=== PATIENT | female | born 1965 | race African-American/Black ===

== ENCOUNTER → 2022-12-08 | Outpatient (REF) | payer MEDICAID, SELFPAY ==
[2022-12-08 08:17] LABS: Absolute Lymphocyte Count 2.65 X10^3/uL (0.83-4.51); Absolute Neutrophil Count 3.5 X10^3/uL (2.0-7.7); Basophil# 0.03 X10^3/uL; Basophil% 0.4 % (0-1); Eosinophil# 0.26 X10^3/uL; Eosinophils% 3.6 % (0-5); Hematocrit 27.6 % (37-47); Lymphocyte # 2.65 X10^3/ul (0.83-4.51); Lymphocyte % 36.4 % (19-41); Mean Corpuscular Hgb 23.4 pg (27.0-32.0); Mean Corpuscular Volume 80.7 fL (81-99); Mean Platelet Vol. 9.2 fl (6.2-12.0); Monocyte# 0.81 X10^3/uL; Monocyte% 11.1 % (0-10); NRBC Flagged by Analyzer 0 % (0-5); Neutrophil # 3.51 X10^3/uL (2.7-7.7); Neutrophil % 48.1 % (47-70); Platelet Count 497 K/mm3 (150-450); RBC Distribution Width CV 17.3 % (11.6-14.6); Red Blood Count 3.42 M/mm3 (4.2-5.4); White Blood Count 7.3 K/mm3 (4.4-11.0)
[2022-12-08 08:33] LABS: Anion Gap 9 (5-15); BUN 39 mg/dL (7-18); BUN/Creat Ratio 32.2 RATIO (10-20); Calcium,Total 9.5 mg/dL (8.5-10.1); Chloride 102 mmol/L (98-107); Creatinine, Serum 1.21 mg/dL (0.55-1.02); EST Glomerular Filtration Rate 49 mL/min (>60); Est Glom Filt Rate - Afr Amer 59 mL/min (>60); Glucose 164 mg/dL (74-106); Magnesium 1.7 mg/dL (1.6-2.6); Sodium Level 137 mmol/L (136-145)
[2022-12-08 08:55] LABS: Vitamin B12 454 pg/mL (211-911); Vitamin D,25 Hydroxy 42.1 ng/mL
== END | disposition home or self-care (01) ==
LOC: OLS.SW 04:39
PROVIDERS: Visit Provider Internal Medicine
DX: D64.9 Anemia, unspecified (principal); I11.0 Hypertensive heart disease with heart failure; I50.9 Heart failure, unspecified; J44.9 Chronic obstructive pulmonary disease, unspecified; E11.9 Type 2 diabetes mellitus without complications; E55.9 Vitamin D deficiency, unspecified
CPT/HCPCS: 36415; 80048; 82306; 82607; 83735; 85025

== ENCOUNTER → 2022-12-12 | Outpatient (REF) | payer MEDICAID, SELFPAY ==
[2022-12-12 09:09] LABS: Absolute Lymphocyte Count 3.28 X10^3/uL (0.83-4.51); Absolute Neutrophil Count 3.9 X10^3/uL (2.0-7.7); Basophil# 0.02 X10^3/uL; Basophil% 0.2 % (0-1); Eosinophil# 0.36 X10^3/uL; Eosinophils% 4.3 % (0-5); Hematocrit 27.9 % (37-47); Lymphocyte # 3.28 X10^3/ul (0.83-4.51); Lymphocyte % 39.2 % (19-41); Mean Corp Hgb Conc 28.7 g/dL (32-36); Mean Corpuscular Hgb 23.9 pg (27.0-32.0); Mean Corpuscular Volume 83.3 fL (81-99); Mean Platelet Vol. 8.8 fl (6.2-12.0); Monocyte# 0.77 X10^3/uL; Monocyte% 9.2 % (0-10); NRBC Flagged by Analyzer 0 % (0-5); Neutrophil # 3.92 X10^3/uL (2.7-7.7); Neutrophil % 46.9 % (47-70); Platelet Count 516 K/mm3 (150-450); RBC Distribution Width CV 17.7 % (11.6-14.6); RBC Distribution Width SD 53.9 fl (35.1-43.9); Red Blood Count 3.35 M/mm3 (4.2-5.4); White Blood Count 8.4 K/mm3 (4.4-11.0)
[2022-12-12 09:31] LABS: Anion Gap 5 (5-15); BUN 34 mg/dL (7-18); BUN/Creat Ratio 32.1 RATIO (10-20); Calcium,Total 9.3 mg/dL (8.5-10.1); Chloride 105 mmol/L (98-107); Creatinine, Serum 1.06 mg/dL (0.55-1.02); EST Glomerular Filtration Rate 57 mL/min (>60); Est Glom Filt Rate - Afr Amer 69 mL/min (>60); Glucose 152 mg/dL (74-106); Magnesium 1.9 mg/dL (1.6-2.6); Potassium 4.2 mmol/L (3.5-5.1); Sodium Level 138 mmol/L (136-145); Thyroid Stim Hormone (TSH) 1.93 uIU/mL (0.358-3.74)
[2022-12-12 09:39] LABS: Hemoglobin A1c 8.3 % (3.8-5.6)
== END | disposition home or self-care (01) ==
LOC: OLS.SW 05:00
PROVIDERS: Visit Provider Internal Medicine
DX: J44.9 Chronic obstructive pulmonary disease, unspecified (principal); E11.65 Type 2 diabetes mellitus with hyperglycemia; N17.9 Acute kidney failure, unspecified; E78.5 Hyperlipidemia, unspecified; Z79.899 Other long term (current) drug therapy
CPT/HCPCS: 36415; 80048; 83036; 83735; 84443; 85025

== ENCOUNTER → 2022-12-19 | Outpatient (REF) | payer MEDICAID, SELFPAY ==
[2022-12-19 09:43] LABS: Absolute Lymphocyte Count 2.36 X10^3/uL (0.83-4.51); Absolute Neutrophil Count 6.3 X10^3/uL (2.0-7.7); Basophil# 0.03 X10^3/uL; Basophil% 0.3 % (0-1); Hematocrit 25.9 % (37-47); Hemoglobin 7.3 g/dL (12.0-15.0); Lymphocyte # 2.36 X10^3/ul (0.83-4.51); Lymphocyte % 23.6 % (19-41); Mean Corp Hgb Conc 28.2 g/dL (32-36); Mean Corpuscular Hgb 23.2 pg (27.0-32.0); Mean Corpuscular Volume 82.2 fL (81-99); Mean Platelet Vol. 9.6 fl (6.2-12.0); Monocyte# 0.94 X10^3/uL; Monocyte% 9.4 % (0-10); NRBC Flagged by Analyzer 0 % (0-5); Neutrophil # 6.32 X10^3/uL (2.7-7.7); Neutrophil % 63.2 % (47-70); Platelet Count 476 K/mm3 (150-450); RBC Distribution Width CV 17.4 % (11.6-14.6); RBC Distribution Width SD 52.8 fl (35.1-43.9); Red Blood Count 3.15 M/mm3 (4.2-5.4)
[2022-12-19 10:03] LABS: Anion Gap 6 (5-15); BUN 39 mg/dL (7-18); BUN/Creat Ratio 28.3 RATIO (10-20); Calcium,Total 8.9 mg/dL (8.5-10.1); Chloride 104 mmol/L (98-107); Creatinine, Serum 1.38 mg/dL (0.55-1.02); EST Glomerular Filtration Rate 42 mL/min (>60); Est Glom Filt Rate - Afr Amer 51 mL/min (>60); Glucose 178 mg/dL (74-106); Potassium 4.2 mmol/L (3.5-5.1); Sodium Level 138 mmol/L (136-145)
== END | disposition home or self-care (01) ==
LOC: OLS.SW 04:00
PROVIDERS: Visit Provider Internal Medicine
DX: J44.9 Chronic obstructive pulmonary disease, unspecified (principal); I13.0 Hypertensive heart and chronic kidney disease with heart failure and stage 1 through stage 4 chronic kidney disease, or unspecified chronic kidney disease; I50.9 Heart failure, unspecified; N18.9 Chronic kidney disease, unspecified; J96.22 Acute and chronic respiratory failure with hypercapnia
CPT/HCPCS: 36415; 80048; 85025

== ENCOUNTER 2022-12-20 10:15 | Inpatient (IN) | payer MEDICAID, SELFPAY ==
[2022-12-20] VITALS (24 sets, daily range): BP systolic 103–155; BP diastolic 64–111; PULSE 73–103; RESP 12–20; TEMP 36–36.9; O2SAT 91–100; BMI 60.5; BMI 57.9
--- NOTE | 2022-12-20 11:01 | EDS_ITS ---
HPI History of Present Illness Chief Complaint: Alt LOC Informant: EMS and SNF Limited: other (Patient is nonverbal) Onset/Context/Timing Onset: Days Context: Gradual Onset Timing: Continuous Narrative Narrative: Patient presents with altered mental status that has been getting worse over the past few days. Patient is nonverbal and is a poor informant. EMS reports that the patient has had not had her dialysis in several days. senior care staff reports that the patient has become more edematous over the past few days. senior care staff denies any fevers or chills. [facility] Medical History Anuria and oliguria Asthma CHF (congestive heart failure) Chronic diastolic (congestive) heart failure Hypertensive heart and chronic kidney disease Muscle weakness Pulmonary edema Home Medications aspirin 81 mg tablet,delayed release 81 mg PO DAILY HEART HEALTH 12/20/22 [History Last Taken 12/19/22] atorvastatin 20 mg tablet 20 mg PO QHS CHOLESTEROL 12/20/22 [History Last Taken 12/19/22] cyclobenzaprine 10 mg tablet 10 mg PO BID MUSCLE SPASMS 12/20/22 [History Last Taken 12/19/22] diclofenac sodium 1 % topical gel 1 ea topical BID PAIN 12/20/22 [History Last Taken 12/19/22] famotidine 20 mg tablet 20 mg PO DAILY ACID REFLUX 12/20/22 [History Last Taken 12/19/22] fluticasone 113 mcg-salmeterol 14 mcg/actuation breath activated powdr 1 inh inhalation BID SHORTNESS OF BREATH 12/20/22 [History Last Taken 12/19/22] gabapentin 300 mg capsule 300 mg PO BID NERVE PAIN 12/20/22 [History Last Taken 12/19/22] hydralazine 50 mg tablet 50 mg PO TID BLOOD PRESSURE 12/20/22 [History Last Taken 12/19/22] insulin glargine 100 unit/mL subcutaneous solution 28 unit subcut BID DIABETES 12/20/22 [History Last Taken 12/19/22] insulin lispro 100 unit/mL subcutaneous pen 20 unit subcut TIDCM DIABETES 12/20/22 [History Last Taken 12/19/22] isosorbide dinitrate 10 mg tablet 10 mg PO TID BLOOD PRESSURE 12/20/22 [History Last Taken 12/19/22] lidocaine 4 % topical patch (Lidocaine Pain Relief) 2 patch topical BID RIGHT SHOULDER/ARM PAIN 12/20/22 [History Last Taken 12/19/22] melatonin 3 mg tablet 3 mg PO QHS PRN Insomnia 12/20/22 [History Last Taken 12/19/22] metoprolol succinate 50 mg tablet,extended release 24 hr 50 mg PO DAILY BLOOD PRESSURE 12/20/22 [History Last Taken 12/19/22] montelukast 10 mg tablet 10 mg PO QHS ALLERGIES 12/20/22 [History Last Taken 12/19/22] multivitamin 1 tab PO DAILY HEALTH MAINTENANCE 12/20/22 [History Last Taken 12/19/22] polyethylene glycol 3350 17 gram oral powder packet 17 g PO DAILY CONSTIPATION 12/20/22 [History Last Taken 12/19/22] risperidone 0.25 mg tablet 0.25 mg PO DAILY DEPRESSION 12/20/22 [History Last Taken 12/19/22] risperidone 0.5 mg tablet (Risperdal) 0.5 mg PO QHS DEPRESSION 12/20/22 [History Last Taken 12/19/22] risperidone 1 mg tablet (Risperdal) 1 mg PO DAILY DEPRESSION 12/20/22 [History Last Taken 12/19/22] sennosides 8.6 mg tablet (senna) 17.2 mg PO DAILY CONSTIPATION 12/20/22 [History Last Taken 12/19/22] sodium bicarbonate 650 mg tablet 650 mg PO TID ACID REFLUX 12/20/22 [History Last Taken 12/19/22] sucralfate 1 gram tablet 1 g PO TID ULCERS 12/20/22 [History Last Taken 12/19/22] torsemide 20 mg tablet 20 mg PO BID FLUID 12/20/22 [History Last Taken 12/19/22] tramadol 50 mg tablet 50 mg PO BID PRN PAIN 12/20/22 [History Last Taken 12/19/22] Allergy/AdvReac Type Severity Reaction Status Date / Time No Known Allergies Allergy Verified 12/20/22 10:29 Surgical History S/P dialysis catheter insertion Social History Smoking Status: Unknown if ever smoked ROS ROS ED Review of Systems ROS Unobtainable: due to mental status EXAM Physical Exam Const Vital Signs: 12/20/22 10:17 12/20/22 11:19 12/20/22 11:21 Temperature 96.8 F L 97.8 F Temperature Source Temporal Temporal Pulse Rate 103 H 97 97 Respiratory Rate 18 14 18 Respiratory Pattern Blood Pressure 129/84 H 128/69 H 128/69 H Blood Pressure Mean 99 88 88 Pulse Ox 93 93 93 Oxygen Delivery Method Nasal Cannula Nasal Cannula Nasal Cannula Oxygen Flow Rate (L/min) 2 Fraction of Inspired Oxygen (FIO2) 12/20/22 12:32 12/20/22 12:30 12/20/22 12:30 Temperature 97 F L Temperature Source Temporal Pulse Rate 95 96 94 Respiratory Rate 15 13 18 Respiratory Pattern Normal Blood Pressure 139/84 H 139/84 H Blood Pressure Mean 102 102 Pulse Ox 95 95 96 Oxygen Delivery Method Bi-pap Bi-pap Oxygen Flow Rate (L/min) Fraction of Inspired Oxygen (FIO2) 30 12/20/22 13:19 12/20/22 14:32 12/20/22 15:31 Temperature Temperature Source Pulse Rate 95 92 73 Respiratory Rate 15 16 15 Respiratory Pattern Blood Pressure 130/80 H 123/82 H 137/109 H Blood Pressure Mean 96 95 118 Pulse Ox 97 98 96 Oxygen Delivery Method Bi-pap Bi-pap Bi-pap Oxygen Flow Rate (L/min) Fraction of Inspired Oxygen (FIO2) 30 Positive well nourished, well developed and obese General Appearance ED: well developed and NAD Nutritional Appearance: obese HEENT Reports moist mucous membranes Neck supple Resp Auscultation: diminished lung sounds diffuse Cardio regular rate and regular rhythm GI non-tender Auscultation: normoactive bowel sounds Palpation: soft Extremity General Extremety ED: Yes edema; Negative for tenderness General Extremity: edema Neuro Sensorium / Orientation: lethargic Motor Exam: general weakness MDM MDM MDM Narrative Medical decision making narrative: Differential diagnosis includes electrolyte abnormality, hepatic encephalopathy, stroke, intracranial bleeding, hypoglycemia, hyperglycemia, CO2 retention, and sepsis. CBC will be obtained to assess for leukocytosis and anemia. Comprehensive metabolic profile will be obtained to assess for electrolyte abnormality, hepatic function, and renal function. CT scan of the brain will be obtained to assess for intracranial bleeding and stroke. Serum lactate will be obtained to assess for sepsis. Blood cultures will be obtained to assess for sepsis. Ammonia level will be obtained to assess for hepatic encephalopathy. Arterial blood gas will be obtained to assess for CO2 retention. Chest x-ray will be obtained to assess for pneumonia. EKG will be obtained to assess for cardiac dysrhythmia and cardiac ischemia. History & Record Review Additional record(s) reviewed:: Prior labs Lab Data Attestation: I reviewed the patient's lab results. Lab results narrative: CBC was reviewed. There is anemia with a hemoglobin of 7.3 and hematocrit 26.0. This is stable compared to previous results. Comprehensive metabolic profile was reviewed. BUN was 43 and creatinine was 1.76. These are only slightly increased from previous results. Total bilirubin was normal at 0.10. Glucose was slightly elevated at 154. BNP was elevated at 664.4. Serum ammonia level was reviewed and was elevated at 53.0. Lactate was reviewed and was normal at 0.7. COVID-19 rapid antigen was reviewed and is negative. Influenza A and influenza B antigens were reviewed and were negative. Arterial blood gas was reviewed. pH was 7.27, bicarb was 29.6, O2 saturation was 91%, PCO2 was elevated at 64.3, PO2 was slightly low at 70. Labs: Laboratory Results - last 24 hr 12/20/22 12/20/22 12/20/22 10:29 10:29 10:29 WBC 10.8 RBC 3.21 L Hgb 7.3 L Hct 26.0 L MCV 81.0 MCH 22.7 L MCHC 28.1 L RDW Std Deviation 51.5 H RDW Coeff of Abbe 17.5 H Plt Count 447 MPV 9.4 Immature Gran % (Auto) 0.600 Neut % (Auto) 58.0 Lymph % (Auto) 28.2 [place] % (Auto) 11.8 H Eos % (Auto) 1.0 Baso % (Auto) 0.4 Absolute Neuts (auto) 6.3 Absolute Lymphs (auto) 3.05 Nucleated RBC % 0 PT 14.2 INR 1.1 APTT 35.2 Sodium 140 Potassium 4.6 Chloride 104 Carbon Dioxide 29.0 Anion Gap 7 BUN 43 H Creatinine 1.76 H Estim Creat Clear Calc 32.50 Est GFR (MDRD) Af Amer 39 L Est GFR (MDRD) Non-Af 32 L BUN/Creatinine Ratio 24.4 H Glucose 154 H Lactic Acid Calcium 8.6 Total Bilirubin 0.10 L AST 22 ALT 16 Alkaline Phosphatase 81 Ammonia B-Natriuretic Peptide Total Protein 7.0 Albumin 2.8 L Globulin 4.2 Albumin/Globulin Ratio 0.7 L 12/20/22 12/20/22 12/20/22 10:29 10:29 10:29 WBC RBC Hgb Hct MCV MCH MCHC RDW Std Deviation RDW Coeff of Abbe Plt Count MPV Immature Gran % (Auto) Neut % (Auto) Lymph % (Auto) [place] % (Auto) Eos % (Auto) Baso % (Auto) Absolute Neuts (auto) Absolute Lymphs (auto) Nucleated RBC % PT INR APTT Sodium Potassium Chloride Carbon Dioxide Anion Gap BUN Creatinine Estim Creat Clear Calc Est GFR (MDRD) Af Amer Est GFR (MDRD) Non-Af BUN/Creatinine Ratio Glucose Lactic Acid 0.7 Calcium Total Bilirubin AST ALT Alkaline Phosphatase Ammonia 53.0 H B-Natriuretic Peptide 664.4 H Total Protein Albumin Globulin Albumin/Globulin Ratio ABG Data ABG results: ABG 12/20/22 11:48 Specimen Type ART Sample Site L Radial pH 7.27 L Bicarbonate Actual 29.6 H Total CO2 32 Base Excess 3 H O2 Saturation 91 L ABG pCO2 64.3 H ABG pO2 70 L Bill Test Positive O2 Delivery Device Cannula Liter Flow 2.0 Radiography Diagnostic Testing: Clinical Impression(s) from Imaging Studies Brain CT 12/20/22 11:07 IMPRESSION: Normal unenhanced CT scan of the brain. Electronically Signed: Jared Walsh MD at 12:22 EDT , Chest X-Ray 12/20/22 11:07 IMPRESSION: CHF Electronically Signed: Jared Walsh MD at 13:24 EDT , CT scan of the brain was obtained. There is no acute intracranial abnormality. This was interpreted by the radiologist and was also independently reviewed by myself. Chest x-ray was obtained. There is 1 view. On my independent interpretation, there is evidence of congestive heart failure. There is no acute infiltrate. Radiologist also interpreted the x-rays and agrees. EKG Initial EKG: Attestation: I personally reviewed and interpreted this EKG as follows: Interpretation: Sinus Rhythm (97) and No Acute Injury Pattern Comments: EKG was obtained. On my independent interpretation, it showed a normal sinus rhythm with a rate of 97. OK interval, QRS interval, and QTc intervals were all normal. There is right axis deviation at 148. There are no acute ST or T wave changes. Prior EKG tracings: not available for review Prior: No Prior Management Discussion w/another healthcare provider: Hospitalist (Dr. Cline) and Night Auditor (Dr. Noriega) Treatment and Re-Evaluation :: Patient was started on BiPAP. Patient was given Lasix. Patient was given a dose of rectal lactulose. Case was discussed with the hospitalist. He recommended contacting the [employer] rep. Case was discussed with Dr. Noriega. He had no further recommendations. Patient will be admitted to ICU. Critical Care Time Critical Care Time: Yes Critical care time (excluding procedures): 30-74 minutes (34), Including time spent:, Discussing w/Patient &/or Family/Community Recreation Coordinator, Discussing w/Consultants, Arranging Admission or Transfer and Performing Direct Patient Care at Bedside Discharge Plan Dx/Rx/DC Orders Clinical Impression: Acute alteration in mental status, Congestive heart failure, Hypercarbia, Hyperammonemia Disposition Disposition: [facility]
--- NOTE | 2022-12-20 11:07 | RAD_ITS ---
STUDY: X-RAY CHEST REASON FOR EXAM: Female, 57 years old. Altered mental status TECHNIQUE: Single AP portable view of the chest. COMPARISON: None. FINDINGS: Right central venous catheter terminates in the distal SVC/right atrial junction. Mild pulmonary vascular congestion is present. No visualized consolidation. There is no demonstrated pleural abnormality. Moderate cardiomegaly. Normal mediastinum and dylan. There is prominence of the pulmonary hilar arteries and peripheral pulmonary arteries, consistent with congestive heart failure (CHF). There is atherosclerotic tortuosity of the aortic arch and descending thoracic aorta. There are diffuse degenerative changes of the visualized thoracic spine. Normal visualized ribs, clavicles, and shoulders. There is no demonstrated abnormality of the visualized soft tissue structures of the upper abdomen. RAD/Chest 1 View (Portable) IMPRESSION: CHF Electronically Signed: Jared Walsh MD at 13:24 EDT ,
--- NOTE | 2022-12-20 11:07 | CT_ITS ---
STUDY: CT BRAIN WITHOUT CONTRAST REASON FOR EXAM: Female, 57 years old. Altered mental status RADIATION DOSAGE (If Supplied By Facility): CTDIvol = ( 47.06 ) mGy, DLP = ( 872.68 ) mGycm TECHNIQUE: Transaxial CT imaging of the brain was performed without administration of intravenous contrast material. Individualized dose optimization techniques were used for this CT. COMPARISON: None. FINDINGS: Normal soft tissue structures. Normal calvarium. No visualized dense artery sign or sulcal effacement or parenchymal edema. No hydrocephalus or midline shift is seen. Normal size ventricles and extra-axial spaces for the patient''s age. Normal white matter tracts of the cerebral hemispheres. Normal basal ganglia and thalami. Normal brainstem. Normal cerebellum. There is no intracranial hemorrhage. There are no findings of an acute ischemic infarction. Normal visualized paranasal sinuses. CT/Brain/Head without Contrast IMPRESSION: Normal unenhanced CT scan of the brain. Electronically Signed: Jared Walsh MD at 12:22 EDT ,
--- NOTE | 2022-12-20 11:07 | EKG12_ITS ---
Test Reason : UNRESPONSIVE Blood Pressure : / mmHG Vent. Rate : 097 BPM Atrial Rate : 097 BPM P-R Int : 194 ms QRS Dur : 086 ms QT Int : 360 ms P-R-T Axes : 063 148 045 degrees QTc Int : 457 ms Sinus rhythm with frequent Premature ventricular complexes Right axis deviation Low voltage QRS Cannot rule out Anterior infarct , age undetermined Abnormal ECG Confirmed by PILI ARREDONDO, CRIS ([id number]), features editor AIMEE BORGES ([id number]) on 12/22/2022 8:52:03 AM Referred By: KLEBER Confirmed By:CRIS ALEJANDRE MD
[2022-12-20 11:21] LABS: Absolute Lymphocyte Count 3.05 X10^3/uL (0.83-4.51); Absolute Neutrophil Count 6.3 X10^3/uL (2.0-7.7); Basophil# 0.04 X10^3/uL; Basophil% 0.4 % (0-1); Eosinophil# 0.11 X10^3/uL; Hemoglobin 7.3 g/dL (12.0-15.0); Lymphocyte # 3.05 X10^3/ul (0.83-4.51); Lymphocyte % 28.2 % (19-41); Mean Corp Hgb Conc 28.1 g/dL (32-36); Mean Corpuscular Hgb 22.7 pg (27.0-32.0); Mean Platelet Vol. 9.4 fl (6.2-12.0); Monocyte# 1.28 X10^3/uL; Monocyte% 11.8 % (0-10); NRBC Flagged by Analyzer 0 % (0-5); Neutrophil # 6.29 X10^3/uL (2.7-7.7); Platelet Count 447 K/mm3 (150-450); RBC Distribution Width CV 17.5 % (11.6-14.6); RBC Distribution Width SD 51.5 fl (35.1-43.9); Red Blood Count 3.21 M/mm3 (4.2-5.4); White Blood Count 10.8 K/mm3 (4.4-11.0)
[2022-12-20 11:50] LABS: International Normalized Ratio 1.1; Prothrombin Time (Protime)PT. 14.2 SECONDS (11.7-14.9)
[2022-12-20 11:51] LABS: Partial Thromboplast Time 35.2 Seconds (24.1-36.2)
[2022-12-20 11:55] LABS: Allen Test Positive; Base Excess 3 mmol/L (-2 to +2); Bicarbonate 29.6 mmol/L (22-26); Blood Gas Specimen Type ART; O2 Delivery Device Cannula; PO2 70 mmHG (75-100); SITE L Radial; SO2 91 % (95-99); Total Carbon Dioxide 32 mmol/L; pCO2 64.3 mmHg (35-45); pH 7.27 (7.35-7.45)
[2022-12-20 11:59] LABS: BNP,B-Type NATRIURETIC PEPTIDE 664.4 pg/mL (0-100)
[2022-12-20 12:32] LABS: ALB/GLOB Ratio 0.7 RATIO (0.9-2.4); AST(SGOT) 22 U/L (15-37); Alanine Aminotransfer ALT/SGPT 16 U/L (13-56); Albumin, Serum 2.8 g/dL (3.2-5.0); Alkaline Phosphatase 81 U/L (45-117); Anion Gap 7 (5-15); BUN 43 mg/dL (7-18); BUN/Creat Ratio 24.4 RATIO (10-20); Calcium,Total 8.6 mg/dL (8.5-10.1); Chloride 104 mmol/L (98-107); Creatinine, Serum 1.76 mg/dL (0.55-1.02); EST Glomerular Filtration Rate 32 mL/min (>60); Est Glom Filt Rate - Afr Amer 39 mL/min (>60); Globulin 4.2 g/dL (2.2-4.2); Glucose 154 mg/dL (74-106); Lactic Acid 0.7 mmol/L (0.4-1.9); Potassium 4.6 mmol/L (3.5-5.1); Sodium Level 140 mmol/L (136-145)
[2022-12-20] MEDS: Furosemide 40 MG/4 ML Vial IV ×2 (14:55→18:48)
[2022-12-20] MEDS: Lactulose 20 GM/30 ML UDC 200 GM RC (15:14)
--- NOTE | 2022-12-20 15:16 | HP.PCM.HOS_ITS ---
HPI - General General Date of Admission: 12/20/22 Date of Service: 12/20/22 Chief Complaint: Decreased responsiveness over last few days to the point of minimal responsiveness in the morning as described by EMS. HPI Narrative CELESTE MOLINA, is a 57 F morbid obesity, [facility] resident was brought to ED by EMS from [facility] for for minimal responsiveness only to sternal rub. As per nursing staff she was alert oriented times 3 in the morning but from EMS it seems she had decreased responsiveness last few days. Patient is also edematous in all 4 extremities. Glucose 210 by EMS. She also has limited mobility on wheelchair. No history of fever from [facility]. There were no medication given in the morning. Patient has history of COPD on 3 L of oxygen through nasal cannula and BiPAP at night. Patient has right permacath and was admitted on December [address] [facility] to [facility] and since then was not dialyzed. Her kidney function does not show high creatinine and electrolytes in normal range. From [facility] documentation it seems patient has chronic systolic and diastolic heart failure, pulmonary edema and past, hypertension, DM type II and chronic kidney disease EMS vitals 128/70 heart rate 103/min. Patient was short of breath In ED, ABG shows high PCO2 64.3, pH 7.27 PO2 70 on 2 L of oxygen through nasal cannula and then put on BiPAP. Lactic acid normal. Ammonia 53 although unclear about history of chronic liver disease. BNP high 664. Twelve-lead EKG individually reviewed and shows sinus rhythm with frequent PVCs, RAD, low voltage QRS QTc 457 ms. Chest x-ray mutilative and portable x-ray with poor penetration. Consistent with vascular congestion/CHF. CT head without contrast reported normal. [facility] Medical History Anuria and oliguria Asthma CHF (congestive heart failure) Chronic diastolic (congestive) heart failure Hypertensive heart and chronic kidney disease Muscle weakness Pulmonary edema Home Medications aspirin 81 mg tablet,delayed release 81 mg PO DAILY HEART HEALTH 12/20/22 [History Last Taken 12/19/22] atorvastatin 20 mg tablet 20 mg PO QHS CHOLESTEROL 12/20/22 [History Last Taken 12/19/22] cyclobenzaprine 10 mg tablet 10 mg PO BID MUSCLE SPASMS 12/20/22 [History Last Taken 12/19/22] diclofenac sodium 1 % topical gel 1 ea topical BID PAIN 12/20/22 [History Last Taken 12/19/22] famotidine 20 mg tablet 20 mg PO DAILY ACID REFLUX 12/20/22 [History Last Taken 12/19/22] fluticasone 113 mcg-salmeterol 14 mcg/actuation breath activated powdr 1 inh inhalation BID SHORTNESS OF BREATH 12/20/22 [History Last Taken 12/19/22] gabapentin 300 mg capsule 300 mg PO BID NERVE PAIN 12/20/22 [History Last Taken 12/19/22] hydralazine 50 mg tablet 50 mg PO TID BLOOD PRESSURE 12/20/22 [History Last Taken 12/19/22] insulin glargine 100 unit/mL subcutaneous solution 28 unit subcut BID DIABETES 12/20/22 [History Last Taken 12/19/22] insulin lispro 100 unit/mL subcutaneous pen 20 unit subcut TIDCM DIABETES 12/20/22 [History Last Taken 12/19/22] isosorbide dinitrate 10 mg tablet 10 mg PO TID BLOOD PRESSURE 12/20/22 [History Last Taken 12/19/22] lidocaine 4 % topical patch (Lidocaine Pain Relief) 2 patch topical BID RIGHT SHOULDER/ARM PAIN 12/20/22 [History Last Taken 12/19/22] melatonin 3 mg tablet 3 mg PO QHS PRN Insomnia 12/20/22 [History Last Taken 12/19/22] metoprolol succinate 50 mg tablet,extended release 24 hr 50 mg PO DAILY BLOOD PRESSURE 12/20/22 [History Last Taken 12/19/22] montelukast 10 mg tablet 10 mg PO QHS ALLERGIES 12/20/22 [History Last Taken 12/19/22] multivitamin 1 tab PO DAILY HEALTH MAINTENANCE 12/20/22 [History Last Taken 12/19/22] polyethylene glycol 3350 17 gram oral powder packet 17 g PO DAILY CONSTIPATION 12/20/22 [History Last Taken 12/19/22] risperidone 0.25 mg tablet 0.25 mg PO DAILY DEPRESSION 12/20/22 [History Last Taken 12/19/22] risperidone 0.5 mg tablet (Risperdal) 0.5 mg PO QHS DEPRESSION 12/20/22 [History Last Taken 12/19/22] risperidone 1 mg tablet (Risperdal) 1 mg PO DAILY DEPRESSION 12/20/22 [History Last Taken 12/19/22] sennosides 8.6 mg tablet (senna) 17.2 mg PO DAILY CONSTIPATION 12/20/22 [History Last Taken 12/19/22] sodium bicarbonate 650 mg tablet 650 mg PO TID ACID REFLUX 12/20/22 [History Last Taken 12/19/22] sucralfate 1 gram tablet 1 g PO TID ULCERS 12/20/22 [History Last Taken 12/19/22] torsemide 20 mg tablet 20 mg PO BID FLUID 12/20/22 [History Last Taken 12/19/22] tramadol 50 mg tablet 50 mg PO BID PRN PAIN 12/20/22 [History Last Taken 12/19/22] Allergy/AdvReac Type Severity Reaction Status Date / Time No Known Allergies Allergy Verified 12/20/22 10:29 Surgical History S/P dialysis catheter insertion Social History Smoking Status: Unknown if ever smoked ROS ROS Narrative 14 system ROS unobtainable/incomplete as patient is minimally responsive to sternal rub. Rest as documented in HPI. Review of Systems ROS Unobtainable: due to encephalopathy and due to mental condition Vital Signs Vital Signs Vital Signs: 12/20/22 10:17 12/20/22 11:19 12/20/22 11:21 Temperature 96.8 F L 97.8 F Temperature Source Temporal Temporal Pulse Rate 103 H 97 97 Respiratory Rate 18 14 18 Respiratory Pattern Blood Pressure 129/84 H 128/69 H 128/69 H Blood Pressure Mean 99 88 88 Pulse Ox 93 93 93 Oxygen Delivery Method Nasal Cannula Nasal Cannula Nasal Cannula Oxygen Flow Rate (L/min) 2 Fraction of Inspired Oxygen (FIO2) 12/20/22 12:32 12/20/22 12:30 12/20/22 12:30 Temperature 97 F L Temperature Source Temporal Pulse Rate 95 96 94 Respiratory Rate 15 13 18 Respiratory Pattern Normal Blood Pressure 139/84 H 139/84 H Blood Pressure Mean 102 102 Pulse Ox 95 95 96 Oxygen Delivery Method Bi-pap Bi-pap Oxygen Flow Rate (L/min) Fraction of Inspired Oxygen (FIO2) 30 12/20/22 13:19 12/20/22 14:32 Temperature Temperature Source Pulse Rate 95 92 Respiratory Rate 15 16 Respiratory Pattern Blood Pressure 130/80 H 123/82 H Blood Pressure Mean 96 95 Pulse Ox 97 98 Oxygen Delivery Method Bi-pap Bi-pap Oxygen Flow Rate (L/min) Fraction of Inspired Oxygen (FIO2) Weight Weight: 363 lb 12.203 oz Body Mass Index (BMI) 60.5 Physical Exam Narrative General: Minimally responsive to sternal rub with eye opening. HEENT: Atraumatic, PERRLA, EOMI, Normocephalic Oral: On BiPAP. No Gingival or Mucosal Lesions/ Ulcerations Neck: Large short neck. JVP could not be evaluated as patient on PPV. Supple, Negative Carotid Bruits Lungs: On NIPPV. Air entry severely diminished in both lung [place]. Bilateral expiratory rhonchi. Cardiovascular: Sinus tachycardia, muffled heart sound. No murmurs Abdomen: Bowel Sounds Present, Soft, Non Tender, large abdominal fat : No renal angle tenderness. No suprapubic tenderness. Extremities: All 4 extremities edema. Upper extremity edema up to hand. Lower extremity up to thigh level. Capillary Refill Less than 3 Seconds Skin: Bilateral groin yeast infection/stress Musculoskeletal: Severe degenerative bilateral knee and hip arthritis. Knee bones hard to palpate. No Tenderness to Palpation of Joints or Extremities Neurological: Detailed neuro exams unobtainable. Psych/Mental Status: Minimally responsive. Results Lab / Micro Data Result Diagrams: 12/20/22 10:29 12/20/22 10:29 Labs: Laboratory Results - last 24 hr 12/20/22 10:29: WBC 10.8, RBC 3.21 L, Hgb 7.3 L, Hct 26.0 L, MCV 81.0, MCH 22.7 L, MCHC 28.1 L, RDW Std Deviation 51.5 H, RDW Coeff of Abbe 17.5 H, Plt Count 447, MPV 9.4, Immature Gran % (Auto) 0.600, Neut % (Auto) 58.0, Lymph % (Auto) 28.2, [place] % (Auto) 11.8 H, Eos % (Auto) 1.0, Baso % (Auto) 0.4, Absolute Neuts (auto) 6.3, Absolute Lymphs (auto) 3.05, Nucleated RBC % 0 12/20/22 10:29: PT 14.2, INR 1.1, APTT 35.2 12/20/22 10:29: Sodium 140, Potassium 4.6, Chloride 104, Carbon Dioxide 29.0, Anion Gap 7, BUN 43 H, Creatinine 1.76 H, Estim Creat Clear Calc 32.50, Est GFR (MDRD) Af Amer 39 L, Est GFR (MDRD) Non-Af 32 L, BUN/Creatinine Ratio 24.4 H, Glucose 154 H, Calcium 8.6, Total Bilirubin 0.10 L, AST 22, ALT 16, Alkaline Phosphatase 81, Total Protein 7.0, Albumin 2.8 L, Globulin 4.2, Albumin/Globulin Ratio 0.7 L 12/20/22 10:29: B-Natriuretic Peptide 664.4 H 12/20/22 10:29: Lactic Acid 0.7 12/20/22 10:29: Ammonia 53.0 H Micro: Microbiology 12/20/22 11:18 Nasal Secretion SARS-CoV-2 & FLU Antigen (Rapid) - Final ABG Data ABG results: ABG 12/20/22 11:48 Specimen Type ART Sample Site L Radial pH 7.27 L Bicarbonate Actual 29.6 H Total CO2 32 Base Excess 3 H O2 Saturation 91 L ABG pCO2 64.3 H ABG pO2 70 L Bill Test Positive O2 Delivery Device Cannula Liter Flow 2.[address] 12/20/22 11:07 IMPRESSION: Normal unenhanced CT scan of the brain. Electronically Signed: Jared Walsh MD at 12:22 EDT , Chest X-Ray 12/20/22 11:07 IMPRESSION: CHF Electronically Signed: Jared Walsh MD at 13:24 EDT , Assessment & Plan Assessment/Plan (1) Acute alteration in mental status: (2) Acute and chronic respiratory failure with hypercapnia: (3) Acute on chronic combined systolic and diastolic heart failure: PLAN: Plan CELESTE MOLINA, is a 57 F morbid obesity, [facility] resident was brought to ED by EMS from [facility] for for minimal responsiveness only to sternal rub and symptoms signs consistent with acute on chronic combined respiratory failure. 1. Altered mental status/minimally responsive, exact etiology unclear possible metabolic: Patient is being admitted in ICU. Continue on BiPAP. Infectious work-up ordered including blood cultures, sputum culture, urinary antigens, COVID-19 and respiratory panel. Ammonia 53 of unclear significance. Lactulose enema ordered in ER. Rest as mentioned below. 2. Acute on chronic combined systolic and diastolic heart failure: Chest x-ray consistent with pulmonary vascular congestion/CHF. BNP high. Patient has first ED visit here.No prior imaging echo. 2D echo ordered. Lasix 40 mg IV given in ED. Patient going to have Dalton catheter in ED. If patient does not make urine we will repeat 80 mg IV Lasix after few hours. Discussed with the supervisor international reservations. Heart failure core measures including intake and output, fluid restriction less than 1500 mL, daily weight monitoring, kidney and electrolytes monitoring 3. Acute on chronic combined respiratory failure with history of COPD: Patient on baseline 3 L of oxygen during daytime and BiPAP at night in [facility]. Currently patient is on BiPAP and maintaining her airway. ICU monitoring and if needed will intubate and put on ventilator. Geological E Logger consulted. On DuoNeb, IV Solu-Medrol and oxygen therapy. Incentive spirometry and Pep after patient is more awake. Empirically patient started on IV antibiotic Zosyn although no clear evidence of infection for now. 4. Chronic kidney disease of unclear restaging: BUNs/creatinine 43/1.76. As per [facility], patient has chronic kidney disease and probably was dialyzed about 3 weeks ago. Creatinine clearance is 32 mill per minute. Book Critic is consulted. If patient does not make urine will need hemodialysis. Patient has a right upper chest permacath 5. Diabetes mellitus type 2: Glucose 154 in BMP. Accu-Cheks every 6 hours incorrigible of sliding scale. 6. Other multiple comorbidities include hypertension, limited functional capacity/physical deconditioning with bilateral degenerative knee arthritis on wheelchair, morbid obesity BMI 60.5 kg/m?, smoker unclear whether she quit or active smoking. Living will/advanced directive/end of life care: As per [facility] documentation patient is full code. There is no living will/advanced directive in patient's chart in ED. Her daughter Carlota Molina is listed as next of kin. We will keep as full code for now Total time spent in [id number] encounter in discussion of advanced directive 17 minutes. Microbiology Past 72 Hours 12/20/22 11:18 Nasal Secretion SARS-CoV-2 & FLU Antigen (Rapid) - Final Laboratory Results 12/20/22 10:29: WBC 10.8, RBC 3.21 L, Hgb 7.3 L, Hct 26.0 L, MCV 81.0, MCH 22.7 L, MCHC 28.1 L, RDW Std Deviation 51.5 H, RDW Coeff of Abbe 17.5 H, Plt Count 447, MPV 9.4, Immature Gran % (Auto) 0.600, Neut % (Auto) 58.0, Lymph % (Auto) 28.2, [place] % (Auto) 11.8 H, Eos % (Auto) 1.0, Baso % (Auto) 0.4, Absolute Neuts (auto) 6.3, Absolute Lymphs (auto) 3.05, Nucleated RBC % 0 12/20/22 10:29: PT 14.2, INR 1.1, APTT 35.2 12/20/22 10:29: Sodium 140, Potassium 4.6, Chloride 104, Carbon Dioxide 29.0, Anion Gap 7, BUN 43 H, Creatinine 1.76 H, Estim Creat Clear Calc 32.50, Est GFR (MDRD) Af Amer 39 L, Est GFR (MDRD) Non-Af 32 L, BUN/Creatinine Ratio 24.4 H, Glucose 154 H, Calcium 8.6, Total Bilirubin 0.10 L, AST 22, ALT 16, Alkaline Td sphatase 81, Total Protein 7.0, Albumin 2.8 L, Globulin 4.2, Albumin/Globulin Ratio 0.7 L 12/20/22 10:29: B-Natriuretic Peptide 664.4 H 12/20/22 10:29: Lactic Acid 0.7 12/20/22 10:29: Ammonia 53.0 H 12/20/22 11:48: Specimen Type ART, Sample Site L Radial, pH 7.27 L, Bicarbonate Actual 29.6 H, Total CO2 32, Base Excess 3 H, O2 Saturation 91 L, ABG pCO2 64.3 H, ABG pO2 70 L, Bill Test Positive, O2 Delivery Device Cannula, Liter Flow 2.0 Clinical Impression(s) from Imaging Studies Brain CT 12/20/22 11:07 IMPRESSION: Normal unenhanced CT scan of the brain. Chest X-Ray 12/20/22 11:07 IMPRESSION: CHF Electronically Signed: Jared Walsh MD at 13:24 EDT Reading Location ID and State: [address] [place] [address] , Service support , Charges/Coding Visit Charges Inpatient E&M: 68739 Init Hosp L3 Procedures Hospitalists Procedures: 21111 Advncd Care Plan 30 Min
--- NOTE | 2022-12-20 15:37 | ED.RN ---
ATTEMPTED TO DO LACTULOSE ENEMA, UNSUCCESSFUL. PT UNABLE TO HOLD ENEMA. DR SMITH MADE AWARE.
--- NOTE | 2022-12-20 16:18 | ECHOCS_ITS ---
Reason For Study: heart failure Procedure This was a 2D Doppler, Color Flow transthoracic echocardiogram. The study was technically limited. The study was technically difficult. Due to patient being uncooperative/emotional. Exam performed portable in ICU/CCU. Left Ventricle Normal left ventricle. Mild concentric left ventricular hypertrophy. The estimated ejection fraction is 45 %. There is mild to moderate global hypokinesis of the left ventricle. Right Ventricle Normal RV size. Normal systolic function. Atria The left atrium is moderately enlarged. Normal right atrium. Tricuspid Valve The tricuspid valve is not well visualized. Mild tricuspid valve insufficiency. Pulmonary artery systolic pressure is 35 mmHg. Pericardium/Pleural No pericardial effusion. Medication Diluted definity 7.0ml given slow IV push to enhance endocardial definition. MMode/2D Measurements & Calculations LVIDd: 5.3 cm IVSd: 1.4 cm Ao root diam: 3.2 cm LVIDs: 4.1 cm LVPWd: 1.5 cm RVDd: 4.3 cm FS: 23.8 % LAV(MOD-bp): 109.0 ml SV(MOD-sp4): 77.2 ml LVAd ap4: 42.1 cm2 LAV(MOD-bp) Indexed: 42.9 ml/m2 LVLd ap4: 9.5 cm LAV(MOD-sp2): 106.7 ml EDV(MOD-sp4): 156.7 ml LAV(MOD-sp4): 106.8 ml EDV(sp4-el): 158.8 ml LVAs ap4: 26.5 cm2 LVLs ap4: 7.6 cm ESV(MOD-sp4): 79.5 ml ESV(sp4-el): 79.0 ml EF(MOD-sp4): 49.3 % EF(sp4-el): 50.2 % SV(sp4-el): 79.8 ml LA A4 area: 28.5 cm2 LA dimension(2D): 5.5 cm RA A4 area: 18.3 cm2 Time Measurements MV dec time: 0.11 sec Doppler Measurements & Calculations MV E max krishna: 112.1 cm/sec Ao V2 max: 136.4 cm/sec LV V1 max: 78.3 cm/sec MV A max krishna: 84.0 cm/sec Ao max P.4 mmHg LV V1 max P.5 mmHg MV E/A: 1.3 Ao V2 mean: 96.3 cm/sec LV V1 mean P.6 mmHg Ao mean P.0 mmHg LV V1 mean: 62.2 cm/sec Ao V2 VTI: 22.5 cm LV V1 VTI: 15.6 cm AV (velocity ratio): 0.69 PA V2 max: 77.4 cm/sec TR max krishna: 274.2 cm/sec TR max P.1 mmHg ECHO/Echo Complete W/ Contrast Interpretation Summary Normal left ventricle. The estimated ejection fraction is 45 %. There is mild to moderate global hypokinesis of the left ventricle. Mild concentric left ventricular hypertrophy. Pulmonary artery systolic pressure is 35 mmHg. Contrast injection was performed. Ordering Physician: Alexandr Cline Referring Physician: Isha Alberts Performed By: Racheal Garcia RDCS, RVT
--- NOTE | 2022-12-20 16:46 | ED.RN ---
report called per jonelle andino rn to icu. cps called and pt placed on 3lnc and cps following with bipap. pt stayed with pox 94-95% during transfer.
[2022-12-20 17:20] LABS: Bedside Glucose 117 mg/dL (74-106)
[2022-12-20] MEDS: Heparin Injection (Vial) 5,000 UNIT/ML VIAL 5000 UNIT SC ×2 (17:48→22:22)
[2022-12-20] MEDS: Aspirin E.C. 81 MG Tablet PO (17:49)
[2022-12-20] MEDS: 0.9% Saline Lock 10 ML Syringe IV (18:48)
[2022-12-20] MEDS: Ipratropium/Albuterol Sulfate 3 ML AMPUL.NEB INHALATION ×2 (19:10→23:14)
[2022-12-20] MEDS: Atorvastatin Calcium 40 MG Tablet PO (22:22)
[2022-12-20 22:47] LABS: CPK Total, Creatine Kinase 77 U/L (26-192); Magnesium 2.4 mg/dL (1.6-2.6); Phosphorus 5.5 mg/dL (2.5-4.9); Troponin-I HS 260 pg/mL (3.0-54.0)
[2022-12-21] VITALS (30 sets, daily range): BP systolic 99–150; BP diastolic 64–100; PULSE 90–101; RESP 12–26; TEMP 36.1–37.2; O2SAT 90–98; BMI 58.0
[2022-12-21] MEDS: Ipratropium/Albuterol Sulfate 3 ML AMPUL.NEB INHALATION ×4 (03:39→23:02)
--- NOTE | 2022-12-21 03:40 | NURSING ---
pt refused labs this AM.
[2022-12-21] MEDS: Heparin Injection (Vial) 5,000 UNIT/ML VIAL 5000 UNIT SC ×3 (05:05→20:32)
--- NOTE | 2022-12-21 06:53 | PN.HOSP_ITS ---
Reason for Visit Reason for Visit: Altered mental status Subjective Subjective Mrs. Carroll is a 57-year-old white female who who has a history of morbid obesity and resides in a local correction who was brought to the emergency department at [facility] on 12/20/2022 for minimal responsiveness only to sternal rub. Evidently she was alert and oriented times 3 in the morning but per EMS documentation decreased responsiveness over the last few days was noted. Blood sugar was normal. She is O2 dependent with 3 L of oxygen at baseline and BiPAP at night. ABG showed hypercapnia on 2 L and a respiratory acidosis. pH was 7.27/PCO2 was 64.3/PO2 is 70 on 2 L supplemental nasal cannula. CBC showed a stable normocytic anemia. Chemistry panel showed a serum creatinine is elevated and seems to be rising when compared to previous data. The patient has evidently been on dialysis previously. Her ammonia level is slightly elevated at 53. Her initial troponin was 260. BNP was elevated at 664.4. Vital signs have overall been stable however patient is requiring a bit more oxygen than her baseline is currently on 5 L nasal cannula with an oxygen saturation of 90%. Patient's mental status is returned to baseline. She has multiple complaints about what happened overnight with regards to nursing. I have asked her to discuss this with the new word processing supervisor and she will go ahead and do that. She is complaining of right shoulder pain and right arm swelling. She states the shoulder pain started when she had a fall the other day. She really wants to go back to [facility] today and I expressed to her that if we can keep things stabilized and her work-up is unremarkable tomorrow we may be able to go ahead and do that. She voiced understanding and thought that sounded like a good plan. I was unable to ascertain with a direct answer if she has been getting her BiPAP at night since she has been at [facility]. Objective Data Objective Data Vital Signs: Vital Signs Temp Pulse Resp BP Pulse Ox O2 Del Method O2 Flow Rate 98.3 F 94 18 131/72 H 90 Nasal Cannula 5 12/21/22 06:00 12/21/22 06:00 12/21/22 06:00 12/21/22 06:00 12/21/22 06:00 12/21/22 06:00 12/21/22 06:00 FiO2 30 12/21/22 03:37 Oxygen Flow Rate (L/min) 5 Oxygen Delivery Method Nasal Cannula Weight: 163.7 kg Body Mass Index (BMI) 58.0 Intake & Output: Intake and Output for Last 24 Hours 12/19/22 12/20/22 12/21/22 23:59 23:59 23:59 Intake Total 50.25 / 50.25 77 / 77 Output Total 1200 / 1200 550 / 550 Balance -1149.75 / -1149.75 -473 / -473 Lab / Micro Data Result Diagrams: 12/21/22 07:50 12/21/22 07:50 Labs: Laboratory Results - last 24 hr 12/20/22 10:29: WBC 10.8, RBC 3.21 L, Hgb 7.3 L, Hct 26.0 L, MCV 81.0, MCH 22.7 L, MCHC 28.1 L, RDW Std Deviation 51.5 H, RDW Coeff of Abbe 17.5 H, Plt Count 447, MPV 9.4, Immature Gran % (Auto) 0.600, Neut % (Auto) 58.0, Lymph % (Auto) 28.2, [place] % (Auto) 11.8 H, Eos % (Auto) 1.0, Baso % (Auto) 0.4, Absolute Neuts (auto) 6.3, Absolute Lymphs (auto) 3.05, Nucleated RBC % 0 12/20/22 10:29: PT 14.2, INR 1.1, APTT 35.2 12/20/22 10:29: Sodium 140, Potassium 4.6, Chloride 104, Carbon Dioxide 29.0, Anion Gap 7, BUN 43 H, Creatinine 1.76 H, Estim Creat Clear Calc 32.50, Est GFR (MDRD) Af Amer 39 L, Est GFR (MDRD) Non-Af 32 L, BUN/Creatinine Ratio 24.4 H, Glucose 154 H, Calcium 8.6, Total Bilirubin 0.10 L, AST 22, ALT 16, Alkaline Phosphatase 81, Total Protein 7.0, Albumin 2.8 L, Globulin 4.2, Albumin/Globulin Ratio 0.7 L 12/20/22 10:29: B-Natriuretic Peptide 664.4 H 12/20/22 10:29: Lactic Acid 0.7 12/20/22 10:29: Ammonia 53.0 H 12/20/22 10:29: Phosphorus 5.5 H, Magnesium 2.4, Total Creatine Kinase 77, Troponin I High Sens 260 H* 12/20/22 15:35: COVID-19 (NAVID) Not Detected 12/20/22 16:58: POC Glucose 117 H Micro: Microbiology 12/20/22 17:05 Mucosa - Nasopharyngeal Respiratory Panel (PCR) - Final 12/20/22 11:18 Nasal Secretion SARS-CoV-2 & FLU Antigen (Rapid) - Final ABG Data ABG results: ABG 12/20/22 11:48 Specimen Type ART Sample Site L Radial pH 7.27 L Bicarbonate Actual 29.6 H Total CO2 32 Base Excess 3 H O2 Saturation 91 L ABG pCO2 64.3 H ABG pO2 70 L Bill Test Positive O2 Delivery Device Cannula Liter Flow 2.0 Radiography Diagnostic Testing: Radiology Impression Brain CT 12/20/22 11:07 IMPRESSION: Normal unenhanced CT scan of the brain. Electronically Signed: Jared Walsh MD at 12:22 EDT Reading Location ID and State: [facility] / [place] , Service support , Chest X-Ray 12/20/22 11:07 IMPRESSION: CHF Electronically Signed: Jared Walsh MD at 13:24 EDT , Physical Exam Const alert, oriented x3, no apparent distress and well nourished; Negative for average body habitus or healthy appearing Constitutional Narrative: Morbidly obese, -[place] female, sitting up in bed, argumentative during interview however cooperative on physical exam, appears comfortable and nontoxic HEENT head/scalp atraumatic and moist oral mucous membranes HEENT Narrative: Mallampati 4, no thrush Head and Scalp: normocephalic Resp normal respiratory effort, no retractions, no use of accessory muscles and clear to auscultation bilaterally Resp Narrative: Diffusely diminished and distant due to body habitus Auscultation: Negative for rales, rhonchi or wheezes Cardio regular rate, regular rhythm, S1 normal heart sound, S2 normal heart sound, no murmurs, no rub, no gallops and no clicks Cardio Narrative: Distant due to body habitus GI normal to inspection, nondistended, normoactive bowel sounds, soft to palpation and non-tender Extremity Extremity Narrative: Right upper extremity swelling, decreased movement in right shoulder due to pain, no cyanosis or clubbing Skin Skin Narrative: Right-sided tunneled dialysis catheter-dressed, clean and dry, no drainage no significant tenderness Neuro oriented x3, CN's II-XII intact bilaterally, moves all extremities and no focal motor deficits Speech: speech normal Psych Psych Narrative: Agitated and argumentative Assessment & Plan Assessment/Plan (1) Acute on chronic combined systolic and diastolic heart failure: (2) Acute on chronic respiratory failure with hypoxia and hypercapnia: (3) Hyperammonemia: (4) Elevated troponin I level: (5) Swelling of right upper extremity: (6) Right shoulder pain: (7) JONATHAN (acute kidney injury): (8) Metabolic encephalopathy: (9) Fatty liver: (10) Microcytic anemia: (11) Superficial venous thrombosis of arm: PLAN: Plan Acute on chronic hypoxic and hypercapnic respiratory failure -Suspect multifactorial -Doubt infectious--> no leukocytosis or left shift -Discontinue Zosyn -Continue Lasix -Discontinue steroids -Check echocardiogram -?Compliance with BiPAP at at bedtime at facility -Start BiPAP with naps and at bedtime here -Dependent on oxygen at baseline 3 L -Currently requiring 5 L -Continue I-S -Continue Acapella -Pulm/critical care medicine consulted Toxic/metabolic encephalopathy -Suspect related to respiratory acidosis -Possibly complicated by medications and hyperammonemia -Start lactulose daily -Status is back to baseline -Hold Ultram -Restart gabapentin -Restart Risperdal at lower dose Troponin elevation -Mild and has trended down since improvement in renal function -Suspect related to hypoxia -Echocardiogram pending Right upper extremity swelling and pain -Right upper extremity Doppler showed superficial thrombus in the cephalic vein -No further treatment needed -X-rays were suggestive of right shoulder dislocation -Discussed case with orthopedic surgery and they recommended CAT scan and if truly dislocated recommended transfer to tertiary center -Discussed with patient and she would prefer [facility] or [facility] if there is dislocation -CT results pending -Elevate as able -Minimize movement -As needed pain medication Hyperammonemia -Lactulose daily -Right upper quadrant ultrasound shows fatty liver -Suspect KEARNEY -Would recommend outpatient GI follow-up Microcytic anemia -Documented the patient had recent GI bleed -Hemoglobin has been stable overnight -Iron studies obtained and are consistent with anemia of chronic disease -Continue home famotidine -Continue oral sodium bicarb for reflux -Can continue Carafate JONATHAN on CKD stage III -Slight bump in serum creatinine on presentation however this is resolved -Neurology was consulted and recommend discontinuation of tunneled dialysis ca theter -General surgery consulted and plan is for removal tomorrow Constipation -Lactulose should help -Continue home polyethylene glycol -As needed docusate DM-2 -Restart glargine 28 units twice daily -Start lispro 20 units 3 times daily -Continue sliding scale -Accu-Cheks as ordered Diabetic neuropathy -Restart gabapentin Hypertension/hyperlipidemia -Restart isosorbide dinitrate -Restart hydralazine -Restart statin -Restart aspirin Seasonal allergies -Restart Singulair Depression -Restart Risperdal at slightly lower dose LAVERN -Nocturnal BiPAP -BiPAP with naps Morbid obesity -BMI is 58.2 -Recommend weight loss -Complicates treatment, prognosis, outcomes DVT prophylaxis -Subcu heparin CODE STATUS Full code Charges/Coding Visit Charges Inpatient E&M: 77739 Subs Hosp L2
--- NOTE | 2022-12-21 07:03 | US_ITS ---
STUDY: ABDOMINAL ULTRASOUND - RIGHT UPPER QUADRANT REASON FOR VISIT: Female, 57 years old elevated LFTs TECHNIQUE: Ultrasound evaluation of the right upper quadrant was performed with real-time and static chino-scale imaging. TECHNICAL QUALITY: Limited. Examination limited due to a combination of factors including obesity and bowel gas, and patient condition. COMPARISON: None. FINDINGS: Liver: The liver measures 22.6 cm. There is increased echogenicity consistent with fatty infiltration. The bile ducts are within normal limits. There is hepatic color flow. The direction of portal flow is hepatopetal. There is no demonstrated mass lesion. Gallbladder: Distended gallbladder. The gallbladder wall measures 2.5 mm. There is a negative sonographic Ayala''s sign. There is no pericholecystic fluid. There are no gallstones. Common Bile Duct (C.B.D.): The common bile duct measures 3.6 mm. Pancreas: There is nonvisualization of the pancreas. Right Kidney: Normal size of the right kidney. The right kidney measures 13.6 x 5.7 x 5.4 cm. Normal renal cortex. The right cortex measures 2.0 cm. There is no demonstrated renal mass or cyst. There is no right hydronephrosis. US/Liver IMPRESSION: Hepatomegaly with diffuse fatty infiltration of the liver, no discrete lesion Distended gallbladder, but no sonographic evidence of acute gallbladder disease. Sonographically normal right kidney Limited study Electronically Signed: Gerald Reyna MD at 11:36 EDT ,
--- NOTE | 2022-12-21 07:09 | EX.PCM.CONCC ---
Assessment & Plan Assessment/Plan (1) Acute on chronic respiratory failure with hypoxia and hypercapnia: (2) Acute on chronic combined systolic and diastolic heart failure: (3) Hyperammonemia: PLAN: Plan RECOMMENDATIONS: 1. Await morning labs 2. Continue BiPAP with sleep 3. Consider weaning gabapentin 4. Aggressive diuresis 5. Replete electrolytes as necessary IMPRESSIONS: 1. Metabolic encephalopathy versus toxic encephalopathy Unclear etiology. Patient appears to be resolved at this time. This may be a manifestation of multiple etiologies including sleep apnea, questionable compliance to BiPAP therapy, medications, CO2 retention in the setting of unclear renal function. Patient will require BiPAP with sleep at a minimum. Could evaluate on discontinuation to decreasing Risperdal and baclofen. 2. Acute on chronic combined respiratory failure Unclear etiology. Patient reportedly has a history of smoking and does have an element of CO2 retention at baseline. Unclear if this is related to obesity hypoventilation, but patient has required supplemental oxygen to maintain saturations. Patient currently has an increased AA gradient, but this may be secondary to problem #3. Patient likely has an element of pulmonary hypertension and an echocardiogram has been ordered. Patient with very poor insight into her overall condition. Do not believe patient requires any steroids or antibiotics at this time. 3. Acute on chronic combined CHF Patient with elevated BNP on presentation. Echocardiogram has been ordered for an evaluation. Patient with minimal elevation in troponin despite chronic kidney disease and hypoxia requiring supplemental oxygen. Patient would be at risk for diastolic dysfunction given her multiple comorbidities. 4. Morbid obesity/CKD/diabetes mellitus/hypertension/deconditioning/poor history Complicates care, management, recovery and prognosis. Patient is a very poor historian and unable to provide much additional information. Patient reportedly has been in multiple medical facilities recently, but is not able to describe surrounding circumstances. Patient reportedly is trying to rehab from a hospitalization. Continue with aggressive control of blood sugars. Patient appears to be resolved from her acute kidney injury, but nephrology has been consulted. Unclear if dialysis catheter should be removed as this does pose a risk for bloodstream infection. HPI Consult Data Date of Consult: 12/21/22 HPI Narrative HPI Narrative: CELESTE MOLINA is a 57 F, with past medical history listed below, who presents to [facility] from a local group home on 12/20/2022 secondary to decreased mental status. Patient reportedly was unable to be aroused, so EMS was called. Patient had become more edematous over the last couple of days per group home staff. Minimal additional information was available at that time. In the ER, patient was afebrile, but tachycardic at 103 bpm. Patient was normotensive, but requiring 2 L nasal cannula to maintain saturations. Patient had an ABG showing CO2 retention, so BiPAP was initiated. Laboratory data showed a white blood cell count of 10.8, hemoglobin of 7.3 and platelets of 447. Coagulation studies were within normal limits. Chemistry showed an elevated bicarbonate of 29, BUN of 43 and creatinine of 1.76. Patient's glucose was elevated at 154. Lactate was within normal limits. Patient did have a BNP of 664 and an ammonia of 53. CT of the head was unremarkable and a chest x-ray was consistent with CHF. Patient was given lactulose rectally and admitted to the intensive care unit for further evaluation. Since being in the intensive care unit, patient's mentation has significantly improved. Patient is interacting appropriately. Patient is reporting a cough and has requested some cough medication. Patient states that she had not slept in days and had taken a sleeping pill and felt that this was the reason for her decreased responsiveness. Patient is a relatively poor historian, but reports that she has not been transported from facility to facility. Patient is not able to tell me why she was transported to [facility]. Patient reportedly had requested transfer to [place] as this is closer to her family. Patient reportedly does have a history of obstructive sleep apnea, but states that her BiPAP was in storage during her multiple hospitalizations and she believes that is gone. Patient has reported a history of COPD, but is unclear if she has ever had breathing test. Patient does state that she has had significant weight loss since her sleep study showed that she needed therapy for sleep apnea. Patient believes that she has been using her BiPAP. Patient is unaware of any recent bleeding. Patient had refused morning labs initially. Patient was able to be talked into morning labs after my evaluation. Review of systems otherwise negative from a constitutional, HEENT, respiratory, cardiovascular, GI, genitourinary, musculoskeletal, skin, neurologic, psychiatric and hematologic system unless stated above. [facility] Medical History Anemia Anuria and oliguria Asthma CHF (congestive heart failure) Chronic diastolic (congestive) heart failure COPD (chronic obstructive pulmonary disease) Depression Diabetes mellitus, type 2 Diabetic neuropathy Gastric ulcer GERD (gastroesophageal reflux disease) HTN (hypertension) Hyperlipidemia Hypertensive heart and chronic kidney disease Muscle weakness Pulmonary edema Stage 3b chronic kidney disease (CKD) Home Medications aspirin 81 mg tablet,delayed release 81 mg PO DAILY HEART HEALTH 12/20/22 [History Last Taken 12/19/22] atorvastatin 20 mg tablet 20 mg PO QHS CHOLESTEROL 12/20/22 [History Last Taken 12/19/22] cyclobenzaprine 10 mg tablet 10 mg PO BID MUSCLE SPASMS 12/20/22 [History Last Taken 12/19/22] diclofenac sodium 1 % topical gel 1 ea topical BID PAIN 12/20/22 [History Last Taken 12/19/22] famotidine 20 mg tablet 20 mg PO DAILY ACID REFLUX 12/20/22 [History Last Taken 12/19/22] fluticasone 113 mcg-salmeterol 14 mcg/actuation breath activated powdr 1 inh inhalation BID SHORTNESS OF BREATH 12/20/22 [History Last Taken 12/19/22] gabapentin 300 mg capsule 300 mg PO BID NERVE PAIN 12/20/22 [History Last Taken 12/19/22] hydralazine 50 mg tablet 50 mg PO TID BLOOD PRESSURE 12/20/22 [History Last Taken 12/19/22] insulin glargine 100 unit/mL subcutaneous solution 28 unit subcut BID DIABETES 12/20/22 [History Last Taken 12/19/22] insulin lispro 100 unit/mL subcutaneous pen 20 unit subcut TIDCM DIABETES 12/20/22 [History Last Taken 12/19/22] isosorbide dinitrate 10 mg tablet 10 mg PO TID BLOOD PRESSURE 12/20/22 [History Last Taken 12/19/22] lidocaine 4 % topical patch (Lidocaine Pain Relief) 2 patch topical BID RIGHT SHOULDER/ARM PAIN 12/20/22 [History Last Taken 12/19/22] melatonin 3 mg tablet 3 mg PO QHS PRN Insomnia 12/20/22 [History Last Taken 12/19/22] metoprolol succinate 50 mg tablet,extended release 24 hr 50 mg PO DAILY BLOOD PRESSURE 12/20/22 [History Last Taken 12/19/22] montelukast 10 mg tablet 10 mg PO QHS ALLERGIES 12/20/22 [History Last Taken 12/19/22] multivitamin 1 tab PO DAILY HEALTH MAINTENANCE 12/20/22 [History Last Taken 12/19/22] polyethylene glycol 3350 17 gram oral powder packet 17 g PO DAILY CONSTIPATION 12/20/22 [History Last Taken 12/19/22] risperidone 0.25 mg tablet 0.25 mg PO DAILY DEPRESSION 12/20/22 [History Last Taken 12/19/22] risperidone 0.5 mg tablet (Risperdal) 0.5 mg PO QHS DEPRESSION 12/20/22 [History Last Taken 12/19/22] risperidone 1 mg tablet (Risperdal) 1 mg PO DAILY DEPRESSION 12/20/22 [History Last Taken 12/19/22] sennosides 8.6 mg tablet (senna) 17.2 mg PO DAILY CONSTIPATION 12/20/22 [History Last Taken 12/19/22] sodium bicarbonate 650 mg tablet 650 mg PO TID ACID REFLUX 12/20/22 [History Last Taken 12/19/22] sucralfate 1 gram tablet 1 g PO TID ULCERS 12/20/22 [History Last Taken 12/19/22] torsemide 20 mg tablet 20 mg PO BID FLUID 12/20/22 [History Last Taken 12/19/22] tramadol 50 mg tablet 50 mg PO BID PRN PAIN 12/20/22 [History Last Taken 12/19/22] Allergy/AdvReac Type Severity Reaction Status Date / Time No Known Allergies Allergy Verified 12/20/22 10:29 Surgical History S/P dialysis catheter insertion Social History Smoking Status: Unknown if ever smoked ROS ROS Narrative See HPI Physical Exam Const alert, oriented x3 and no apparent distress Constitutional Narrative: No conversational dyspnea. Morbidly obese. General Appearance: cooperative HEENT normocephalic and head/scalp atraumatic HEENT Narrative: No scleral icterus or injection noted Eyes PERRL, EOMs intact bilaterally and conjunctivae normal Neck full ROM and no lymphadenopathy Neck Narrative: Unable to assess JVD secondary to body habitus Chest inspection of chest normal Resp normal respiratory effort Effort and Inspection: able to speak in complete sentences Auscultation: diminished lung sounds diffuse (Secondary to body habitus); Negative for rales, rhonchi or wheezes Cardio regular rate, regular rhythm, S1 normal heart sound, S2 normal heart sound, no murmurs, no rub and no gallops GI normal to inspection, nondistended, normoactive bowel sounds Extremity Extremity Narrative: Good cap refill General Extremity: edema Skin Skin Narrative: Yeast noted in patient folds Neuro oriented x3, CN's II-XII intact bilaterally, moves all extremities and no focal motor deficits Psych cooperative and affect normal Medical Records Data Attestation: I reviewed the patient's medical records Lab / Micro Data Attestation: I reviewed the patient's lab results. Result Diagrams: 12/20/22 10:29 12/20/22 10:29 Labs: Laboratory Results - last 24 hr 12/20/22 10:29: WBC 10.8, RBC 3.21 L, Hgb 7.3 L, Hct 26.0 L, MCV 81.0, MCH 22.7 L, MCHC 28.1 L, RDW Std Deviation 51.5 H, RDW Coeff of Abbe 17.5 H, Plt Count 447, MPV 9.4, Immature Gran % (Auto) 0.600, Neut % (Auto) 58.0, Lymph % (Auto) 28.2, [place] % (Auto) 11.8 H, Eos % (Auto) 1.0, Baso % (Auto) 0.4, Absolute Neuts (auto) 6.3, Absolute Lymphs (auto) 3.05, Nucleated RBC % 0 12/20/22 10:29: PT 14.2, INR 1.1, APTT 35.2 12/20/22 10:29: Sodium 140, Potassium 4.6, Chloride 104, Carbon Dioxide 29.0, Anion Gap 7, BUN 43 H, Creatinine 1.76 H, Estim Creat Clear Calc 32.50, Est GFR (MDRD) Af Amer 39 L, Est GFR (MDRD) Non-Af 32 L, BUN/Creatinine Ratio 24.4 H, Glucose 154 H, Calcium 8.6, Total Bilirubin 0.10 L, AST 22, ALT 16, Alkaline Phosphatase 81, Total Protein 7.0, Albumin 2.8 L, Globulin 4.2, Albumin/Globulin Ratio 0.7 L 12/20/22 10:29: B-Natriuretic Peptide 664.4 H 12/20/22 10:29: Lactic Acid 0.7 12/20/22 10:29: Ammonia 53.0 H 12/20/22 10:29: Phosphorus 5.5 H, Magnesium 2.4, Total Creatine Kinase 77, Troponin I High Sens 260 H* 12/20/22 15:35: COVID-19 (NAVID) Not Detected 12/20/22 16:58: POC Glucose 117 H Micro: Microbiology 12/20/22 17:05 Mucosa - Nasopharyngeal Respiratory Panel (PCR) - Final 12/20/22 11:18 Nasal Secretion SARS-CoV-2 & FLU Antigen (Rapid) - Final ABG Data ABG results: ABG 12/20/22 11:48 Specimen Type ART Sample Site L Radial pH 7.27 L Bicarbonate Actual 29.6 H Total CO2 32 Base Excess 3 H O2 Saturation 91 L ABG pCO2 64.3 H ABG pO2 70 L Bill Test Positive O2 Delivery Device Cannula Liter Flow 2.0 Attestation: I personally reviewed and interpreted this ABG as follows: (Partially compensated chronic respiratory acidosis with increased AA gradient) Radiology Impression Brain CT 12/20/22 11:07 IMPRESSION: Normal unenhanced CT scan of the brain. Electronically Signed: Jared Walsh MD at 12:22 EDT , Chest X-Ray 12/20/22 11:07 IMPRESSION: CHF Electronically Signed: Jared Walsh MD at 13:24 EDT , Charges/Coding Visit Charges Inpatient E&M: 90744 Init Hosp L3
[2022-12-21 08:01] LABS: Absolute Lymphocyte Count 0.88 X10^3/uL (0.83-4.51); Absolute Neutrophil Count 6.9 X10^3/uL (2.0-7.7); Basophil# 0.02 X10^3/uL; Basophil% 0.3 % (0-1); Hematocrit 26.7 % (37-47); Hemoglobin 7.6 g/dL (12.0-15.0); Lymphocyte # 0.88 X10^3/ul (0.83-4.51); Mean Corp Hgb Conc 28.5 g/dL (32-36); Mean Corpuscular Hgb 22.8 pg (27.0-32.0); Mean Corpuscular Volume 79.9 fL (81-99); Mean Platelet Vol. 9.4 fl (6.2-12.0); Monocyte# 0.09 X10^3/uL; Monocyte% 1.1 % (0-10); NRBC Flagged by Analyzer 0 % (0-5); Neutrophil # 6.86 X10^3/uL (2.7-7.7); Neutrophil % 86.1 % (47-70); Platelet Count 441 K/mm3 (150-450); RBC Distribution Width CV 17.1 % (11.6-14.6); Red Blood Count 3.34 M/mm3 (4.2-5.4)
[2022-12-21 08:30] LABS: Troponin-I HS 168 pg/mL (3.0-54.0)
[2022-12-21 08:33] LABS: Anion Gap 9 (5-15); BUN 43 mg/dL (7-18); BUN/Creat Ratio 33.3 RATIO (10-20); Calcium,Total 8.5 mg/dL (8.5-10.1); Chloride 104 mmol/L (98-107); Cholesterol 119 mg/dL (200); Creatinine, Serum 1.29 mg/dL (0.55-1.02); EST Glomerular Filtration Rate 46 mL/min (>60); Est Glom Filt Rate - Afr Amer 55 mL/min (>60); Estimated Creatinine Clearance 46.13 ml/min; Glucose 299 mg/dL (74-106); High Density Lipoprotein 33 mg/dL; Potassium 4.3 mmol/L (3.5-5.1); Sodium Level 140 mmol/L (136-145); Thyroid Stim Hormone (TSH) 0.53 uIU/mL (0.358-3.74); Triglycerides 117 mg/dL; Very Low Density Lipoprotein 23 mg/dL (5-40)
--- NOTE | 2022-12-21 09:14 | VDUE_ITS ---
Reason For Study: Swelling RUE Right Proximal Right jugular vein is spontaneous, widely patent, phasic, with no intraluminal echogenicity noted. Right subclavian vein is spontaneous, widely patent, phasic, with no intraluminal echogenicity noted. Right Lower Arm Right radial vein is compressible. Right ulnar vein is compressible. Right Arm Right axillary vein is spontaneous, patent, phasic, competent, compressible and demonstrates augmentation. Right brachial vein is compressible. Rt CephalicV at elbow is NON COMPRESSIBLE consistent with acute SVT, compressible in upper arm. Right basilic vein is compressible. Patient Safety Prelim given to Kandice RN, Divya RN. VL/Venous Duplex US, Unilateral Interpretation Summary Acute superficial vein thrombosis noted in the right cephalic vein. Ordering Physician: Nikkie Alcazar Referring Physician: Lexus Vieira Performed By: Cassie Marinelli, NIMA, RVT ???
--- NOTE | 2022-12-21 09:35 | RAD_ITS ---
STUDY: X-RAY - RIGHT SHOULDER REASON FOR EXAM: Female, 57 years old. Pain TECHNIQUE: 3 view(s) of the shoulder. COMPARISON: None. FINDINGS: Anterior inferior dislocation of the humeral head relative to the glenoid. There is associated soft tissue swelling. Follow-up recommended to ensure anatomic alignment after reduction. There is subtle widening of the acromioclavicular joint with the clavicle being displaced inferiorly by one half width of the clavicle relative to the acromion suggesting subluxation here. No demonstrated fracture of the proximal humerus. The soft tissue structures are unremarkable. No upper rib fracture or pneumothorax RAD/Shoulder min 2 Views IMPRESSION: Anterior-inferior dislocation of the humeral head relative to the glenoid, follow-up recommended to ensure anatomic alignment after reduction Subluxation of the acromioclavicular joint with widening of the AC joint and inferior displacement of the clavicle relative to the acromion by one half width of the clavicle. Electronically Signed: Gerald Reyna MD at 11:20 EDT ,
--- NOTE | 2022-12-21 09:41 | CASEMGMT ---
[facility] and left a message requesting a return call. HEMA sent updates to [facility]. Marlys BEYER
[2022-12-21] MEDS: Furosemide 40 MG/4 ML Vial IV ×2 (09:47→17:09)
--- NOTE | 2022-12-21 09:58 | NURSING ---
This nurse and JIMMY Goodman attempted to straighten out linens underneath patient. Roselle though patient refused to turn again. When this nurse informed patient that the wrinkles underneath her could cause skin breakdown, patient stated its not bothering me none. This nurse told patient yes or no do you want us to fix her sheets underneath her? Patient stated she needs to make a phone call and will have an answer after. Staff left the room.
--- NOTE | 2022-12-21 10:49 | PCM.CONS.R ---
Assessment & Plan Assessment/Plan (1) Congestive heart failure: (2) JONATHAN (acute kidney injury): PLAN: No prior kidney disease. She was admitted at [facility] with acute renal failure due to ATN/cardiorenal syndrome.. Other past medical history significant for history of cocaine use, congestive heart failure with low ejection fraction, COPD, morbid obesity. Creatinine is now down to 1.3. Has not received dialysis in more than 10 days as per her. Good urine output. Do not think she needs dialysis anymore. She still has a right IJ tunneled dialysis catheter. This can be removed when okay with primary service. Congestive heart failure. With low ejection fraction as per previous records. Continue IV Lasix 40 mg twice daily. As per records, she had hematuria, proteinuria on urine analysis. Will reevaluate urine once Pastrana catheter comes out. HPI Consult Data Date of Consult: 12/21/22 HPI Narrative Reason for Consultation: Acute renal failure HPI Narrative: CELESTE MOLINA, is a 57 F who presents to the hospital with altered mental status and shortness of breath. Nephrology on consultation due to history of acute renal failure. Reviewed records from outside hospital. It seems she was admitted at [facility] acute [facility] and now [facility]. She initially presented to the hospital with shortness of breath, was positive for metapneumovirus. Diagnosed with congestive heart failure with low ejection fraction of 35 to 40%, acute renal failure likely due to ATN. Required CRRT followed by dialysis. Eventually recovered renal function. Apparently has not received dialysis for almost 10 days now. Creatinine is down to 1.3 today. Urine output is good. Is currently alert and awake. She lives in [place], family lives in [place]. Hence she moved to [place] to stay in between. Breathing looks better. pastrana in with decent urine output. [facility] Medical History Anemia Anuria and oliguria Asthma CHF (congestive heart failure) Chronic diastolic (congestive) heart failure COPD (chronic obstructive pulmonary disease) Depression Diabetes mellitus, type 2 Diabetic neuropathy Gastric ulcer GERD (gastroesophageal reflux disease) HTN (hypertension) Hyperlipidemia Hypertensive heart and chronic kidney disease Muscle weakness Pulmonary edema Stage 3b chronic kidney disease (CKD) Home Medications aspirin 81 mg tablet,delayed release 81 mg PO DAILY HEART HEALTH 12/20/22 [History Last Taken 12/19/22] atorvastatin 20 mg tablet 20 mg PO QHS CHOLESTEROL 12/20/22 [History Last Taken 12/19/22] cyclobenzaprine 10 mg tablet 10 mg PO BID MUSCLE SPASMS 12/20/22 [History Last Taken 12/19/22] diclofenac sodium 1 % topical gel 1 ea topical BID PAIN 12/20/22 [History Last Taken 12/19/22] famotidine 20 mg tablet 20 mg PO DAILY ACID REFLUX 12/20/22 [History Last Taken 12/19/22] fluticasone 113 mcg-salmeterol 14 mcg/actuation breath activated powdr 1 inh inhalation BID SHORTNESS OF BREATH 12/20/22 [History Last Taken 12/19/22] gabapentin 300 mg capsule 300 mg PO BID NERVE PAIN 12/20/22 [History Last Taken 12/19/22] hydralazine 50 mg tablet 50 mg PO TID BLOOD PRESSURE 12/20/22 [History Last Taken 12/19/22] insulin glargine 100 unit/mL subcutaneous solution 28 unit subcut BID DIABETES 12/20/22 [History Last Taken 12/19/22] insulin lispro 100 unit/mL subcutaneous pen 20 unit subcut TIDCM DIABETES 12/20/22 [History Last Taken 12/19/22] isosorbide dinitrate 10 mg tablet 10 mg PO TID BLOOD PRESSURE 12/20/22 [History Last Taken 12/19/22] lidocaine 4 % topical patch (Lidocaine Pain Relief) 2 patch topical BID RIGHT SHOULDER/ARM PAIN 12/20/22 [History Last Taken 12/19/22] melatonin 3 mg tablet 3 mg PO QHS PRN Insomnia 12/20/22 [History Last Taken 12/19/22] metoprolol succinate 50 mg tablet,extended release 24 hr 50 mg PO DAILY BLOOD PRESSURE 12/20/22 [History Last Taken 12/19/22] montelukast 10 mg tablet 10 mg PO QHS ALLERGIES 12/20/22 [History Last Taken 12/19/22] multivitamin 1 tab PO DAILY HEALTH MAINTENANCE 12/20/22 [History Last Taken 12/19/22] polyethylene glycol 3350 17 gram oral powder packet 17 g PO DAILY CONSTIPATION 12/20/22 [History Last Taken 12/19/22] risperidone 0.25 mg tablet 0.25 mg PO DAILY DEPRESSION 12/20/22 [History Last Taken 12/19/22] risperidone 0.5 mg tablet (Risperdal) 0.5 mg PO QHS DEPRESSION 12/20/22 [History Last Taken 12/19/22] risperidone 1 mg tablet (Risperdal) 1 mg PO DAILY DEPRESSION 12/20/22 [History Last Taken 12/19/22] sennosides 8.6 mg tablet (senna) 17.2 mg PO DAILY CONSTIPATION 12/20/22 [History Last Taken 12/19/22] sodium bicarbonate 650 mg tablet 650 mg PO TID ACID REFLUX 12/20/22 [History Last Taken 12/19/22] sucralfate 1 gram tablet 1 g PO TID ULCERS 12/20/22 [History Last Taken 12/19/22] torsemide 20 mg tablet 20 mg PO BID FLUID 12/20/22 [History Last Taken 12/19/22] tramadol 50 mg tablet 50 mg PO BID PRN PAIN 12/20/22 [History Last Taken 12/19/22] Allergy/AdvReac Type Severity Reaction Status Date / Time No Known Allergies Allergy Verified 12/20/22 10:29 Surgical History S/P dialysis catheter insertion Social History Smoking Status: Unknown if ever smoked ROS ROS Narrative Negative except above Physical Exam Narrative Alert awake oriented x 3 no obvious distress no pallor no icterus no JVD s1s2 no murmurs lungs clear abdomen soft no organomegaly no edema no cyanosis pastrana + Lab / Micro Data Result Diagrams: 12/21/22 07:50 12/21/22 07:50 Labs: Laboratory Results - last 24 hr 12/20/22 10:29: WBC 10.8, RBC 3.21 L, Hgb 7.3 L, Hct 26.0 L, MCV 81.0, MCH 22.7 L, MCHC 28.1 L, RDW Std Deviation 51.5 H, RDW Coeff of Abbe 17.5 H, Plt Count 447, MPV 9.4, Immature Gran % (Auto) 0.600, Neut % (Auto) 58.0, Lymph % (Auto) 28.2, [place] % (Auto) 11.8 H, Eos % (Auto) 1.0, Baso % (Auto) 0.4, Absolute Neuts (auto) 6.3, Absolute Lymphs (auto) 3.05, Nucleated RBC % 0 12/20/22 10:29: PT 14.2, INR 1.1, APTT 35.2 12/20/22 10:29: Sodium 140, Potassium 4.6, Chloride 104, Carbon Dioxide 29.0, Anion Gap 7, BUN 43 H, Creatinine 1.76 H, Estim Creat Clear Calc 32.50, Est GFR (MDRD) Af Amer 39 L, Est GFR (MDRD) Non-Af 32 L, BUN/Creatinine Ratio 24.4 H, Glucose 154 H, Calcium 8.6, Total Bilirubin 0.10 L, AST 22, ALT 16, Alkaline Phosphatase 81, Total Protein 7.0, Albumin 2.8 L, Globulin 4.2, Albumin/Globulin Ratio 0.7 L 12/20/22 10:29: B-Natriuretic Peptide 664.4 H 12/20/22 10:29: Lactic Acid 0.7 12/20/22 10:29: Ammonia 53.0 H 12/20/22 10:29: Phosphorus 5.5 H, Magnesium 2.4, Total Creatine Kinase 77, Troponin I High Sens 260 H* 12/20/22 15:35: COVID-19 (NAVID) Not Detected 12/20/22 16:58: POC Glucose 117 H 12/21/22 07:50: WBC 8.0, RBC 3.34 L, Hgb 7.6 L, Hct 26.7 L, MCV 79.9 L, MCH 22.8 L, MCHC 28.5 L, RDW Std Deviation 50.0 H, RDW Coeff of Abbe 17.1 H, Plt Count 441, MPV 9.4, Immature Gran % (Auto) 1.500 H, Neut % (Auto) 86.1 H, Lymph % (Auto) 11.0 L, [place] % (Auto) 1.1, Eos % (Auto) 0.0, Baso % (Auto) 0.3, Absolute Neuts (auto) 6.9, Absolute Lymphs (auto) 0.88, Nucleated RBC % 0 12/21/22 07:50: Sodium 140, Potassium 4.3, Chloride 104, Carbon Dioxide 27.0, Anion Gap 9, BUN 43 H, Creatinine 1.29 H, Estim Creat Clear Calc 46.13, Est GFR (MDRD) Af Amer 55 L, Est GFR (MDRD) Non-Af 46 L, BUN/Creatinine Ratio 33.3 H, Glucose 299 H, Calcium 8.5, Triglycerides 117, Cholesterol 119, LDL Cholesterol 63, VLDL Cholesterol 23, HDL Cholesterol 33 L, TSH 0.53 12/21/22 07:50: Troponin I High Sens 168 H* Micro: Microbiology 12/20/22 17:05 Mucosa - Nasopharyngeal Respiratory Panel (PCR) - Final 12/20/22 11:18 Nasal Secretion SARS-CoV-2 & FLU Antigen (Rapid) - Final ABG Data ABG results: ABG 12/20/22 11:48 Specimen Type ART Sample Site L Radial pH 7.27 L Bicarbonate Actual 29.6 H Total CO2 32 Base Excess 3 H O2 Saturation 91 L ABG pCO2 64.3 H ABG pO2 70 L Bill Test Positive O2 Delivery Device Cannula Liter Flow 2.[address] 12/20/22 11:07 IMPRESSION: Normal unenhanced CT scan of the brain. Electronically Signed: Jared Walsh MD at 12:22 EDT , Chest X-Ray 12/20/22 11:07 IMPRESSION: CHF Electronically Signed: Jared Walsh MD at 13:24 EDT ,
--- NOTE | 2022-12-21 10:57 | CASEMGMT ---
Mali from [facility] called SW back. Patient has not received dialysis as she is renally recovered. Patient normally gets around via wheelchair. Patient requires assist to get in and out of wheelchair. SW notified BOUBACAR Schafer in ICU. Marlys Rodriguez ENTERPRISE SYSTEMS MANAGERMarc BEYER
[2022-12-21] MEDS: Lactulose 20 GM/30 ML UDC PO (11:38)
[2022-12-21] MEDS: Aspirin E.C. 81 MG Tablet PO (11:38)
--- NOTE | 2022-12-21 12:00 | NURSING ---
Patient requesting to get out of bed to the chair. This RN informed her that therapy would be be in about 90 minutes. Patient did not want to wait on therapy. This RN, Quinton Rollins RN and Viola MARQUEZ attempted to get patient to the chair. Patient used zero effort to move, and was unable to stand safely despite gait belt and walker. This RN explained to patient that it was unsafe for her to attempt to get to the chair and we do not want her to fall. The patient became agitated with staff and started yelling. Patient stated at one time she did not care if she fell. This nurse continued to tell patient that it is not safe and she will have to stay in bed. Patient was on the edge of the bed and this RN advised patient she needed to try to scoot further into the bed. Patient unable to assist. Two other staff members came into patients room to assist. Patient safely moved further onto the bed and boosted up.
[2022-12-21 14:15] LABS: Platelet Count 445 K/mm3 (150-450); RET-HE 20.3 pg (30-35); Reticulocyte Count 1.65 % (0.5-1.5)
--- NOTE | 2022-12-21 14:20 | CASEMGMT ---
Mali from [facility] said patient was on bipap and the settings were: IPAP:10, EPAP:5 and FIO2:35%. SW met with patient. Introduced self and role at [facility]. SW asked patient if her plan was to return to [facility] when she is discharged. Patient went on to say how she was upset. SW listened and provided emotional support. Patient eventually did say her plan is to return to [facility]. SW gave bipap settings to RN. Marlys Rodriguez SENIOR LINUX UNIX ADMINISTRATORMarc BEYER
[2022-12-21 14:28] LABS: Ferritin 42 ng/mL (8-252); Iron 21 ug/dL (50-170); Iron Binding Capacity,Total 251 ug/dL (250-450); PERCENT IRON SATURATION 8.4 % (15.0-55.0)
--- NOTE | 2022-12-21 14:55 | CT_ITS ---
STUDY: CT RIGHT SHOULDER REASON FOR EXAM: Female, 57 years old. R shld pain RADIATION DOSAGE (If Supplied By Facility): CTDIvol = ( 68.76 ) mGy, DLP = ( 1808.52 ) mGycm TECHNIQUE: The patient was scanned in a multi detector CT scanner. High resolution transaxial imaging was performed without the administration of intravenous contrast material. Sagittal and coronal images were reconstructed. Individualized dose optimization techniques were used for this CT. COMPARISON: Right shoulder x-ray December 21, 2022 FINDINGS: There is moderate osteoarthritis, with moderate articular joint space narrowing and moderate osteoarthritic spurring. Normal glenoid rim, neck and visualized scapula. Normal humeral head, neck and tuberosities. Normal coracoid process. There is age indeterminant well-corticated slightly angulated appearance of the distal right clavicle with posterior apex angulation without a definitive fracture line. There is typical appearing mild narrowing of the acromioclavicular joint with minimal osteophyte formation. There is a Type II morphology (curved), with a neutral orientation. There is a trace focus of fluid within the shoulder joint space. There is minimal adjacent edema. There is no visualized acute fracture. There is a right-sided central line with the tip in the superior vena cava. CT/Extremity Upper without Contra IMPRESSION: There is a slightly low-lying appearance of the humeral head relative to the glenoid within the joint space with moderate narrowing and probable joint effusion. There is no visualized acute fracture. There is no visualized acromioclavicular separation. There is slight angulation of the distal clavicle. Well-corticated border suggesting possible prior injury. Allowing for patient''s condition if pain persists recommend consideration for MRI. Electronically Signed: Tiffany Anderson MD at 15:50 EDT Reading Location ID and State: [facility] / [place] Tel , Service support ,
[2022-12-21] MEDS: Nystatin Powder 15gm Bottle 1 APPLIC TOPICAL ×2 (15:41→20:34)
[2022-12-21] MEDS: Menthol/Lanolin/Calamine/Znox 113 GM Tube 1 APPLIC TOPICAL ×2 (15:41→20:32)
[2022-12-21] MEDS: Sucralfate 1 GM Tablet PO (17:09)
[2022-12-21] MEDS: Famotidine 20 MG Tablet PO (17:09)
[2022-12-21] MEDS: Insulin Lispro 100 UNIT/ML INSULN.PEN 20 UNIT SC (18:16)
[2022-12-21 18:20] LABS: Bedside Glucose 300 mg/dL (74-106)
[2022-12-21] MEDS: hydrALAZINE 50 MG Tablet PO (20:31)
[2022-12-21] MEDS: Insulin Glargine-YFGN 100 UNIT/ML Pen 28 UNIT SC (20:32)
[2022-12-21] MEDS: Atorvastatin Calcium 40 MG Tablet PO (20:33)
[2022-12-21] MEDS: Lidocaine 5% Patch 2 PATCH TOPICAL (20:33)
[2022-12-21] MEDS: Isosorbide DN 10 MG Tablet PO (20:33)
[2022-12-21] MEDS: Sodium Bicarbonate 650 MG Tablet PO (20:34)
[2022-12-21] MEDS: Gabapentin 300 MG Capsule PO (20:34)
[2022-12-21] MEDS: RisperiDONE 0.5 MG Tablet PO (20:34)
[2022-12-21] MEDS: Montelukast 10 MG Tablet PO (20:34)
[2022-12-21] MEDS: 0.9% Saline Lock 10 ML Syringe IV (20:35)
[2022-12-21 21:25] LABS: Bedside Glucose 334 mg/dL (74-106)
[2022-12-22] VITALS (17 sets, daily range): BP systolic 121–153; BP diastolic 59–95; PULSE 85–100; RESP 12–26; TEMP 36.4–37; O2SAT 91–99; BMI 58.7
[2022-12-22] MEDS: Ipratropium/Albuterol Sulfate 3 ML AMPUL.NEB INHALATION ×3 (02:34→11:35)
[2022-12-22] MEDS: hydrALAZINE 50 MG Tablet PO (04:56)
[2022-12-22] MEDS: Sodium Bicarbonate 650 MG Tablet PO (04:56)
[2022-12-22] MEDS: Menthol/Lanolin/Calamine/Znox 113 GM Tube 1 APPLIC TOPICAL (04:56)
[2022-12-22] MEDS: Isosorbide DN 10 MG Tablet PO (04:56)
[2022-12-22] MEDS: Nystatin Powder 15gm Bottle 1 APPLIC TOPICAL (04:56)
[2022-12-22 05:26] LABS: Absolute Lymphocyte Count 1.01 X10^3/uL (0.83-4.51); Absolute Neutrophil Count 6.1 X10^3/uL (2.0-7.7); Basophil# 0.01 X10^3/uL; Basophil% 0.1 % (0-1); Hematocrit 25.1 % (37-47); Hemoglobin 7.2 g/dL (12.0-15.0); Lymphocyte # 1.01 X10^3/ul (0.83-4.51); Lymphocyte % 13.4 % (19-41); Mean Corp Hgb Conc 28.7 g/dL (32-36); Mean Corpuscular Volume 80.2 fL (81-99); Mean Platelet Vol. 9.7 fl (6.2-12.0); Monocyte% 5.3 % (0-10); NRBC Flagged by Analyzer 0 % (0-5); Neutrophil # 6.08 X10^3/uL (2.7-7.7); Neutrophil % 80.4 % (47-70); Platelet Count 402 K/mm3 (150-450); RBC Distribution Width CV 17.2 % (11.6-14.6); RBC Distribution Width SD 50.3 fl (35.1-43.9); Red Blood Count 3.13 M/mm3 (4.2-5.4); White Blood Count 7.6 K/mm3 (4.4-11.0)
[2022-12-22 05:40] LABS: Anion Gap 8 (5-15); BUN 41 mg/dL (7-18); BUN/Creat Ratio 34.2 RATIO (10-20); Calcium,Total 8.5 mg/dL (8.5-10.1); Chloride 102 mmol/L (98-107); EST Glomerular Filtration Rate 49 mL/min (>60); Est Glom Filt Rate - Afr Amer 60 mL/min (>60); Estimated Creatinine Clearance 49.59 ml/min; Glucose 393 mg/dL (74-106); Potassium 4.1 mmol/L (3.5-5.1); Sodium Level 136 mmol/L (136-145)
[2022-12-22] MEDS: Sucralfate 1 GM Tablet PO (06:18)
--- NOTE | 2022-12-22 07:05 | PCM.PN.INT ---
Assessment & Plan Assessment/Plan (1) Acute on chronic respiratory failure with hypoxia and hypercapnia: (2) Acute on chronic combined systolic and diastolic heart failure: (3) Hyperammonemia: PLAN: Plan RECOMMENDATIONS: 1. Removal of tunneled hemodialysis line later today 2. Continue BiPAP with sleep 3. Consider weaning gabapentin 4. Continue diuresis 5. Okay to go back to ECF from my perspective IMPRESSIONS: 1. Metabolic encephalopathy versus toxic encephalopathy Unclear etiology, but patient appears to be resolved at this time. This may be a manifestation of multiple etiologies including sleep apnea, questionable compliance to BiPAP therapy, medications, CO2 retention in the setting of unclear renal function. Patient will require BiPAP with sleep at a minimum. Could evaluate decreasing Risperdal 2. Acute on chronic combined respiratory failure Unclear etiology. Patient reportedly has a history of smoking and does have an element of CO2 retention at baseline. Unclear if this is related to obesity hypoventilation, but patient has required supplemental oxygen to maintain saturations. Patient currently has an increased AA gradient, but this may be secondary to problem #3. Patient likely has an element of pulmonary hypertension and echocardiogram confirms systolic dysfunction. Patient with very poor insight into her overall condition. Do not believe patient requires any steroids or antibiotics at this time. 3. Acute on chronic combined CHF Patient with elevated BNP on presentation. Echocardiogram has confirmed combined dysfunction. Patient with minimal elevation in troponin despite chronic kidney disease and hypoxia requiring supplemental oxygen. Patient would be at risk for diastolic dysfunction given her multiple comorbidities. 4. Morbid obesity/CKD/diabetes mellitus/hypertension/deconditioning/poor history Complicates care, management, recovery and prognosis. Patient is a very poor historian and unable to provide much additional information. Patient reportedly has been in multiple medical facilities recently, but is not able to describe surrounding circumstances. Patient reportedly is trying to rehab from a hospitalization. Continue with aggressive control of blood sugars by increasing Lantus. Patient appears to be resolved from her acute kidney injury, but nephrology has been consulted. Unclear if dialysis catheter should be removed as this does pose a risk for bloodstream infection. Subjective Subjective Patient has done well overnight. Patient's mentation has been consistently at baseline. Patient's oxygen status is much improved compared to presentation and she is currently on her baseline. Patient is not complaining of any respiratory complaints. No fevers or chills were noted overnight Objective Data Objective Data Vital Signs: Vital Signs Temp Pulse Resp BP Pulse Ox O2 Del Method O2 Flow Rate 36.8 C 100 23 H 136/90 H 99 Nasal Cannula 3 12/22/22 06:00 12/22/22 07:00 12/22/22 07:00 12/22/22 07:00 12/22/22 07:00 12/22/22 07:00 12/22/22 07:00 FiO2 30 12/22/22 03:10 Oxygen Flow Rate (L/min) 3 Oxygen Delivery Method Nasal Cannula Weight: 165.7 kg Body Mass Index (BMI) 58.7 Intake & Output: Intake and Output for Last 24 Hours 12/20/22 12/21/22 12/22/22 23:59 23:59 23:59 Intake Total 50.25 / 50.25 993 / 993 500 / 500 Output Total 1200 / 1200 3200 / 3200 750 / 750 Balance -1149.75 / -1149.75 -2207 / -2207 -250 / -250 Lab / Micro Data Attestation: I reviewed the patient's lab results. Result Diagrams: 12/22/22 04:40 12/22/22 04:40 Labs: Laboratory Results - last 24 hr 12/21/22 07:50: WBC 8.0, RBC 3.34 L, Hgb 7.6 L, Hct 26.7 L, MCV 79.9 L, MCH 22.8 L, MCHC 28.5 L, RDW Std Deviation 50.0 H, RDW Coeff of Abbe 17.1 H, Plt Count 441, MPV 9.4, Immature Gran % (Auto) 1.500 H, Neut % (Auto) 86.1 H, Lymph % (Auto) 11.0 L, [place] % (Auto) 1.1, Eos % (Auto) 0.0, Baso % (Auto) 0.3, Absolute Neuts (auto) 6.9, Absolute Lymphs (auto) 0.88, Nucleated RBC % 0 12/21/22 07:50: Sodium 140, Potassium 4.3, Chloride 104, Carbon Dioxide 27.0, Anion Gap 9, BUN 43 H, Creatinine 1.29 H, Estim Creat Clear Calc 46.13, Est GFR (MDRD) Af Amer 55 L, Est GFR (MDRD) Non-Af 46 L, BUN/Creatinine Ratio 33.3 H, Glucose 299 H, Calcium 8.5, Triglycerides 117, Cholesterol 119, LDL Cholesterol 63, VLDL Cholesterol 23, HDL Cholesterol 33 L, TSH 0.53 12/21/22 07:50: Troponin I High Sens 168 H* 12/21/22 07:50: Retic Count 1.65 H, Immature Retic Fraction 37.10 H, Retic Hgb Equivalent 20.3 L 12/21/22 07:50: Iron 21 L, TIBC 251, Iron Saturation 8.4 L, Ferritin 42 12/21/22 18:02: POC Glucose 300 H 12/21/22 20:45: POC Glucose 334 H 12/22/22 04:40: WBC 7.6, RBC 3.13 L, Hgb 7.2 L, Hct 25.1 L, MCV 80.2 L, MCH 23.0 L, MCHC 28.7 L, RDW Std Deviation 50.3 H, RDW Coeff of Abbe 17.2 H, Plt Count 402, MPV 9.7, Immature Gran % (Auto) 0.800, Neut % (Auto) 80.4 H, Lymph % (Auto) 13.4 L, [place] % (Auto) 5.3, Eos % (Auto) 0.0, Baso % (Auto) 0.1, Absolute Neuts (auto) 6.1, Absolute Lymphs (auto) 1.01, Nucleated RBC % 0 12/22/22 04:40: Sodium 136, Potassium 4.1, Chloride 102, Carbon Dioxide 26.0, Anion Gap 8, BUN 41 H, Creatinine 1.20 H, Estim Creat Clear Calc 49.59, Est GFR (MDRD) Af Amer 60, Est GFR (MDRD) Non-Af 49 L, BUN/Creatinine Ratio 34.2 H, Glucose 393 H, Calcium 8.5 Micro: Microbiology 12/20/22 12:29 Blood Culture (Wb) - Left Forearm Blood Culture - Preliminary Coag Negative Staph 12/20/22 17:05 Mucosa - Nasopharyngeal Respiratory Panel (PCR) - Final 12/20/22 11:18 Nasal Secretion SARS-CoV-2 & FLU Antigen (Rapid) - Final Radiography Diagnostic Testing: Radiology Impression Echocardiogram 12/20/22 16:18 Interpretation Summary Normal left ventricle. The estimated ejection fraction is 45 %. There is mild to moderate global hypokinesis of the left ventricle. Mild concentric left ventricular hypertrophy. Pulmonary artery systolic pressure is 35 mmHg. Contrast injection was performed. Ordering Physician: Alexandr Cline Referring Physician: Isha Alberts Performed By: Racheal Garcia RDCS, RVT Liver Ultrasound 12/21/22 07:03 IMPRESSION: Hepatomegaly with diffuse fatty infiltration of the liver, no discrete lesion Distended gallbladder, but no sonographic evidence of acute gallbladder disease. Sonographically normal right kidney Limited study Electronically Signed: Gerald Reyna MD at 11:36 EDT , Venous Doppler Study 12/21/22 09:14 Interpretation Summary Acute superficial vein thrombosis noted in the right cephalic vein. Ordering Physician: Nikkie Alcazar Referring Physician: Lexus Vieira Performed By: Cassie Marinelli RDCS, RVT ??? Shoulder X-Ray 12/21/22 09:35 IMPRESSION: Anterior-inferior dislocation of the humeral head relative to the glenoid, follow-up recommended to ensure anatomic alignment after reduction Subluxation of the acromioclavicular joint with widening of the AC joint and inferior displacement of the clavicle relative to the acromion by one half width of the clavicle. Electronically Signed: Gerald Reyna MD at 11:20 EDT , Upper Extremity CT 12/21/22 14:55 IMPRESSION: There is a slightly low-lying appearance of the humeral head relative to the glenoid within the joint space with moderate narrowing and probable joint effusion. There is no visualized acute fracture. There is no visualized acromioclavicular separation. There is slight angulation of the distal clavicle. Well-corticated border suggesting possible prior injury. Allowing for patient''s condition if pain persists recommend consideration for MRI. Electronically Signed: Tiffany Anderson MD at 15:50 EDT , Physical Exam Const alert, oriented x3 and no apparent distress Constitutional Narrative: No conversational dyspnea. Morbidly obese. General Appearance: cooperative HEENT normocephalic and head/scalp atraumatic Eyes PERRL, EOMs intact bilaterally and conjunctivae normal Neck full ROM and no lymphadenopathy Neck Narrative: Unable to assess JVD secondary to body habitus Chest inspection of chest normal Resp normal respiratory effort Effort and Inspection: able to speak in complete sentences Auscultation: diminished lung sounds diffuse (Secondary to body habitus); Negative for rales, rhonchi or wheezes Cardio regular rate, regular rhythm, S1 normal heart sound, S2 normal heart sound, no murmurs, no rub and no gallops GI normal to inspection, nondistended, normoactive bowel sounds Extremity Extremity Narrative: Good cap refill General Extremity: edema Skin Skin Narrative: Yeast noted in patient folds Neuro oriented x3, CN's II-XII intact bilaterally, moves all extremities and no focal motor deficits Psych cooperative and affect normal Charges/Coding Visit Charges Inpatient E&M: 25878 Subs Hosp L2
--- NOTE | 2022-12-22 07:28 | EX.PCM.CON.S ---
Assessment & Plan Assessment/Plan (1) Encounter for dialysis catheter care: PLAN: Plan We will plan for removal of right IJ tunneled dialysis catheter as patient no longer requires this and it would be a source of infection. Discussed the procedure with patient and she was agreeable to proceed. Heparin has been held this morning. We will plan to come back in late morning for removal. Patient no further question this time. Karina García M.D. Pager: [phone] [facility] [address] [place] [address], [facility], [address] [place] [address] Office: [phone] HPI Consult Data Date of Consult: 12/22/22 HPI Narrative Reason for Consultation: Removal of tunneled dialysis catheter HPI Narrative: CELESTE MOLINA, is a 57 F who mended to ICU after being found unresponsive at shelter?[facility]. Patient is alert and oriented currently. Patient states she was sleeping due to her sleeping pills. Patient states last time she used her tunneled dialysis catheter was about 2 weeks ago. Patient is interested in having it removed. [facility] Medical History (Updated 12/22/22 @ 07:[address] Karina García MD) Anemia Anuria and oliguria Asthma CHF (congestive heart failure) Chronic diastolic (congestive) heart failure COPD (chronic obstructive pulmonary disease) Depression Diabetes mellitus, type 2 Diabetic neuropathy Gastric ulcer GERD (gastroesophageal reflux disease) HTN (hypertension) Hyperlipidemia Hypertensive heart and chronic kidney disease Morbid obesity Muscle weakness Pulmonary edema Stage 3b chronic kidney disease (CKD) Home Medications aspirin 81 mg tablet,delayed release 81 mg PO DAILY HEART HEALTH 12/20/22 [History Last Taken 12/19/22] atorvastatin 20 mg tablet 20 mg PO QHS CHOLESTEROL 12/20/22 [History Last Taken 12/19/22] cyclobenzaprine 10 mg tablet 10 mg PO BID MUSCLE SPASMS 12/20/22 [History Last Taken 12/19/22] diclofenac sodium 1 % topical gel 1 ea topical BID PAIN 12/20/22 [History Last Taken 12/19/22] famotidine 20 mg tablet 20 mg PO DAILY ACID REFLUX 12/20/22 [History Last Taken 12/19/22] fluticasone 113 mcg-salmeterol 14 mcg/actuation breath activated powdr 1 inh inhalation BID SHORTNESS OF BREATH 12/20/22 [History Last Taken 12/19/22] gabapentin 300 mg capsule 300 mg PO BID NERVE PAIN 12/20/22 [History Last Taken 12/19/22] hydralazine 50 mg tablet 50 mg PO TID BLOOD PRESSURE 12/20/22 [History Last Taken 12/19/22] insulin glargine 100 unit/mL subcutaneous solution 28 unit subcut BID DIABETES 12/20/22 [History Last Taken 12/19/22] insulin lispro 100 unit/mL subcutaneous pen 20 unit subcut TIDCM DIABETES 12/20/22 [History Last Taken 12/19/22] isosorbide dinitrate 10 mg tablet 10 mg PO TID BLOOD PRESSURE 12/20/22 [History Last Taken 12/19/22] lidocaine 4 % topical patch (Lidocaine Pain Relief) 2 patch topical BID RIGHT SHOULDER/ARM PAIN 12/20/22 [History Last Taken 12/19/22] melatonin 3 mg tablet 3 mg PO QHS PRN Insomnia 12/20/22 [History Last Taken 12/19/22] metoprolol succinate 50 mg tablet,extended release 24 hr 50 mg PO DAILY BLOOD PRESSURE 12/20/22 [History Last Taken 12/19/22] montelukast 10 mg tablet 10 mg PO QHS ALLERGIES 12/20/22 [History Last Taken 12/19/22] multivitamin 1 tab PO DAILY HEALTH MAINTENANCE 12/20/22 [History Last Taken 12/19/22] polyethylene glycol 3350 17 gram oral powder packet 17 g PO DAILY CONSTIPATION 12/20/22 [History Last Taken 12/19/22] risperidone 0.25 mg tablet 0.25 mg PO DAILY DEPRESSION 12/20/22 [History Last Taken 12/19/22] risperidone 0.5 mg tablet (Risperdal) 0.5 mg PO QHS DEPRESSION 12/20/22 [History Last Taken 12/19/22] risperidone 1 mg tablet (Risperdal) 1 mg PO DAILY DEPRESSION 12/20/22 [History Last Taken 12/19/22] sennosides 8.6 mg tablet (senna) 17.2 mg PO DAILY CONSTIPATION 12/20/22 [History Last Taken 12/19/22] sodium bicarbonate 650 mg tablet 650 mg PO TID ACID REFLUX 12/20/22 [History Last Taken 12/19/22] sucralfate 1 gram tablet 1 g PO TID ULCERS 12/20/22 [History Last Taken 12/19/22] torsemide 20 mg tablet 20 mg PO BID FLUID 12/20/22 [History Last Taken 12/19/22] tramadol 50 mg tablet 50 mg PO BID PRN PAIN 12/20/22 [History Last Taken 12/19/22] Allergy/AdvReac Type Severity Reaction Status Date / Time No Known Allergies Allergy Verified 12/20/22 10:29 Surgical History S/P dialysis catheter insertion Social History Smoking Status: Unknown if ever smoked ROS Constitutional Constitutional: Denies anorexia or fever(s) Eyes Eyes: Denies loss of central vision ENT HEENT: Denies dysphagia Cardiovascular Cardiovascular: Denies chest pain Respiratory/Chest Respiratory/Chest: Denies cough Gastrointestinal Gastrointestinal: Denies abdominal pain Genitourinary Genitourinary: Denies dysuria Integumentary Integumentary: Denies jaundice Neurologic Neurologic: Denies loss of vision Endocrine Endocrinology: Denies palpitations Hematologic/Lymphatic Hematologic/Lymphatic: Denies easy bleeding Physical Exam Const alert, oriented x3 and no apparent distress Nutritional Appearance: obese HEENT Head and Scalp: normal to inspection Chest Chest Narrative: Right IJ tunneled dialysis catheter in place no signs of infection Resp normal respiratory effort Cardio Rate: regular rate GI soft to palpation and non-tender Extremity Extremity Narrative: Swelling of the right hand Skin no rashes or lesions noted Neuro CN's II-XII intact bilaterally Psych affect normal Lab / Micro Data Result Diagrams: 12/22/22 04:40 12/22/22 04:40 Labs: Laboratory Results - last 24 hr 12/21/22 07:50: WBC 8.0, RBC 3.34 L, Hgb 7.6 L, Hct 26.7 L, MCV 79.9 L, MCH 22.8 L, MCHC 28.5 L, RDW Std Deviation 50.0 H, RDW Coeff of Abbe 17.1 H, Plt Count 441, MPV 9.4, Immature Gran % (Auto) 1.500 H, Neut % (Auto) 86.1 H, Lymph % (Auto) 11.0 L, [place] % (Auto) 1.1, Eos % (Auto) 0.0, Baso % (Auto) 0.3, Absolute Neuts (auto) 6.9, Absolute Lymphs (auto) 0.88, Nucleated RBC % 0 12/21/22 07:50: Sodium 140, Potassium 4.3, Chloride 104, Carbon Dioxide 27.0, Anion Gap 9, BUN 43 H, Creatinine 1.29 H, Estim Creat Clear Calc 46.13, Est GFR (MDRD) Af Amer 55 L, Est GFR (MDRD) Non-Af 46 L, BUN/Creatinine Ratio 33.3 H, Glucose 299 H, Calcium 8.5, Triglycerides 117, Cholesterol 119, LDL Cholesterol 63, VLDL Cholesterol 23, HDL Cholesterol 33 L, TSH 0.53 12/21/22 07:50: Troponin I High Sens 168 H* 12/21/22 07:50: Retic Count 1.65 H, Immature Retic Fraction 37.10 H, Retic Hgb Equivalent 20.3 L 12/21/22 07:50: Iron 21 L, TIBC 251, Iron Saturation 8.4 L, Ferritin 42 12/21/22 18:02: POC Glucose 300 H 12/21/22 20:45: POC Glucose 334 H 12/22/22 04:40: WBC 7.6, RBC 3.13 L, Hgb 7.2 L, Hct 25.1 L, MCV 80.2 L, MCH 23.0 L, MCHC 28.7 L, RDW Std Deviation 50.3 H, RDW Coeff of Abbe 17.2 H, Plt Count 402, MPV 9.7, Immature Gran % (Auto) 0.800, Neut % (Auto) 80.4 H, Lymph % (Auto) 13.4 L, [place] % (Auto) 5.3, Eos % (Auto) 0.0, Baso % (Auto) 0.1, Absolute Neuts (auto) 6.1, Absolute Lymphs (auto) 1.01, Nucleated RBC % 0 12/22/22 04:40: Sodium 136, Potassium 4.1, Chloride 102, Carbon Dioxide 26.0, Anion Gap 8, BUN 41 H, Creatinine 1.20 H, Estim Creat Clear Calc 49.59, Est GFR (MDRD) Af Amer 60, Est GFR (MDRD) Non-Af 49 L, BUN/Creatinine Ratio 34.2 H, Glucose 393 H, Calcium 8.5 Micro: Microbiology 05/23/23 12:29 Blood Culture (Wb) - Left Forearm Blood Culture - Preliminary Coag Negative Staph Radiology Impression Echocardiogram 12/20/22 16:18 Interpretation Summary Normal left ventricle. The estimated ejection fraction is 45 %. There is mild to moderate global hypokinesis of the left ventricle. Mild concentric left ventricular hypertrophy. Pulmonary artery systolic pressure is 35 mmHg. Contrast injection was performed. Ordering Physician: Alexandr Cline Referring Physician: Isha Alberts Performed By: Racheal Garcia RDCS, RVT Liver Ultrasound 12/21/22 07:03 IMPRESSION: Hepatomegaly with diffuse fatty infiltration of the liver, no discrete lesion Distended gallbladder, but no sonographic evidence of acute gallbladder disease. Sonographically normal right kidney Limited study Electronically Signed: Gerald Reyna MD at 11:36 EDT , Venous Doppler Study 12/21/22 09:14 Interpretation Summary Acute superficial vein thrombosis noted in the right cephalic vein. Ordering Physician: Nikkie Alcazar Referring Physician: Lexus Vieira Performed By: Cassie Marinelli RDCS, RVT ??? Shoulder X-Ray 12/21/22 09:35 IMPRESSION: Anterior-inferior dislocation of the humeral head relative to the glenoid, follow-up recommended to ensure anatomic alignment after reduction Subluxation of the acromioclavicular joint with widening of the AC joint and inferior displacement of the clavicle relative to the acromion by one half width of the clavicle. Electronically Signed: Gerald Reyna MD at 11:20 EDT , Upper Extremity CT 12/21/22 14:55 IMPRESSION: There is a slightly low-lying appearance of the humeral head relative to the glenoid within the joint space with moderate narrowing and probable joint effusion. There is no visualized acute fracture. There is no visualized acromioclavicular separation. There is slight angulation of the distal clavicle. Well-corticated border suggesting possible prior injury. Allowing for patient''s condition if pain persists recommend consideration for MRI. Electronically Signed: Tiffany Anderson MD at 15:50 EDT ,
[2022-12-22] MEDS: Aspirin E.C. 81 MG Tablet PO (07:32)
[2022-12-22] MEDS: Insulin Lispro 100 UNIT/ML INSULN.PEN 20 UNIT SC (07:32)
[2022-12-22] MEDS: Multivitamins,Therapeutic Tablet 1 TABLET PO (07:32)
[2022-12-22] MEDS: Insulin Glargine-YFGN 100 UNIT/ML Pen 40 UNIT SC (07:49)
[2022-12-22] MEDS: Furosemide 40 MG/4 ML Vial IV (07:50)
[2022-12-22] MEDS: RisperiDONE 1 MG Tablet PO (07:51)
[2022-12-22] MEDS: Lactulose 20 GM/30 ML UDC PO (07:51)
[2022-12-22] MEDS: Metoprolol(XL)Succ 50 MG Tablet PO (07:51)
[2022-12-22] MEDS: Famotidine 20 MG Tablet PO (07:51)
[2022-12-22] MEDS: Lidocaine 5% Patch 2 PATCH TOPICAL (07:52)
[2022-12-22] MEDS: Gabapentin 300 MG Capsule PO (08:02)
--- NOTE | 2022-12-22 08:08 | PN.RENAL_ITS ---
Subjective Subjective Resting in bed, no overnight events. Objective Data Objective Data Vital Signs: Vital Signs Temp Pulse Resp BP Pulse Ox O2 Del Method O2 Flow Rate 98.2 F 95 23 H 136/90 H 99 Nasal Cannula 3 12/22/22 06:00 12/22/22 07:51 12/22/22 07:00 12/22/22 07:00 12/22/22 07:00 12/22/22 07:00 12/22/22 07:00 FiO2 30 12/22/22 03:10 Oxygen Flow Rate (L/min) 3 Oxygen Delivery Method Nasal Cannula Weight: 165.7 kg Body Mass Index (BMI) 58.7 Intake & Output: Intake and Output for Last 24 Hours 12/20/22 12/21/22 12/22/22 23:59 23:59 23:59 Intake Total 50.25 / 50.25 993 / 993 500 / 500 Output Total 1200 / 1200 3200 / 3200 900 / 900 Balance -1149.75 / -1149.75 -2207 / -2207 -400 / -400 Lab / Micro Data Result Diagrams: 12/22/22 04:40 12/22/22 04:40 Labs: Laboratory Results - last 24 hr 12/21/22 07:50: Sodium 140, Potassium 4.3, Chloride 104, Carbon Dioxide 27.0, Anion Gap 9, BUN 43 H, Creatinine 1.29 H, Estim Creat Clear Calc 46.13, Est GFR (MDRD) Af Amer 55 L, Est GFR (MDRD) Non-Af 46 L, BUN/Creatinine Ratio 33.3 H, Glucose 299 H, Calcium 8.5, Triglycerides 117, Cholesterol 119, LDL Cholesterol 63, VLDL Cholesterol 23, HDL Cholesterol 33 L, TSH 0.53 12/21/22 07:50: Troponin I High Sens 168 H* 12/21/22 07:50: Retic Count 1.65 H, Immature Retic Fraction 37.10 H, Retic Hgb Equivalent 20.3 L 12/21/22 07:50: Iron 21 L, TIBC 251, Iron Saturation 8.4 L, Ferritin 42 12/21/22 18:02: POC Glucose 300 H 12/21/22 20:45: POC Glucose 334 H 12/22/22 04:40: WBC 7.6, RBC 3.13 L, Hgb 7.2 L, Hct 25.1 L, MCV 80.2 L, MCH 23.0 L, MCHC 28.7 L, RDW Std Deviation 50.3 H, RDW Coeff of Abbe 17.2 H, Plt Count 402, MPV 9.7, Immature Gran % (Auto) 0.800, Neut % (Auto) 80.4 H, Lymph % (Auto) 13.4 L, [place] % (Auto) 5.3, Eos % (Auto) 0.0, Baso % (Auto) 0.1, Absolute Neuts (auto) 6.1, Absolute Lymphs (auto) 1.01, Nucleated RBC % 0 12/22/22 04:40: Sodium 136, Potassium 4.1, Chloride 102, Carbon Dioxide 26.0, Anion Gap 8, BUN 41 H, Creatinine 1.20 H, Estim Creat Clear Calc 49.59, Est GFR (MDRD) Af Amer 60, Est GFR (MDRD) Non-Af 49 L, BUN/Creatinine Ratio 34.2 H, Glucose 393 H, Calcium 8.5 Micro: Microbiology 12/20/22 10:29 Blood Culture (Wb) - Anticubital Left Blood Culture - Preliminary No growth in 48 hours. 12/20/22 12:29 Blood Culture (Wb) - Left Forearm Blood Culture - Preliminary Coag Negative Staph 12/20/22 17:05 Mucosa - Nasopharyngeal Respiratory Panel (PCR) - Final 12/20/22 11:18 Nasal Secretion SARS-CoV-2 & FLU Antigen (Rapid) - Final Radiography Diagnostic Testing: Radiology Impression Echocardiogram 12/20/22 16:18 Interpretation Summary Normal left ventricle. The estimated ejection fraction is 45 %. There is mild to moderate global hypokinesis of the left ventricle. Mild concentric left ventricular hypertrophy. Pulmonary artery systolic pressure is 35 mmHg. Contrast injection was performed. Ordering Physician: Alexandr Cline Referring Physician: Isha Alberts Performed By: Racheal Garcia RDCS, RVT Liver Ultrasound 12/21/22 07:03 IMPRESSION: Hepatomegaly with diffuse fatty infiltration of the liver, no discrete lesion Distended gallbladder, but no sonographic evidence of acute gallbladder disease. Sonographically normal right kidney Limited study Electronically Signed: Gerald Reyna MD at 11:36 EDT , Venous Doppler Study 12/21/22 09:14 Interpretation Summary Acute superficial vein thrombosis noted in the right cephalic vein. Ordering Physician: Nikkie Alcazar Referring Physician: Lexus Vieira Performed By: Cassie Marinelli, RDCS, RVT ??? Shoulder X-Ray 12/21/22 09:35 IMPRESSION: Anterior-inferior dislocation of the humeral head relative to the glenoid, follow-up recommended to ensure anatomic alignment after reduction Subluxation of the acromioclavicular joint with widening of the AC joint and inferior displacement of the clavicle relative to the acromion by one half width of the clavicle. Electronically Signed: Gerald Reyna MD at 11:20 EDT , Upper Extremity CT 12/21/22 14:55 IMPRESSION: There is a slightly low-lying appearance of the humeral head relative to the glenoid within the joint space with moderate narrowing and probable joint effusion. There is no visualized acute fracture. There is no visualized acromioclavicular separation. There is slight angulation of the distal clavicle. Well-corticated border suggesting possible prior injury. Allowing for patient''s condition if pain persists recommend consideration for MRI. Electronically Signed: Tiffany Anderson MD at 15:50 EDT , Physical Exam Narrative Alert awake oriented x 3, no obvious distress s1s2 no murmurs lungs clear abdomen soft , non-tender no edema pastrana + tunneled HD catheter right chest Assessment & Plan Assessment/Plan (1) Congestive heart failure: (2) JONATHAN (acute kidney injury): PLAN: This is a 57-year-old female with past medical history significant for diabetes mellitus type 2, COPD, hypertension, morbid obesity, combined systolic and diastolic heart failure, history of cocaine use with no prior kidney disease brought to the emergency room for evaluation of altered mental status. She was admitted at [facility] with acute renal failure due to ATN/cardiorenal syndrome. - Dialysis requiring acute kidney injury; creatinine 1.2 mg/dL today. Patient is nonoliguric, potassium and bicarb normal. Volume status acceptable. Patient has not received dialysis in more than 10 days as per her. No further need for [employer] at this time. Patient still has right IJ tunneled dialysis catheter. Surgery team consulted and planning for removal of tunneled HD catheter today. - Congestive heart failure. With low ejection fraction as per previous records. Continue IV Lasix 40 mg twice daily. Per cumulative I&O patient is net -3.7 L. - As per records, she had hematuria, proteinuria on urine analysis. Will reevaluate urine once Pastrana catheter comes out. Will arrange for hospital follow-up
--- NOTE | 2022-12-22 08:15 | NURSING ---
patient requested AM meds with her breakfast.
[2022-12-22 08:36] LABS: Bedside Glucose 356 mg/dL (74-106)
--- NOTE | 2022-12-22 09:45 | NURSING ---
Ricky at bedside to remove tunnelled dialysis catheter.
--- NOTE | 2022-12-22 10:24 | PCM.DC.SUM ---
Providers Date of Admission: 12/20/22 Date of Discharge: 12/22/22 Primary Care Physician: Dr. Lexus Vieira MD Consultations 12/20/22 16:18 Consult: Engine Lathe Set Up Operator Tool / Pulmonary Medicine Routine Consulting Provider: Pulmonary Medicine phillip Dick Reason for Consult: acut on chr resp failure, unrsponsive EMERGENT Consult: No Notified: Yes Date Notified: 12/20/22 Time Notified: 15:39 Method of Notification: ED Physician Initiated Consult: Nephrology Routine Consulting Provider: Krystle Cooper Reason for Consult: acute on ckd, anasarca, HF exa EMERGENT Consult: No Notified: Yes Date Notified: 12/20/22 Time Notified: 15:38 Method of Notification: Verbal 12/21/22 10:22 Consult: General Surgery Routine Consulting Provider: Karina García Reason for Consult: Remove tunneled dialysis catheter EMERGENT Consult: No Notified: Yes Date Notified: 12/21/22 Time Notified: 10:22 Method of Notification: Verbal 12/21/22 13:43 Consult: Orthopedics Routine Consulting Provider: William Baeza Reason for Consult: R shld dislocation EMERGENT Consult: No Notified: Yes Date Notified: 12/21/22 Time Notified: 13:43 Method of Notification: Verbal Reason For Visit: ACUTE ON CHRONIC RESP FAILURE, UNRESPONSIVE Diagnosis Discharge Diagnosis (1) Encounter for dialysis catheter care: Status: Acute Code(s): Z49.01 - Encounter for fitting and adjustment of extracorporeal dialysis catheter Plan Acute on chronic hypoxic and hypercapnic respiratory failure -Suspect multifactorial -Doubt infectious--> no leukocytosis or left shift -Discontinue Zosyn -Continue Lasix -Discontinue steroids -Check echocardiogram -?Compliance with BiPAP at at bedtime at facility -Start BiPAP with naps and at bedtime here -Dependent on oxygen at baseline 3 L -Currently requiring 5 L -Continue I-S -Continue Acapella -Pulm/critical care medicine consulted Toxic/metabolic encephalopathy -Suspect related to respiratory acidosis -Possibly complicated by medications and hyperammonemia -Start lactulose daily -Status is back to baseline -Hold Ultram -Restart gabapentin -Restart Risperdal at lower dose Troponin elevation -Mild and has trended down since improvement in renal function -Suspect related to hypoxia -Echocardiogram pending Right upper extremity swelling and pain -Right upper extremity Doppler showed superficial thrombus in the cephalic vein -No further treatment needed -X-rays were suggestive of right shoulder dislocation -Discussed case with orthopedic surgery and they recommended CAT scan and if truly dislocated recommended transfer to tertiary center -Discussed with patient and she would prefer [facility] or [facility] in [place] if there is dislocation -CT results pending -Elevate as able -Minimize movement -As needed pain medication Hyperammonemia -Lactulose daily -Right upper quadrant ultrasound shows fatty liver -Suspect KEARNEY -Would recommend outpatient GI follow-up Microcytic anemia -Documented the patient had recent GI bleed -Hemoglobin has been stable overnight -Iron studies obtained and are consistent with anemia of chronic disease -Continue home famotidine -Continue oral sodium bicarb for reflux -Can continue Carafate JONATHAN on CKD stage III -Slight bump in serum creatinine on presentation however this is resolved -Neurology was consulted and recommend discontinuation of tunneled dialysis catheter -General surgery consulted and plan is for removal tomorrow Constipation -Lactulose should help -Continue home polyethylene glycol -As needed docusate DM-2 -Restart glargine 28 units twice daily -Start lispro 20 units 3 times daily -Continue sliding scale -Accu-Cheks as ordered Diabetic neuropathy -Restart gabapentin Hypertension/hyperlipidemia -Restart isosorbide dinitrate -Restart hydralazine -Restart statin -Restart aspirin Seasonal allergies -Restart Singulair Depression -Restart Risperdal at slightly lower dose LAVERN -Nocturnal BiPAP -BiPAP with naps Morbid obesity -BMI is 58.2 -Recommend weight loss -Complicates treatment, prognosis, outcomes DVT prophylaxis -Subcu heparin CODE STATUS Full code Medications at Discharge Home Medications aspirin 81 mg tablet,delayed release 81 mg PO DAILY HEART HEALTH 12/20/22 atorvastatin 20 mg tablet 20 mg PO QHS CHOLESTEROL 12/20/22 diclofenac sodium 1 % topical gel 1 ea topical BID PAIN 12/20/22 famotidine 20 mg tablet 20 mg PO DAILY ACID REFLUX 12/20/22 fluticasone 113 mcg-salmeterol 14 mcg/actuation breath activated powdr 1 inh inhalation BID SHORTNESS OF BREATH 12/20/22 gabapentin 300 mg capsule 300 mg PO BID NERVE PAIN 12/20/22 hydralazine 50 mg tablet 50 mg PO TID BLOOD PRESSURE 12/20/22 insulin lispro 100 unit/mL subcutaneous pen 20 unit subcut TIDCM DIABETES 12/20/22 isosorbide dinitrate 10 mg tablet 10 mg PO TID BLOOD PRESSURE 12/20/22 lidocaine 4 % topical patch (Lidocaine Pain Relief) 2 patch topical BID RIGHT SHOULDER/ARM PAIN 12/20/22 melatonin 3 mg tablet 3 mg PO QHS PRN Insomnia 12/20/22 metoprolol succinate 50 mg tablet,extended release 24 hr 50 mg PO DAILY BLOOD PRESSURE 12/20/22 montelukast 10 mg tablet 10 mg PO QHS ALLERGIES 12/20/22 multivitamin 1 tab PO DAILY HEALTH MAINTENANCE 12/20/22 polyethylene glycol 3350 17 gram oral powder packet 17 g PO DAILY CONSTIPATION 12/20/22 risperidone 0.25 mg tablet 0.25 mg PO DAILY DEPRESSION 12/20/22 risperidone 0.5 mg tablet (Risperdal) 0.5 mg PO QHS DEPRESSION 12/20/22 risperidone 1 mg tablet (Risperdal) 1 mg PO DAILY DEPRESSION 12/20/22 sennosides 8.6 mg tablet (senna) 17.2 mg PO DAILY CONSTIPATION 12/20/22 sodium bicarbonate 650 mg tablet 650 mg PO TID ACID REFLUX 12/20/22 sucralfate 1 gram tablet 1 g PO TID ULCERS 12/20/22 torsemide 20 mg tablet 20 mg PO BID FLUID 12/20/22 tramadol 50 mg tablet 50 mg PO BID PRN PAIN 12/20/22 insulin glargine-yfgn 100 unit/mL (3 mL) subcutaneous pen 40 unit (0.4 mL) subcut BID #0 mL 12/22/22 Hospital Course Procedures 2-D Echocardiogram, EKG and - (CT brain/chest x-ray/removal of tunneled dialysis catheter/CT right shoulder/x-ray right shoulder/liver ultrasound/right upper extremity venous duplex) Summary of Care Provided Minutes Spent on Discharge: 37 Hospital Course: Mrs. Carroll is a 57-year-old white female who who has a history of morbid obesity and resides in a local half-way who was brought to the emergency department at [facility] on 12/20/2022 for minimal responsiveness only to sternal rub.? Evidently, she was alert and oriented times 3 in the morning but per EMS documentation decreased responsiveness over the last few days was noted.? Blood sugar was normal.? She is O2 dependent with 3 L of oxygen at baseline and BiPAP at night.? ABG showed hypercapnia on 2 L and a respiratory acidosis.? pH was 7.27/PCO2 was 64.3/PO2 is 70 on 2 L supplemental nasal cannula.? CBC showed a stable normocytic anemia.? Chemistry panel showed a serum creatinine is elevated and seems to be rising when compared to previous data.? The patient has evidently been on dialysis previously.? Her ammonia level is slightly elevated at 53.? Her initial troponin was 260.? BNP was elevated at 664.4.? Vital signs have overall been stable however patient is requiring a bit more oxygen than her baseline is currently on 5 L nasal cannula with an oxygen saturation of 90%. She was admitted to the ICU and was quickly able to be transitioned off BiPAP to nasal cannula with faith of her mental status. We suspect that her hypercapnia was multifactorial with regards to her baseline sleep apnea, obesity hypoventilation syndrome, and medications. We do recommend that she not be given Flexeril and to limit gabapentin use. I would continue her Resporal for her baseline depression as this seems to be an ongoing problem for her. With regards to her right upper extremity we completed an ultrasound which only showed a superficial clot in the cephalic vein at the elbow. No further interventions needed for this. We checked x-rays of the right shoulder as she was complaining of pain. The suggestive of dislocation so we discussed the case with orthopedic surgery and they felt that it was unclear whether it was dislocated or not based on the x-rays so recommended a CT scan of her shoulder. This was performed and no dislocation or acute bony abnormality was identified. 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 I discussed the findings with her and recommended ongoing physical therapy and movement in that right upper extremity to avoid further swelling and improving function. If her shoulder remains painful she may need an outpatient MRI which will need to be open. She is to follow-up with Dr. Baeza if she continues to have pain with no improvement over the next 7 to 10 days. Her renal function appears to be stable and nephrology was consulted. They recommended no further dialysis and removal of her tunneled dialysis catheter to avoid infection. Her dialysis catheter was removed by general surgery on 12/22/2022. Post removal care included removal of the pressure dressing later today and changing the direction over the incision/previous site daily until healed with no shower for 24 hours. Her ammonia level was noted to be slightly elevated on presentation so we did obtain a right upper quadrant ultrasound as we were suspicious for fatty liver disease. The ultrasound was consistent with fatty liver disease. I do not think her ammonia level overall contributed to her mental status issues and would recommend a repeat check in a week to reassess and if elevated start lactulose. She had a slightly elevated troponin on presentation however it quickly trended down. We did obtain an echocardiogram which noted an EF of 45% with mild to moderate global hypokinesis of the LV, mild concentric LVH and a pulmonary systolic pressure of 35 mmHg. She was maintained on BiPAP with naps and during sleep during her hospital course. We recommend she continue this after discharge. Settings were 16/10 with a rate of 12 and 30% FiO2 while sleeping. Given the fact that her mental status was at baseline and clinically she was stable, after the removal of her tunneled dialysis catheter she was able to be discharged back to [facility] in stable condition on 12/22/2022. She will need to follow-up with her primary care physician within the next [address] Baeza as noted above if her shoulder continues to be problematic. Discharge diagnoses: Acute on chronic hypoxic and hypercapnic respiratory failure-acuity resolved Toxic/metabolic encephalopathy-resolved Troponin elevation-resolved Right upper extremity swelling and pain Superficial venous thrombosis of right upper extremity Mild hyperammonemia Fatty liver disease Chronic microcytic anemia JONATHAN-resolved CKD stage IIIa -Constipation DM-2 Diabetic neuropathy Hypertension Hyperlipidemia Seasonal allergies Depression Obesity hypoventilation syndrome LAVERN Morbid obesity Physical Exam Narrative Patient states she is fine and would like to get out here soon as possible. She states she does not feel that she has been treated well and would like to go back as soon as her dialysis catheter is out. Const alert, oriented x3, no apparent distress and well nourished; Negative for average body habitus or healthy appearing Constitutional Narrative: Morbidly obese, -[place] female, sitting up in bed, calmer today, appears comfortable and nontoxic General Appearance: cooperative, comfortable, well kempt and well developed Orientation / Consciousness: awake, oriented to person, oriented to place and oriented to time Exam Limitations: no limitations Nutritional Appearance: morbidly obese HEENT normocephalic, head/scalp atraumatic, hearing grossly normal bilaterally and moist oral mucous membranes HEENT Narrative: Mallampati 4, no thrush Eyes PERRL and EOMs intact bilaterally Eyes Narrative: Conjunctiva are pale bilaterally, no scleral icterus Neck no lymphadenopathy and supple Neck Narrative: Trachea midline, no thyroid enlargement Resp normal respiratory effort, no retractions, no use of accessory muscles and clear to auscultation bilaterally Resp Narrative: Diffusely diminished and distant due to body habitus Auscultation: Negative for rales, rhonchi or wheezes Cardio regular rate, regular rhythm, S1 normal heart sound, S2 normal heart sound, no murmurs, no rub, no gallops and no clicks Cardio Narrative: Distant due to body habitus GI normal to inspection, nondistended, normoactive bowel sounds, soft to palpation and non-tender Extremity Extremity Narrative: Right upper extremity swelling, decreased movement in right shoulder due to pain, no cyanosis or clubbing Skin Skin Narrative: Right-sided tunneled dialysis catheter-dressed, clean and dry, no drainage no significant tenderness--> to be removed prior to discharge Neuro oriented x3, CN's II-XII intact bilaterally, moves all extremities and no focal motor deficits Neuro Narrative: Patrice a generalized weakness with decreased mobility Speech: speech normal Psych Psych Narrative: Agitated and argumentative Weight / BMI Weight Weight: 165.7 kg Body Mass Index (BMI) 58.7 ABG / Lab / Microbiology Data Result Diagrams: 12/22/22 04:40 12/22/22 04:40 Laboratory: Laboratory Results - last 24 hr 12/21/22 07:50: Retic Count 1.65 H, Immature Retic Fraction 37.10 H, Retic Hgb Equivalent 20.3 L 12/21/22 07:50: Iron 21 L, TIBC 251, Iron Saturation 8.4 L, Ferritin 42 12/21/22 18:02: POC Glucose 300 H 12/21/22 20:45: POC Glucose 334 H 12/22/22 04:40: WBC 7.6, RBC 3.13 L, Hgb 7.2 L, Hct 25.1 L, MCV 80.2 L, MCH 23.0 L, MCHC 28.7 L, RDW Std Deviation 50.3 H, RDW Coeff of Abbe 17.2 H, Plt Count 402, MPV 9.7, Immature Gran % (Auto) 0.800, Neut % (Auto) 80.4 H, Lymph % (Auto) 13.4 L, [place] % (Auto) 5.3, Eos % (Auto) 0.0, Baso % (Auto) 0.1, Absolute Neuts (auto) 6.1, Absolute Lymphs (auto) 1.01, Nucleated RBC % 0 12/22/22 04:40: Sodium 136, Potassium 4.1, Chloride 102, Carbon Dioxide 26.0, Anion Gap 8, BUN 41 H, Creatinine 1.20 H, Estim Creat Clear Calc 49.59, Est GFR (MDRD) Af Amer 60, Est GFR (MDRD) Non-Af 49 L, BUN/Creatinine Ratio 34.2 H, Glucose 393 H, Calcium 8.5 12/22/22 07:45: POC Glucose 356 H Microbiology: Microbiology 12/20/22 10:29 Blood Culture (Wb) - Anticubital Left Blood Culture - Preliminary No growth in 48 hours. 12/20/22 12:29 Blood Culture (Wb) - Left Forearm Blood Culture - Preliminary Coag Negative Staph 12/20/22 17:05 Mucosa - Nasopharyngeal Respiratory Panel (PCR) - Final 12/20/22 11:18 Nasal Secretion SARS-CoV-2 & FLU Antigen (Rapid) - Final Radiography Diagnostic Testing: Radiology Impression Echocardiogram 12/20/22 16:18 Interpretation Summary Normal left ventricle. The estimated ejection fraction is 45 %. There is mild to moderate global hypokinesis of the left ventricle. Mild concentric left ventricular hypertrophy. Pulmonary artery systolic pressure is 35 mmHg. Contrast injection was performed. Ordering Physician: Alexandr Cline Referring Physician: Isha Alberts Performed By: Racheal Garcia, DANISHCS, RVT Liver Ultrasound 12/21/22 07:03 IMPRESSION: Hepatomegaly with diffuse fatty infiltration of the liver, no discrete lesion Distended gallbladder, but no sonographic evidence of acute gallbladder disease. Sonographically normal right kidney Limited study Electronically Signed: Gerald Reyna MD at 11:36 EDT , Venous Doppler Study 12/21/22 09:14 Interpretation Summary Acute superficial vein thrombosis noted in the right cephalic vein. Ordering Physician: Nikkie Alcazar Referring Physician: Lexus Vieira Performed By: Cassie Marinelli, NIMA, RVT ??? Shoulder X-Ray 12/21/22 09:35 IMPRESSION: Anterior-inferior dislocation of the humeral head relative to the glenoid, follow-up recommended to ensure anatomic alignment after reduction Subluxation of the acromioclavicular joint with widening of the AC joint and inferior displacement of the clavicle relative to the acromion by one half width of the clavicle. Electronically Signed: Gerald Reyna MD at 11:20 EDT , Upper Extremity CT 12/21/22 14:55 IMPRESSION: There is a slightly low-lying appearance of the humeral head relative to the glenoid within the joint space with moderate narrowing and probable joint effusion. There is no visualized acute fracture. There is no visualized acromioclavicular separation. There is slight angulation of the distal clavicle. Well-corticated border suggesting possible prior injury. Allowing for patient''s condition if pain persists recommend consideration for MRI. Electronically Signed: Tiffany Anderson MD at 15:50 EDT , Meaningful Use Info Meaningful Use Diagnoses (Choose all that apply): None applicable Discharge Plan Admission Admit Date/Time: 12/20/22 15:07 Primary Reason for Your Visit: Acute Mental Status Change Attending Provider: Nikkie Alcazar Primary Care Provider: Lexus Vieira Consulting Providers: Usman Noriega ; Farhan Gregory ; Ottoniel Jennings ; Kaz Ramirez ; Ketty Morales NP ; Krystle Cooper ; Alexandr Cline ; Karina García ; William Baeza Discharge Orders/Prescriptions Prescriptions: New insulin glargine-yfgn 100 unit/mL (3 mL) Insulin Pen 40 unit subcut BID Qty: 0 0RF Continued atorvastatin 20 mg Tablet 20 mg PO QHS melatonin 3 mg Tablet 3 mg PO QHS PRN (Reason: Insomnia) aspirin 81 mg Tablet,Delayed Release (Dr/Ec) 81 mg PO DAILY famotidine 20 mg Tablet 20 mg PO DAILY gabapentin 300 mg Capsule 300 mg PO BID diclofenac sodium 1 % Gel 1 ea TOPICAL BID fluticasone propion-salmeterol 113-14 mcg/actuation Aerosol Powdr Breath Activated 1 inh INHALATION BID multivitamin Tablet 1 tab PO DAILY isosorbide dinitrate 10 mg Tablet 10 mg PO TID sennosides [senna] 8.6 mg Tablet 17.2 mg PO DAILY torsemide 20 mg Tablet 20 mg PO BID lidocaine [Lidocaine Pain Relief] 4 % Adhesive Patch,Medicated 2 patch TOPICAL BID polyethylene glycol 3350 17 gram Powder In Packet 17 g PO DAILY metoprolol succinate 50 mg Tablet Extended Release 24 Hr 50 mg PO DAILY sucralfate 1 gram Tablet 1 g PO TID risperidone 0.25 mg Tablet 0.25 mg PO DAILY tramadol 50 mg Tablet 50 mg PO BID PRN (Reason: PAIN ) sodium bicarbonate 650 mg Tablet 650 mg PO TID montelukast 10 mg Tablet 10 mg PO QHS hydralazine 50 mg Tablet 50 mg PO TID risperidone [Risperdal] 1 mg Tablet 1 mg PO DAILY risperidone [Risperdal] 0.5 mg Tablet 0.5 mg PO QHS insulin lispro 100 unit/mL Insulin Pen 20 unit SUBCUT TIDCM Discontinued cyclobenzaprine 10 mg Tablet 10 mg PO BID insulin glargine 100 unit/mL Solution 28 unit SUBCUT BID Referrals / Follow Up: Lexus Vieira MD [Primary Care Provider] - Within 1 Week William Baeza MD [Med Staff - Active Staff] - See Referral Note (If your right shoulder is not improving in the next 7 to 10 days call office to set up an appointment) Lexus Vieira MD [[facility]] - Disposition Disposition (needs filled in before D/C Order can be placed): Longterm Facility Charges/Coding Visit Charges Inpatient E&M: 71411 SNF Disch >30 Min
--- NOTE | 2022-12-22 10:31 | PCM.OPRPT ---
Report of Operation Date of Procedure: 12/22/22 Pre-Operative Diagnosis: dialysis catheter adjustment/care Post-Operative Diagnosis: Same Surgery/Procedure Performed:: Removal of tunneled dialysis catheter Surgeon: Karina García Type of Anesthesia: Local Specimen's removed: Right IJ tunneled dialysis catheter Estimated Blood Loss (mL): < 10 cc Description of Procedure: Informed consent was obtained. Right chest and catheters prepped draped usual sterile fashion with Betadine. Local anesthesia 1% lidocaine with epinephrine was infiltrated near the exit site as well as near the cuff. An incision was made overlying the cuff with a 11 blade scalpel. The cuff was dissected free with a hemostat. The catheter was removed easily as pressure was held for about 15 minutes at the right IJ site. The incision was closed with Steri-Strips and the exit site was left open. Hemostasis was assured. Patient tolerated procedure well. Complications none
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
--- NOTE | 2022-12-22 10:56 | PCM.TXEXTCAR ---
Diet Diet Order/Speech Therapy: 12/20/22 16:53 Diet: Cardiac: Calorie-Controlled Food consistency:: Regular Liquid Consistency:: Regular/Thin How many daily calories?: 1800 calorie Routine Orders/Code Status O2 Liters per Minute: 3 O2 Frequency: BiPAP 16/10 with a 3 L bleed while sleeping and with naps Keep PO Greater than or Equal to (%): 88 Routine Lab Work: CBC (In 5 days), BMP (In 5 days) and - (Check ammonia level in 5 days and add lactulose if elevated) Wound(s) Left Hip: Wound Type: Pressure Injury under left breast: Wound Type: Skin Tear coccyx: Wound Type: open slit area Suggestions for Active Care Change Position every (hours): 2 Therapies Weight Bearing: Weight bearing as tolerated Extremity Affected:: Right Upper Physical Therapy: Eval and Treat (Right shoulder passive and active range of motion) Occupational Therapy: Eval and Treat (Right shoulder active and passive range of motion) Problem/Diagnosis (1) Encounter for dialysis catheter care: Status: Acute Code(s): Z49.01 - Encounter for fitting and adjustment of extracorporeal dialysis catheter Allergies/Procedures Done in Hospital Allergies No Known Allergies Allergy (Verified 12/20/22 10:29) Procedures: 2-D Echocardiogram, EKG and - (HD catheter removal) Type of Care/Length of Stay Estimated LOS: More Than 30 Days Type of Care Needed: Intermediate Rehab Potential: Fair Prognosis: Fair Additional Orders/Day of Discharge Day of Discharge: 12/22/22 Dietary and Speech Recommendations Dietitian Recommendations/Changes: continue cardiac, 1800 calorie controlled diet as medically indicated Discharge Plan Admission Admit Date/Time: 12/20/22 15:07 Primary Reason for Your Visit: Acute Mental Status Change Attending Provider: Nikkie Alcazar Primary Care Provider: Lexus Vieira Consulting Providers: Usman Noriega ; Farhan Gregory ; Ottoniel Jennings ; Kaz Ramirez ; Ketty Morales YARN WR[employer]PER ; Krystle Cooper ; Alexandr Cline ; Karina García ; William Baeza Discharge Orders/Prescriptions Prescriptions: New insulin glargine-yfgn 100 unit/mL (3 mL) Insulin Pen 40 unit subcut BID Qty: 0 0RF Continued atorvastatin 20 mg Tablet 20 mg PO QHS melatonin 3 mg Tablet 3 mg PO QHS PRN (Reason: Insomnia) aspirin 81 mg Tablet,Delayed Release (Dr/Ec) 81 mg PO DAILY famotidine 20 mg Tablet 20 mg PO DAILY gabapentin 300 mg Capsule 300 mg PO BID diclofenac sodium 1 % Gel 1 ea TOPICAL BID fluticasone propion-salmeterol 113-14 mcg/actuation Aerosol Powdr Breath Activated 1 inh INHALATION BID multivitamin Tablet 1 tab PO DAILY isosorbide dinitrate 10 mg Tablet 10 mg PO TID sennosides [senna] 8.6 mg Tablet 17.2 mg PO DAILY torsemide 20 mg Tablet 20 mg PO BID lidocaine [Lidocaine Pain Relief] 4 % Adhesive Patch,Medicated 2 patch TOPICAL BID polyethylene glycol 3350 17 gram Powder In Packet 17 g PO DAILY metoprolol succinate 50 mg Tablet Extended Release 24 Hr 50 mg PO DAILY sucralfate 1 gram Tablet 1 g PO TID risperidone 0.25 mg Tablet 0.25 mg PO DAILY tramadol 50 mg Tablet 50 mg PO BID PRN (Reason: PAIN ) sodium bicarbonate 650 mg Tablet 650 mg PO TID montelukast 10 mg Tablet 10 mg PO QHS hydralazine 50 mg Tablet 50 mg PO TID risperidone [Risperdal] 1 mg Tablet 1 mg PO DAILY risperidone [Risperdal] 0.5 mg Tablet 0.5 mg PO QHS insulin lispro 100 unit/mL Insulin Pen 20 unit SUBCUT TIDCM Discontinued cyclobenzaprine 10 mg Tablet 10 mg PO BID insulin glargine 100 unit/mL Solution 28 unit SUBCUT BID Referrals / Follow Up: Lexus Vieira MD [Primary Care Provider] - Within 1 Week William Baeza MD [Med Staff - Active Staff] - See Referral Note (If your right shoulder is not improving in the next 7 to 10 days call office to set up an appointment) Lexus Vieira MD [[facility]] - Disposition Disposition (needs filled in before D/C Order can be placed): [facility]
--- NOTE | 2022-12-22 11:03 | CASEMGMT ---
SW called [facility] and arranged for patient to get picked up at 1130 via cot. SW notified RN, physician, and [facility]. Await orders to send to [facility]. Plan: d/c back to [facility] under intermediate level of care. [facility] transported via [facility]. Marlys BEYER
[2022-12-22] MEDS: Lidocaine 1% /Epi 1:100 (20ml) 20 ML Vial INFILT (11:12)
--- NOTE | 2022-12-22 11:27 | NURSING ---
report called to Merle at [facility]
== END 2022-12-22 11:55 | disposition skilled nursing facility (03) | DRG 194 ==
LOC: ED 15:30 → ICU 15:51
PROVIDERS: Internal Medicine Critical Care Medicine; Admitting Provider Internal Medicine; Emergency Provider Emergency Medicine; PCP Internal Medicine; Visit Provider Internal Medicine
DX: I13.0 Hypertensive heart and chronic kidney disease with heart failure and stage 1 through stage 4 chronic kidney disease, or unspecified chronic kidney disease (principal); J96.21 Acute and chronic respiratory failure with hypoxia; G92.8 Other toxic encephalopathy; E66.2 Morbid (severe) obesity with alveolar hypoventilation; Z68.43 Body mass index [BMI] 50.0-59.9, adult; D63.1 Anemia in chronic kidney disease; I82.611 Acute embolism and thrombosis of superficial veins of right upper extremity; N17.9 Acute kidney failure, unspecified; I50.43 Acute on chronic combined systolic (congestive) and diastolic (congestive) heart failure; E11.22 Type 2 diabetes mellitus with diabetic chronic kidney disease; J96.22 Acute and chronic respiratory failure with hypercapnia; J44.9 Chronic obstructive pulmonary disease, unspecified; Z79.4 Long term (current) use of insulin; E11.65 Type 2 diabetes mellitus with hyperglycemia; E11.40 Type 2 diabetes mellitus with diabetic neuropathy, unspecified; N18.31 Chronic kidney disease, stage 3a; E78.5 Hyperlipidemia, unspecified; K75.81 Nonalcoholic steatohepatitis (NASH); K59.00 Constipation, unspecified; J30.2 Other seasonal allergic rhinitis; M19.011 Primary osteoarthritis, right shoulder; M17.0 Bilateral primary osteoarthritis of knee; F32.A Depression, unspecified; R77.8 Other specified abnormalities of plasma proteins; Z45.2 Encounter for adjustment and management of vascular access device; Z91.199 Patient's noncompliance with other medical treatment and regimen due to unspecified reason; Z99.81 Dependence on supplemental oxygen; Z79.82 Long term (current) use of aspirin; Z79.891 Long term (current) use of opiate analgesic; Z79.899 Other long term (current) drug therapy; Z87.891 Personal history of nicotine dependence
CPT/HCPCS: 36415; 36600; 51702; 70450; 71045; 73030; 73200; 76705; 80048; 80053; 80061; 82140; 82550; 82728; 82803; 82962; 83540; 83550; 83605; 83735; 83880; 84100; 84443; 84484; 85025; 85045; 85610; 85730; 87040; 87428; 87633; 87635; 93005; 93306; 93971; 94002; 94003; 94640; 94668; 97802; 99285; J7050; Q9957; A4216; C8929; J1940; U0005

== ENCOUNTER → 2022-12-23 | Outpatient (REF) | payer MEDICAID, SELFPAY ==
[2022-12-23 06:45] LABS: Absolute Lymphocyte Count 3.03 X10^3/uL (0.83-4.51); Absolute Neutrophil Count 8.3 X10^3/uL (2.0-7.7); Basophil# 0.04 X10^3/uL; Basophil% 0.3 % (0-1); Eosinophil# 0.01 X10^3/uL; Eosinophils% 0.1 % (0-5); Hematocrit 25.2 % (37-47); Hemoglobin 7.4 g/dL (12.0-15.0); Lymphocyte # 3.03 X10^3/ul (0.83-4.51); Lymphocyte % 24.1 % (19-41); Mean Corp Hgb Conc 29.4 g/dL (32-36); Mean Corpuscular Hgb 23.1 pg (27.0-32.0); Mean Corpuscular Volume 78.5 fL (81-99); Mean Platelet Vol. 9.3 fl (6.2-12.0); Monocyte# 1.15 X10^3/uL; Monocyte% 9.1 % (0-10); NRBC Flagged by Analyzer 0 % (0-5); Neutrophil # 8.32 X10^3/uL (2.7-7.7); Neutrophil % 66.2 % (47-70); Platelet Count 420 K/mm3 (150-450); RBC Distribution Width CV 17.2 % (11.6-14.6); RBC Distribution Width SD 49.1 fl (35.1-43.9); Red Blood Count 3.21 M/mm3 (4.2-5.4); White Blood Count 12.6 K/mm3 (4.4-11.0)
[2022-12-23 07:09] LABS: Anion Gap 7 (5-15); BUN 37 mg/dL (7-18); BUN/Creat Ratio 37.8 RATIO (10-20); Calcium,Total 9.1 mg/dL (8.5-10.1); Chloride 102 mmol/L (98-107); Creatinine, Serum 0.98 mg/dL (0.55-1.02); EST Glomerular Filtration Rate 63 mL/min (>60); Est Glom Filt Rate - Afr Amer 76 mL/min (>60); Glucose 212 mg/dL (74-106); Potassium 3.1 mmol/L (3.5-5.1); Sodium Level 139 mmol/L (136-145)
[2022-12-23 07:49] LABS: Vitamin B12 444 pg/mL (211-911); Vitamin D,25 Hydroxy 42.4 ng/mL
== END | disposition home or self-care (01) ==
LOC: OLS.SW 05:00
PROVIDERS: PCP Internal Medicine; Visit Provider Internal Medicine
DX: J80 Acute respiratory distress syndrome (principal); E11.65 Type 2 diabetes mellitus with hyperglycemia; I50.32 Chronic diastolic (congestive) heart failure; E55.9 Vitamin D deficiency, unspecified
CPT/HCPCS: 36415; 80048; 82306; 82607; 83735; 85025

== ENCOUNTER → 2022-12-27 | Outpatient (REF) | payer MEDICAID, SELFPAY | END | disposition home or self-care (01) | LOC: OLS.SW 05:00 | PROVIDERS: PCP Internal Medicine; Visit Provider Internal Medicine | DX: J44.9 Chronic obstructive pulmonary disease, unspecified (principal); E78.5 Hyperlipidemia, unspecified; E11.65 Type 2 diabetes mellitus with hyperglycemia; I13.0 Hypertensive heart and chronic kidney disease with heart failure and stage 1 through stage 4 chronic kidney disease, or unspecified chronic kidney disease; I50.9 Heart failure, unspecified; N18.9 Chronic kidney disease, unspecified | CPT/HCPCS: 36415; 82140 ==

== ENCOUNTER → 2022-12-28 | Outpatient (REF) | payer MEDICAID, SELFPAY ==
[2022-12-28 06:57] LABS: Absolute Lymphocyte Count 2.24 X10^3/uL (0.83-4.51); Absolute Neutrophil Count 4.9 X10^3/uL (2.0-7.7); Basophil# 0.01 X10^3/uL; Basophil% 0.1 % (0-1); Eosinophil# 0.04 X10^3/uL; Eosinophils% 0.5 % (0-5); Hematocrit 25.8 % (37-47); Hemoglobin 7.3 g/dL (12.0-15.0); Lymphocyte # 2.24 X10^3/ul (0.83-4.51); Lymphocyte % 27.4 % (19-41); Mean Corp Hgb Conc 28.3 g/dL (32-36); Mean Corpuscular Hgb 22.8 pg (27.0-32.0); Mean Corpuscular Volume 80.6 fL (81-99); Mean Platelet Vol. 9.2 fl (6.2-12.0); Monocyte# 0.96 X10^3/uL; Monocyte% 11.7 % (0-10); NRBC Flagged by Analyzer 0 % (0-5); Neutrophil # 4.92 X10^3/uL (2.7-7.7); Neutrophil % 60.1 % (47-70); Platelet Count 344 K/mm3 (150-450); RBC Distribution Width CV 17.8 % (11.6-14.6); RBC Distribution Width SD 52.4 fl (35.1-43.9); White Blood Count 8.2 K/mm3 (4.4-11.0)
[2022-12-28 07:10] LABS: ALB/GLOB Ratio 0.7 RATIO (0.9-2.4); AST(SGOT) 13 U/L (15-37); Alanine Aminotransfer ALT/SGPT 11 U/L (13-56); Albumin, Serum 2.5 g/dL (3.2-5.0); Alkaline Phosphatase 55 U/L (45-117); Anion Gap 5 (5-15); BUN 28 mg/dL (7-18); BUN/Creat Ratio 25.9 RATIO (10-20); Calcium,Total 8.1 mg/dL (8.5-10.1); Chloride 103 mmol/L (98-107); Creatinine, Serum 1.08 mg/dL (0.55-1.02); EST Glomerular Filtration Rate 56 mL/min (>60); Est Glom Filt Rate - Afr Amer 68 mL/min (>60); Globulin 3.7 g/dL (2.2-4.2); Glucose 80 mg/dL (74-106); Magnesium 1.9 mg/dL (1.6-2.6); Potassium 3.6 mmol/L (3.5-5.1); Protein, Total 6.2 g/dL (6.4-8.2); Sodium Level 140 mmol/L (136-145)
== END | disposition home or self-care (01) ==
LOC: OLS.SW 05:35
PROVIDERS: PCP Internal Medicine; Visit Provider Internal Medicine
DX: E16.2 Hypoglycemia, unspecified (principal)
CPT/HCPCS: 36415; 80053; 83735; 85025

== ENCOUNTER → 2023-01-05 | Outpatient (REF) | payer MEDICAID, SELFPAY | END | disposition home or self-care (01) | LOC: OLS.SW 05:00 | PROVIDERS: PCP Internal Medicine; Visit Provider Internal Medicine | DX: N17.9 Acute kidney failure, unspecified (principal) | CPT/HCPCS: 36415; 82140 ==

== ENCOUNTER → 2023-01-14 | Outpatient (REF) | payer MEDICAID, SELFPAY ==
[2023-01-14 08:53] LABS: Absolute Lymphocyte Count 1.46 X10^3/uL (0.83-4.51); Absolute Neutrophil Count 4.4 X10^3/uL (2.0-7.7); Basophil# 0.02 X10^3/uL; Basophil% 0.3 % (0-1); Eosinophil# 0.23 X10^3/uL; Eosinophils% 3.4 % (0-5); Hematocrit 25.8 % (37-47); Lymphocyte # 1.46 X10^3/ul (0.83-4.51); Lymphocyte % 21.5 % (19-41); Mean Corp Hgb Conc 27.1 g/dL (32-36); Mean Corpuscular Hgb 22.3 pg (27.0-32.0); Mean Corpuscular Volume 82.2 fL (81-99); Mean Platelet Vol. 9.5 fl (6.2-12.0); Monocyte% 10.3 % (0-10); NRBC Flagged by Analyzer 0 % (0-5); Neutrophil # 4.35 X10^3/uL (2.7-7.7); Neutrophil % 64.2 % (47-70); Platelet Count 344 K/mm3 (150-450); RBC Distribution Width CV 17.5 % (11.6-14.6); Red Blood Count 3.14 M/mm3 (4.2-5.4); White Blood Count 6.8 K/mm3 (4.4-11.0)
[2023-01-14 09:04] LABS: Anion Gap 4 (5-15); BUN 20 mg/dL (7-18); BUN/Creat Ratio 19.6 RATIO (10-20); Calcium,Total 8.9 mg/dL (8.5-10.1); Chloride 103 mmol/L (98-107); Creatinine, Serum 1.02 mg/dL (0.55-1.02); EST Glomerular Filtration Rate 60 mL/min (>60); Est Glom Filt Rate - Afr Amer 72 mL/min (>60); Glucose 121 mg/dL (74-106); Magnesium 2.5 mg/dL (1.6-2.6); Potassium 4.1 mmol/L (3.5-5.1); Sodium Level 143 mmol/L (136-145)
== END | disposition home or self-care (01) ==
LOC: OLS.SW 08:30
PROVIDERS: PCP Internal Medicine; Visit Provider Internal Medicine
DX: D64.9 Anemia, unspecified (principal); E78.5 Hyperlipidemia, unspecified
CPT/HCPCS: 36415; 80048; 83735; 85025

== ENCOUNTER 2023-01-18 08:50 | Outpatient (CLI) | payer MEDICAID, SELFPAY ==
[2023-01-18 09:15] VITALS: BP 137/79; PULSE 93; RESP 16; TEMP 35.8; O2SAT 93; BMI 57.2
[2023-01-18 09:52] VITALS: BP 142/83; PULSE 87; RESP 16; TEMP 35.7; O2SAT 97
[2023-01-18 10:55] VITALS: BP 136/77; PULSE 83; RESP 16; TEMP 35.5; O2SAT 98
[2023-01-18 11:48] VITALS: BP 140/78; PULSE 82; RESP 16; TEMP 35.9; O2SAT 98
== END 2023-01-18 08:51 | disposition home or self-care (01) ==
LOC: MEDOUTP 08:52
PROVIDERS: PCP Internal Medicine; Visit Provider Internal Medicine
DX: N18.9 Chronic kidney disease, unspecified (principal); D63.1 Anemia in chronic kidney disease
CPT/HCPCS: 36415; 36430; 86850; 86900; 86901; 86920; 86922; J7040; P9016; A4216

== ENCOUNTER → 2023-01-19 | Outpatient (REF) | payer MEDICAID, SELFPAY ==
[2023-01-19 09:21] LABS: Absolute Lymphocyte Count 1.82 X10^3/uL (0.83-4.51); Absolute Neutrophil Count 3.5 X10^3/uL (2.0-7.7); Basophil# 0.02 X10^3/uL; Basophil% 0.3 % (0-1); Eosinophil# 0.23 X10^3/uL; Eosinophils% 3.6 % (0-5); Hematocrit 27.6 % (37-47); Hemoglobin 7.5 g/dL (12.0-15.0); Lymphocyte # 1.82 X10^3/ul (0.83-4.51); Lymphocyte % 28.8 % (19-41); Mean Corp Hgb Conc 27.2 g/dL (32-36); Mean Corpuscular Hgb 22.4 pg (27.0-32.0); Mean Corpuscular Volume 82.4 fL (81-99); Mean Platelet Vol. 9.4 fl (6.2-12.0); Monocyte# 0.72 X10^3/uL; Monocyte% 11.4 % (0-10); NRBC Flagged by Analyzer 0 % (0-5); Neutrophil # 3.51 X10^3/uL (2.7-7.7); Neutrophil % 55.6 % (47-70); Platelet Count 367 K/mm3 (150-450); RBC Distribution Width CV 17.5 % (11.6-14.6); RBC Distribution Width SD 53.1 fl (35.1-43.9); Red Blood Count 3.35 M/mm3 (4.2-5.4); White Blood Count 6.3 K/mm3 (4.4-11.0)
== END | disposition home or self-care (01) ==
LOC: OLS.SW 05:00
PROVIDERS: PCP Internal Medicine; Visit Provider Internal Medicine
DX: E11.9 Type 2 diabetes mellitus without complications (principal); E78.5 Hyperlipidemia, unspecified
CPT/HCPCS: 36415; 85025

== ENCOUNTER → 2023-01-23 | Outpatient (REF) | payer MEDICAID, SELFPAY ==
[2023-01-23 09:06] LABS: Absolute Lymphocyte Count 1.64 X10^3/uL (0.83-4.51); Absolute Neutrophil Count 4.4 X10^3/uL (2.0-7.7); Basophil# 0.02 X10^3/uL; Basophil% 0.3 % (0-1); Eosinophil# 0.16 X10^3/uL; Eosinophils% 2.3 % (0-5); Hematocrit 26.9 % (37-47); Hemoglobin 7.4 g/dL (12.0-15.0); Lymphocyte # 1.64 X10^3/ul (0.83-4.51); Lymphocyte % 23.6 % (19-41); Mean Corp Hgb Conc 27.5 g/dL (32-36); Mean Corpuscular Hgb 22.4 pg (27.0-32.0); Mean Corpuscular Volume 81.3 fL (81-99); Mean Platelet Vol. 9.8 fl (6.2-12.0); Monocyte# 0.66 X10^3/uL; Monocyte% 9.5 % (0-10); NRBC Flagged by Analyzer 0 % (0-5); Neutrophil # 4.44 X10^3/uL (2.7-7.7); Neutrophil % 63.9 % (47-70); Platelet Count 343 K/mm3 (150-450); RBC Distribution Width CV 17.9 % (11.6-14.6); RBC Distribution Width SD 52.8 fl (35.1-43.9); Red Blood Count 3.31 M/mm3 (4.2-5.4)
== END | disposition home or self-care (01) ==
LOC: OLS.SW 05:00
PROVIDERS: PCP Internal Medicine; Visit Provider Internal Medicine
DX: D64.9 Anemia, unspecified (principal)
CPT/HCPCS: 36415; 85025

== ENCOUNTER → 2023-01-26 | Outpatient (REF) | payer MEDICAID, SELFPAY ==
[2023-01-26 10:01] LABS: Absolute Lymphocyte Count 1.85 X10^3/uL (0.83-4.51); Absolute Neutrophil Count 4.1 X10^3/uL (2.0-7.7); Basophil# 0.02 X10^3/uL; Basophil% 0.3 % (0-1); Eosinophil# 0.16 X10^3/uL; Eosinophils% 2.3 % (0-5); Hematocrit 26.5 % (37-47); Hemoglobin 7.2 g/dL (12.0-15.0); Lymphocyte # 1.85 X10^3/ul (0.83-4.51); Lymphocyte % 26.8 % (19-41); Mean Corp Hgb Conc 27.2 g/dL (32-36); Mean Corpuscular Hgb 22.4 pg (27.0-32.0); Mean Corpuscular Volume 82.3 fL (81-99); Mean Platelet Vol. 9.7 fl (6.2-12.0); Monocyte# 0.74 X10^3/uL; Monocyte% 10.7 % (0-10); NRBC Flagged by Analyzer 0 % (0-5); Neutrophil # 4.11 X10^3/uL (2.7-7.7); Neutrophil % 59.6 % (47-70); Platelet Count 309 K/mm3 (150-450); RBC Distribution Width CV 18.2 % (11.6-14.6); RBC Distribution Width SD 54.8 fl (35.1-43.9); Red Blood Count 3.22 M/mm3 (4.2-5.4); White Blood Count 6.9 K/mm3 (4.4-11.0)
== END | disposition home or self-care (01) ==
LOC: OLS.SW 05:00
PROVIDERS: PCP Internal Medicine; Visit Provider Internal Medicine
DX: D64.9 Anemia, unspecified (principal)
CPT/HCPCS: 36415; 85025

== ENCOUNTER → 2023-01-30 | Outpatient (REF) | payer MEDICAID, SELFPAY ==
[2023-01-30 09:24] LABS: Absolute Lymphocyte Count 1.55 X10^3/uL (0.83-4.51); Absolute Neutrophil Count 4.4 X10^3/uL (2.0-7.7); Basophil# 0.02 X10^3/uL; Basophil% 0.3 % (0-1); Eosinophil# 0.17 X10^3/uL; Eosinophils% 2.5 % (0-5); Hematocrit 25.8 % (37-47); Hemoglobin 7.3 g/dL (12.0-15.0); Lymphocyte # 1.55 X10^3/ul (0.83-4.51); Lymphocyte % 22.9 % (19-41); Mean Corp Hgb Conc 28.3 g/dL (32-36); Mean Corpuscular Hgb 22.7 pg (27.0-32.0); Mean Corpuscular Volume 80.4 fL (81-99); Mean Platelet Vol. 10.4 fl (6.2-12.0); Monocyte# 0.62 X10^3/uL; Monocyte% 9.1 % (0-10); NRBC Flagged by Analyzer 0 % (0-5); Neutrophil % 64.9 % (47-70); Platelet Count 313 K/mm3 (150-450); RBC Distribution Width CV 18.2 % (11.6-14.6); RBC Distribution Width SD 53.5 fl (35.1-43.9); Red Blood Count 3.21 M/mm3 (4.2-5.4); White Blood Count 6.8 K/mm3 (4.4-11.0)
== END | disposition home or self-care (01) ==
LOC: OLS.SW 04:00
PROVIDERS: PCP Internal Medicine; Referring Provider Internal Medicine; Visit Provider Internal Medicine
DX: E11.9 Type 2 diabetes mellitus without complications (principal); D64.9 Anemia, unspecified
CPT/HCPCS: 36415; 85025

== ENCOUNTER → 2023-02-02 | Outpatient (REF) | payer MEDICAID, SELFPAY ==
[2023-02-02 09:49] LABS: Absolute Neutrophil Count 3.9 X10^3/uL (2.0-7.7); Basophil# 0.02 X10^3/uL; Basophil% 0.3 % (0-1); Eosinophil# 0.18 X10^3/uL; Eosinophils% 2.7 % (0-5); Hematocrit 26.6 % (37-47); Hemoglobin 7.1 g/dL (12.0-15.0); Lymphocyte % 28.8 % (19-41); Mean Corp Hgb Conc 26.7 g/dL (32-36); Mean Corpuscular Hgb 22.1 pg (27.0-32.0); Mean Corpuscular Volume 82.9 fL (81-99); Mean Platelet Vol. 10.3 fl (6.2-12.0); Monocyte# 0.63 X10^3/uL; Monocyte% 9.5 % (0-10); NRBC Flagged by Analyzer 0 % (0-5); Neutrophil # 3.85 X10^3/uL (2.7-7.7); Neutrophil % 58.4 % (47-70); Platelet Count 285 K/mm3 (150-450); RBC Distribution Width CV 18.1 % (11.6-14.6); Red Blood Count 3.21 M/mm3 (4.2-5.4); White Blood Count 6.6 K/mm3 (4.4-11.0)
== END | disposition home or self-care (01) ==
LOC: OLS.SW 05:00
PROVIDERS: PCP Internal Medicine; Visit Provider Internal Medicine
DX: E11.65 Type 2 diabetes mellitus with hyperglycemia (principal); J44.9 Chronic obstructive pulmonary disease, unspecified; J81.0 Acute pulmonary edema
CPT/HCPCS: 36415; 85025

== ENCOUNTER → 2023-02-06 | Outpatient (REF) | payer MEDICAID, SELFPAY ==
[2023-02-06 08:20] LABS: Absolute Lymphocyte Count 1.65 X10^3/uL (0.83-4.51); Absolute Neutrophil Count 4.3 X10^3/uL (2.0-7.7); Basophil# 0.02 X10^3/uL; Basophil% 0.3 % (0-1); Eosinophil# 0.22 X10^3/uL; Eosinophils% 3.2 % (0-5); Hematocrit 24.5 % (37-47); Hemoglobin 7.1 g/dL (12.0-15.0); Lymphocyte # 1.65 X10^3/ul (0.83-4.51); Lymphocyte % 23.8 % (19-41); Mean Corpuscular Hgb 23.3 pg (27.0-32.0); Mean Corpuscular Volume 80.3 fL (81-99); Mean Platelet Vol. 10.1 fl (6.2-12.0); Monocyte# 0.69 X10^3/uL; NRBC Flagged by Analyzer 0 % (0-5); Neutrophil # 4.32 X10^3/uL (2.7-7.7); Neutrophil % 62.4 % (47-70); Platelet Count 266 K/mm3 (150-450); RBC Distribution Width CV 18.2 % (11.6-14.6); RBC Distribution Width SD 53.1 fl (35.1-43.9); Red Blood Count 3.05 M/mm3 (4.2-5.4); White Blood Count 6.9 K/mm3 (4.4-11.0)
== END | disposition home or self-care (01) ==
LOC: OLS.SW 05:00
PROVIDERS: PCP Internal Medicine; Visit Provider Internal Medicine
DX: J44.9 Chronic obstructive pulmonary disease, unspecified (principal); E11.65 Type 2 diabetes mellitus with hyperglycemia; N17.9 Acute kidney failure, unspecified
CPT/HCPCS: 36415; 85025

== ENCOUNTER → 2023-02-09 | Outpatient (REF) | payer MEDICAID, SELFPAY ==
[2023-02-09 09:56] LABS: Absolute Neutrophil Count 3.8 X10^3/uL (2.0-7.7); Basophil# 0.02 X10^3/uL; Basophil% 0.3 % (0-1); Eosinophil# 0.19 X10^3/uL; Eosinophils% 3.1 % (0-5); Hematocrit 27.3 % (37-47); Hemoglobin 7.6 g/dL (12.0-15.0); Lymphocyte % 25.7 % (19-41); Mean Corp Hgb Conc 27.8 g/dL (32-36); Mean Corpuscular Hgb 22.6 pg (27.0-32.0); Mean Corpuscular Volume 81.3 fL (81-99); Mean Platelet Vol. 10.1 fl (6.2-12.0); Monocyte# 0.58 X10^3/uL; Monocyte% 9.3 % (0-10); NRBC Flagged by Analyzer 0 % (0-5); Neutrophil # 3.81 X10^3/uL (2.7-7.7); Neutrophil % 61.3 % (47-70); Platelet Count 306 K/mm3 (150-450); RBC Distribution Width CV 18.2 % (11.6-14.6); RBC Distribution Width SD 53.7 fl (35.1-43.9); Red Blood Count 3.36 M/mm3 (4.2-5.4); White Blood Count 6.2 K/mm3 (4.4-11.0)
== END | disposition home or self-care (01) ==
LOC: OLS.SW 05:00
PROVIDERS: PCP Internal Medicine; Visit Provider Internal Medicine
DX: I50.9 Heart failure, unspecified (principal); J44.9 Chronic obstructive pulmonary disease, unspecified
CPT/HCPCS: 36415; 85025

== ENCOUNTER → 2023-02-13 | Outpatient (REF) | payer MEDICAID, SELFPAY ==
[2023-02-13 08:13] LABS: Absolute Lymphocyte Count 1.84 X10^3/uL (0.83-4.51); Basophil# 0.03 X10^3/uL; Basophil% 0.4 % (0-1); Eosinophil# 0.18 X10^3/uL; Eosinophils% 2.7 % (0-5); Hematocrit 25.3 % (37-47); Lymphocyte # 1.84 X10^3/ul (0.83-4.51); Lymphocyte % 27.5 % (19-41); Mean Corp Hgb Conc 27.7 g/dL (32-36); Mean Corpuscular Hgb 22.5 pg (27.0-32.0); Mean Corpuscular Volume 81.4 fL (81-99); Mean Platelet Vol. 9.7 fl (6.2-12.0); Monocyte# 0.63 X10^3/uL; Monocyte% 9.4 % (0-10); NRBC Flagged by Analyzer 0 % (0-5); Neutrophil % 59.9 % (47-70); Platelet Count 286 K/mm3 (150-450); RBC Distribution Width SD 52.8 fl (35.1-43.9); Red Blood Count 3.11 M/mm3 (4.2-5.4); White Blood Count 6.7 K/mm3 (4.4-11.0)
== END | disposition home or self-care (01) ==
LOC: OLS.SW 04:00
PROVIDERS: PCP Internal Medicine; Referring Provider Internal Medicine; Visit Provider Internal Medicine
DX: N17.9 Acute kidney failure, unspecified (principal); E11.9 Type 2 diabetes mellitus without complications
CPT/HCPCS: 36415; 85025

== ENCOUNTER → 2023-02-16 | Outpatient (REF) | payer MEDICAID, SELFPAY ==
[2023-02-16 09:52] LABS: Absolute Lymphocyte Count 1.66 X10^3/uL (0.83-4.51); Absolute Neutrophil Count 3.6 X10^3/uL (2.0-7.7); Basophil# 0.03 X10^3/uL; Basophil% 0.5 % (0-1); Eosinophil# 0.19 X10^3/uL; Eosinophils% 3.1 % (0-5); Hemoglobin 7.2 g/dL (12.0-15.0); Lymphocyte # 1.66 X10^3/ul (0.83-4.51); Lymphocyte % 27.3 % (19-41); Mean Corp Hgb Conc 27.7 g/dL (32-36); Mean Corpuscular Hgb 22.4 pg (27.0-32.0); Mean Corpuscular Volume 80.7 fL (81-99); Monocyte# 0.59 X10^3/uL; Monocyte% 9.7 % (0-10); NRBC Flagged by Analyzer 0 % (0-5); Neutrophil # 3.58 X10^3/uL (2.7-7.7); Neutrophil % 59.1 % (47-70); Platelet Count 308 K/mm3 (150-450); RBC Distribution Width CV 17.8 % (11.6-14.6); RBC Distribution Width SD 53.3 fl (35.1-43.9); Red Blood Count 3.22 M/mm3 (4.2-5.4); White Blood Count 6.1 K/mm3 (4.4-11.0)
== END | disposition home or self-care (01) ==
LOC: OLS.SW 05:00
PROVIDERS: PCP Internal Medicine; Visit Provider Internal Medicine
DX: J44.9 Chronic obstructive pulmonary disease, unspecified (principal)
CPT/HCPCS: 36415; 85025

== ENCOUNTER → 2023-02-20 | Outpatient (REF) | payer MEDICAID, SELFPAY ==
[2023-02-20 08:43] LABS: Absolute Lymphocyte Count 1.67 X10^3/uL (0.83-4.51); Absolute Neutrophil Count 3.9 X10^3/uL (2.0-7.7); Basophil# 0.02 X10^3/uL; Basophil% 0.3 % (0-1); Eosinophil# 0.17 X10^3/uL; Eosinophils% 2.7 % (0-5); Hemoglobin 7.1 g/dL (12.0-15.0); Lymphocyte # 1.67 X10^3/ul (0.83-4.51); Lymphocyte % 26.1 % (19-41); Mean Corp Hgb Conc 27.3 g/dL (32-36); Mean Corpuscular Volume 80.7 fL (81-99); Monocyte# 0.61 X10^3/uL; Monocyte% 9.5 % (0-10); NRBC Flagged by Analyzer 0 % (0-5); Neutrophil % 61.1 % (47-70); Platelet Count 285 K/mm3 (150-450); RBC Distribution Width CV 17.9 % (11.6-14.6); Red Blood Count 3.22 M/mm3 (4.2-5.4); White Blood Count 6.4 K/mm3 (4.4-11.0)
[2023-02-20 08:53] LABS: Anion Gap 3 (5-15); BUN 14 mg/dL (7-18); BUN/Creat Ratio 16.5 RATIO (10-20); Calcium,Total 8.7 mg/dL (8.5-10.1); Chloride 104 mmol/L (98-107); Creatinine, Serum 0.85 mg/dL (0.55-1.02); EST Glomerular Filtration Rate 74 mL/min (>60); Est Glom Filt Rate - Afr Amer 89 mL/min (>60); Glucose 47 mg/dL (74-106); Potassium 3.8 mmol/L (3.5-5.1); Sodium Level 141 mmol/L (136-145)
[2023-02-20 09:08] LABS: BNP,B-Type NATRIURETIC PEPTIDE 515.6 pg/mL (0-100)
== END | disposition home or self-care (01) ==
LOC: OLS.SW 04:00
PROVIDERS: PCP Internal Medicine; Referring Provider Internal Medicine; Visit Provider Internal Medicine
DX: I50.9 Heart failure, unspecified (principal); J44.9 Chronic obstructive pulmonary disease, unspecified; E11.9 Type 2 diabetes mellitus without complications
CPT/HCPCS: 36415; 80048; 83880; 85025

== ENCOUNTER → 2023-02-21 | Outpatient (REF) | payer SELFPAY | LOC: OLS.SW 15:20 | PROVIDERS: PCP Internal Medicine; Visit Provider Internal Medicine | DX: D64.9 Anemia, unspecified (principal) ==

== ENCOUNTER 2023-02-22 08:31 | Outpatient (CLI) | payer MEDICAID, SELFPAY ==
[2023-02-22 08:47] VITALS: BP 119/61; PULSE 93; RESP 18; TEMP 36.2; O2SAT 90
[2023-02-22 09:58] VITALS: BP 125/72; PULSE 81; RESP 16; TEMP 36.1; O2SAT 97
[2023-02-22 10:54] VITALS: BP 133/81; PULSE 78; RESP 16; TEMP 36.1; O2SAT 97
[2023-02-22 11:51] VITALS: BP 124/74; PULSE 77; RESP 16
[2023-02-22] MEDS: 0.9% NaCl Peripheral Flush Adult/Peds IV (11:58)
== END 2023-02-22 08:32 | disposition home or self-care (01) ==
LOC: MEDOUTP 08:32
PROVIDERS: PCP Internal Medicine; Visit Provider Internal Medicine
DX: D64.9 Anemia, unspecified (principal)
CPT/HCPCS: 36415; 36430; 86850; 86900; 86901; 86920; 86922; J7040; P9016; A4216

== ENCOUNTER → 2023-02-23 | Outpatient (REF) | payer MEDICAID, SELFPAY ==
[2023-02-23 10:13] LABS: Absolute Lymphocyte Count 2.23 X10^3/uL (0.83-4.51); Absolute Neutrophil Count 4.8 X10^3/uL (2.0-7.7); Basophil# 0.02 X10^3/uL; Basophil% 0.3 % (0-1); Eosinophil# 0.14 X10^3/uL; Eosinophils% 1.8 % (0-5); Hematocrit 28.9 % (37-47); Hemoglobin 8.4 g/dL (12.0-15.0); Lymphocyte # 2.23 X10^3/ul (0.83-4.51); Lymphocyte % 28.2 % (19-41); Mean Corp Hgb Conc 29.1 g/dL (32-36); Mean Corpuscular Hgb 23.2 pg (27.0-32.0); Mean Corpuscular Volume 79.8 fL (81-99); Monocyte# 0.74 X10^3/uL; Monocyte% 9.3 % (0-10); NRBC Flagged by Analyzer 0 % (0-5); Neutrophil # 4.78 X10^3/uL (2.7-7.7); Neutrophil % 60.3 % (47-70); Platelet Count 338 K/mm3 (150-450); RBC Distribution Width CV 18.3 % (11.6-14.6); RBC Distribution Width SD 52.8 fl (35.1-43.9); Red Blood Count 3.62 M/mm3 (4.2-5.4); White Blood Count 7.9 K/mm3 (4.4-11.0)
== END | disposition home or self-care (01) ==
LOC: OLS.SW 08:20
PROVIDERS: PCP Internal Medicine; Visit Provider Internal Medicine
DX: I10 Essential (primary) hypertension (principal); E11.9 Type 2 diabetes mellitus without complications
CPT/HCPCS: 36415; 85025

== ENCOUNTER → 2023-02-27 | Outpatient (REF) | payer MEDICAID, SELFPAY ==
[2023-02-27 08:59] LABS: Absolute Lymphocyte Count 1.52 X10^3/uL (0.83-4.51); Absolute Neutrophil Count 4.3 X10^3/uL (2.0-7.7); Basophil# 0.01 X10^3/uL; Basophil% 0.1 % (0-1); Eosinophil# 0.21 X10^3/uL; Eosinophils% 3.1 % (0-5); Hematocrit 29.7 % (37-47); Lymphocyte # 1.52 X10^3/ul (0.83-4.51); Lymphocyte % 22.8 % (19-41); Mean Corp Hgb Conc 26.9 g/dL (32-36); Mean Corpuscular Hgb 22.1 pg (27.0-32.0); Mean Platelet Vol. 9.8 fl (6.2-12.0); Monocyte# 0.62 X10^3/uL; Monocyte% 9.3 % (0-10); NRBC Flagged by Analyzer 0 % (0-5); Neutrophil % 64.4 % (47-70); Platelet Count 344 K/mm3 (150-450); RBC Distribution Width CV 18.3 % (11.6-14.6); Red Blood Count 3.62 M/mm3 (4.2-5.4); White Blood Count 6.7 K/mm3 (4.4-11.0)
== END | disposition home or self-care (01) ==
LOC: OLS.SW 05:00
PROVIDERS: PCP Internal Medicine; Visit Provider Internal Medicine
DX: E11.9 Type 2 diabetes mellitus without complications (principal); N17.9 Acute kidney failure, unspecified
CPT/HCPCS: 36415; 85025

== ENCOUNTER → 2023-03-02 | Outpatient (REF) | payer MEDICAID, SELFPAY ==
[2023-03-02 09:35] LABS: Absolute Lymphocyte Count 2.06 X10^3/uL (0.83-4.51); Absolute Neutrophil Count 3.4 X10^3/uL (2.0-7.7); Basophil# 0.03 X10^3/uL; Basophil% 0.5 % (0-1); Eosinophils% 3.1 % (0-5); Hematocrit 27.5 % (37-47); Hemoglobin 7.8 g/dL (12.0-15.0); Lymphocyte # 2.06 X10^3/ul (0.83-4.51); Lymphocyte % 32.1 % (19-41); Mean Corp Hgb Conc 28.4 g/dL (32-36); Mean Corpuscular Hgb 22.5 pg (27.0-32.0); Mean Corpuscular Volume 79.3 fL (81-99); Monocyte% 10.9 % (0-10); NRBC Flagged by Analyzer 0 % (0-5); Neutrophil % 53.1 % (47-70); Platelet Count 311 K/mm3 (150-450); RBC Distribution Width CV 18.2 % (11.6-14.6); RBC Distribution Width SD 52.6 fl (35.1-43.9); Red Blood Count 3.47 M/mm3 (4.2-5.4); White Blood Count 6.4 K/mm3 (4.4-11.0)
== END | disposition home or self-care (01) ==
LOC: OLS.SW 04:00
PROVIDERS: PCP Internal Medicine; Referring Provider Internal Medicine; Visit Provider Internal Medicine
DX: I50.21 Acute systolic (congestive) heart failure (principal); J44.9 Chronic obstructive pulmonary disease, unspecified
CPT/HCPCS: 36415; 85025

== ENCOUNTER → 2023-03-06 | Outpatient (REF) | payer MEDICAID, SELFPAY ==
[2023-03-06 09:30] LABS: Absolute Lymphocyte Count 2.03 X10^3/uL (0.83-4.51); Absolute Neutrophil Count 3.6 X10^3/uL (2.0-7.7); Basophil# 0.02 X10^3/uL; Basophil% 0.3 % (0-1); Eosinophil# 0.22 X10^3/uL; Eosinophils% 3.4 % (0-5); Hematocrit 28.3 % (37-47); Hemoglobin 7.7 g/dL (12.0-15.0); Lymphocyte # 2.03 X10^3/ul (0.83-4.51); Lymphocyte % 31.4 % (19-41); Mean Corp Hgb Conc 27.2 g/dL (32-36); Mean Corpuscular Hgb 21.8 pg (27.0-32.0); Mean Corpuscular Volume 80.2 fL (81-99); Mean Platelet Vol. 9.1 fl (6.2-12.0); Monocyte# 0.57 X10^3/uL; Monocyte% 8.8 % (0-10); NRBC Flagged by Analyzer 0 % (0-5); Neutrophil # 3.61 X10^3/uL (2.7-7.7); Neutrophil % 55.8 % (47-70); Platelet Count 294 K/mm3 (150-450); Red Blood Count 3.53 M/mm3 (4.2-5.4); White Blood Count 6.5 K/mm3 (4.4-11.0)
== END | disposition home or self-care (01) ==
LOC: OLS.SW 05:00
PROVIDERS: PCP Internal Medicine; Visit Provider Internal Medicine
DX: J44.9 Chronic obstructive pulmonary disease, unspecified (principal); E11.65 Type 2 diabetes mellitus with hyperglycemia; N17.9 Acute kidney failure, unspecified
CPT/HCPCS: 36415; 85025

== ENCOUNTER → 2023-03-09 | Outpatient (REF) | payer MEDICAID, SELFPAY ==
[2023-03-09 09:12] LABS: Absolute Lymphocyte Count 1.65 X10^3/uL (0.83-4.51); Basophil# 0.02 X10^3/uL; Basophil% 0.3 % (0-1); Eosinophil# 0.18 X10^3/uL; Eosinophils% 2.8 % (0-5); Hematocrit 27.2 % (37-47); Hemoglobin 7.5 g/dL (12.0-15.0); Lymphocyte # 1.65 X10^3/ul (0.83-4.51); Lymphocyte % 25.9 % (19-41); Mean Corp Hgb Conc 27.6 g/dL (32-36); Mean Corpuscular Hgb 22.2 pg (27.0-32.0); Mean Corpuscular Volume 80.5 fL (81-99); Mean Platelet Vol. 9.9 fl (6.2-12.0); Monocyte% 7.9 % (0-10); NRBC Flagged by Analyzer 0 % (0-5); Neutrophil % 62.9 % (47-70); Platelet Count 315 K/mm3 (150-450); RBC Distribution Width CV 18.1 % (11.6-14.6); RBC Distribution Width SD 53.3 fl (35.1-43.9); Red Blood Count 3.38 M/mm3 (4.2-5.4); White Blood Count 6.4 K/mm3 (4.4-11.0)
== END | disposition home or self-care (01) ==
LOC: OLS.SW 05:00
PROVIDERS: PCP Internal Medicine; Visit Provider Internal Medicine
DX: E11.9 Type 2 diabetes mellitus without complications (principal)
CPT/HCPCS: 36415; 85025

== ENCOUNTER → 2023-03-13 | Outpatient (REF) | payer MEDICAID, SELFPAY ==
[2023-03-13 11:03] LABS: Absolute Lymphocyte Count 1.48 X10^3/uL (0.83-4.51); Absolute Neutrophil Count 5.6 X10^3/uL (2.0-7.7); Basophil# 0.03 X10^3/uL; Basophil% 0.4 % (0-1); Eosinophil# 0.16 X10^3/uL; Hematocrit 28.5 % (37-47); Hemoglobin 7.8 g/dL (12.0-15.0); Lymphocyte # 1.48 X10^3/ul (0.83-4.51); Lymphocyte % 18.7 % (19-41); Mean Corp Hgb Conc 27.4 g/dL (32-36); Mean Corpuscular Hgb 22.3 pg (27.0-32.0); Mean Corpuscular Volume 81.4 fL (81-99); Mean Platelet Vol. 10.2 fl (6.2-12.0); Monocyte# 0.66 X10^3/uL; Monocyte% 8.3 % (0-10); NRBC Flagged by Analyzer 0 % (0-5); Neutrophil # 5.55 X10^3/uL (2.7-7.7); Neutrophil % 70.2 % (47-70); Platelet Count 318 K/mm3 (150-450); RBC Distribution Width CV 18.3 % (11.6-14.6); RBC Distribution Width SD 53.4 fl (35.1-43.9); White Blood Count 7.9 K/mm3 (4.4-11.0)
[2023-03-13 11:21] LABS: Vitamin D,25 Hydroxy 51.2 ng/mL
[2023-03-13 11:23] LABS: Anion Gap 4 (5-15); BUN 14 mg/dL (7-18); BUN/Creat Ratio 16.5 RATIO (10-20); Calcium,Total 9.1 mg/dL (8.5-10.1); Chloride 102 mmol/L (98-107); Creatinine, Serum 0.85 mg/dL (0.55-1.02); EST Glomerular Filtration Rate 74 mL/min (>60); Est Glom Filt Rate - Afr Amer 89 mL/min (>60); Glucose 141 mg/dL (74-106); Potassium 3.8 mmol/L (3.5-5.1); Sodium Level 144 mmol/L (136-145)
== END | disposition home or self-care (01) ==
LOC: OLS.SW 05:00
PROVIDERS: PCP Internal Medicine; Visit Provider Internal Medicine
DX: I50.9 Heart failure, unspecified (principal); J44.9 Chronic obstructive pulmonary disease, unspecified; E11.9 Type 2 diabetes mellitus without complications
CPT/HCPCS: 36415; 80048; 82306; 85025

== ENCOUNTER → 2023-03-16 | Outpatient (REF) | payer MEDICAID, SELFPAY ==
[2023-03-16 09:03] LABS: Absolute Lymphocyte Count 1.71 X10^3/uL (0.83-4.51); Absolute Neutrophil Count 3.9 X10^3/uL (2.0-7.7); Basophil# 0.02 X10^3/uL; Basophil% 0.3 % (0-1); Eosinophil# 0.26 X10^3/uL; Eosinophils% 4.1 % (0-5); Hematocrit 27.4 % (37-47); Hemoglobin 7.6 g/dL (12.0-15.0); Lymphocyte # 1.71 X10^3/ul (0.83-4.51); Lymphocyte % 26.8 % (19-41); Mean Corp Hgb Conc 27.7 g/dL (32-36); Mean Corpuscular Hgb 22.6 pg (27.0-32.0); Mean Corpuscular Volume 81.5 fL (81-99); Mean Platelet Vol. 9.7 fl (6.2-12.0); Monocyte# 0.52 X10^3/uL; Monocyte% 8.1 % (0-10); NRBC Flagged by Analyzer 0 % (0-5); Neutrophil # 3.86 X10^3/uL (2.7-7.7); Neutrophil % 60.4 % (47-70); Platelet Count 322 K/mm3 (150-450); RBC Distribution Width CV 18.2 % (11.6-14.6); RBC Distribution Width SD 53.4 fl (35.1-43.9); Red Blood Count 3.36 M/mm3 (4.2-5.4); White Blood Count 6.4 K/mm3 (4.4-11.0)
== END | disposition home or self-care (01) ==
LOC: OLS.SW 05:00
PROVIDERS: PCP Internal Medicine; Visit Provider Internal Medicine
DX: E11.9 Type 2 diabetes mellitus without complications (principal); J81.0 Acute pulmonary edema
CPT/HCPCS: 36415; 85025

== ENCOUNTER → 2023-03-20 | Outpatient (REF) | payer MEDICAID, SELFPAY ==
[2023-03-20 08:23] LABS: Absolute Lymphocyte Count 1.62 X10^3/uL (0.83-4.51); Absolute Neutrophil Count 4.5 X10^3/uL (2.0-7.7); Basophil# 0.02 X10^3/uL; Basophil% 0.3 % (0-1); Eosinophil# 0.22 X10^3/uL; Eosinophils% 3.1 % (0-5); Hematocrit 28.7 % (37-47); Hemoglobin 7.8 g/dL (12.0-15.0); Lymphocyte # 1.62 X10^3/ul (0.83-4.51); Lymphocyte % 23.1 % (19-41); Mean Corp Hgb Conc 27.2 g/dL (32-36); Mean Corpuscular Hgb 22.2 pg (27.0-32.0); Mean Corpuscular Volume 81.5 fL (81-99); Mean Platelet Vol. 9.3 fl (6.2-12.0); Monocyte% 8.6 % (0-10); NRBC Flagged by Analyzer 0 % (0-5); Neutrophil # 4.52 X10^3/uL (2.7-7.7); Neutrophil % 64.6 % (47-70); Platelet Count 354 K/mm3 (150-450); RBC Distribution Width CV 18.3 % (11.6-14.6); RBC Distribution Width SD 53.7 fl (35.1-43.9); Red Blood Count 3.52 M/mm3 (4.2-5.4)
== END | disposition home or self-care (01) ==
LOC: OLS.SW 06:10
PROVIDERS: PCP Internal Medicine; Referring Provider Internal Medicine; Visit Provider Internal Medicine
DX: E11.9 Type 2 diabetes mellitus without complications (principal)
CPT/HCPCS: 36415; 85025

== ENCOUNTER → 2023-03-23 | Outpatient (REF) | payer MEDICAID, SELFPAY ==
[2023-03-23 09:35] LABS: Absolute Lymphocyte Count 1.86 X10^3/uL (0.83-4.51); Absolute Neutrophil Count 3.3 X10^3/uL (2.0-7.7); Basophil# 0.02 X10^3/uL; Basophil% 0.3 % (0-1); Eosinophil# 0.21 X10^3/uL; Eosinophils% 3.5 % (0-5); Hematocrit 28.3 % (37-47); Lymphocyte # 1.86 X10^3/ul (0.83-4.51); Lymphocyte % 31.2 % (19-41); Mean Corp Hgb Conc 28.3 g/dL (32-36); Mean Corpuscular Hgb 22.3 pg (27.0-32.0); Mean Corpuscular Volume 78.8 fL (81-99); Mean Platelet Vol. 9.7 fl (6.2-12.0); Monocyte# 0.53 X10^3/uL; Monocyte% 8.9 % (0-10); NRBC Flagged by Analyzer 0 % (0-5); Neutrophil # 3.34 X10^3/uL (2.7-7.7); Neutrophil % 55.9 % (47-70); Platelet Count 354 K/mm3 (150-450); RBC Distribution Width CV 18.4 % (11.6-14.6); Red Blood Count 3.59 M/mm3 (4.2-5.4)
== END | disposition home or self-care (01) ==
LOC: OLS.SW 05:00
PROVIDERS: PCP Internal Medicine; Referring Provider Internal Medicine; Visit Provider Internal Medicine
DX: I50.9 Heart failure, unspecified (principal); J44.9 Chronic obstructive pulmonary disease, unspecified
CPT/HCPCS: 36415; 85025

== ENCOUNTER → 2023-03-23 | Outpatient (CLI) | payer MEDICAID, SELFPAY ==
--- NOTE | 2023-03-23 12:48 | MRI_ITS ---
EXAM: MR CERVICAL SPINE WITHOUT INTRAVENOUS CONTRAST CLINICAL INDICATION: NECK PAIN TECHNIQUE: Multiplanar and multisequence MR images of the cervical spine without intravenous contrast were performed. COMPARISON: No relevant prior studies available. FINDINGS: VERTEBRAE: Unremarkable. Normal vertebral bodies and posterior elements. Normal alignment. Normal craniocervical junction and cervicothoracic junction. No spondylolisthesis. There is straightening of the normal cervical lordosis. SPINAL CORD: Unremarkable in signal and morphology. SOFT TISSUES: Unremarkable. No prevertebral soft tissue swelling. LYMPH NODES: Unremarkable. There is no cervical adenopathy. DISCS/SPINAL CANAL/NEURAL FORAMINA: C2-3: Normal disc height and morphology. Normal central canal. Foramina are patent. C3-4: Mild disc space narrowing. Normal central canal. Mild noncompressive spondylotic bar. Foraminal stenosis is moderate on the right severe on the left due to uncinate and facet hypertrophy. C4-5: Normal disc height and morphology. Mild, noncompressive spondylotic bar. Normal central canal. Foramina are patent. C5-6: Mild disc space narrowing. Mild, noncompressive spondylotic bar. Normal central canal. Foramina are patent. C6-7: Normal disc height and morphology. Mild, noncompressive spondylotic bar. Normal central canal. Foramina are patent. C7-T1: Normal disc height and morphology. Normal central canal. Foramina are patent. MRI/Spine Cervical (Routine) IMPRESSION: No compressive disc disease or canal stenosis. Foraminal stenosis at C3-4. Electronically Signed: Belle Carlos MD at 20:50 EDT Reading Location ID and State: [id number] / Tel , Service support ,
--- NOTE | 2023-03-23 12:53 | MRI_ITS ---
STUDY: MRI RIGHT SHOULDER REASON FOR EXAM: Female, 57 years old. Right shoulder pain. History of right arm blood clot. TECHNIQUE: Standardized fat and water weighted pulse sequences were obtained in all 3 orthogonal planes. COMPARISON: Right shoulder x-rays dated December 21, 2022 showing subluxation of the right humeral head in relation to the glenoid. FINDINGS: Supraspinatus tendinosis with thickening and increased signal intensity with minimal articular surface fraying without a partial thickness or full thickness tear (coronal series 6 images 12-17). Infraspinatus tendinosis with thickening and increased signal intensity without a partial thickness or full thickness tear (coronal series 6 images 7-11). Subscapularis tendinosis of the upper fibers with a full-thickness partial width tear of the inferior fibers and medial subluxation of the long head of the biceps tendon (axial series 5 images 6-13). Normal teres minor tendon. Normal supraspinatus muscle. Normal infraspinatus muscle. Normal subscapularis muscle. Normal teres minor muscle. Moderate to marked loss of articular cartilage of the glenohumeral joint with reactive subchondral bone marrow edema and osteophyte formation in the glenoid. Moderate to large glenohumeral joint effusion (axial series 5 images 5-13). Normal humeral head. Normal biceps labral complex. Proximal subluxation of the long head of the biceps tendon as described. Normal labrum. Normal capsulo- ligamentous complex. Normal rotator interval. AC joint effusion with extravasation of fluid superior and lateral to the AC joint. AC joint hypertrophy resulting in narrowing of the subacromial space (coronal series 6 images 10-16). There is a Type II morphology (curved), with a neutral orientation. Subacromial-subdeltoid bursal fluid (coronal series 7 image 17). Normal visualized coracohumeral and coracoacromial ligaments. Normal quadrilateral space. Normal axillary space. Minimal deltoid muscle atrophy (axial series 4 images 1-7). Normal trapezius muscle. MRI/Upper Ext Joint Only(Routine) IMPRESSION: Supraspinatus and infraspinatus tendinosis without a full-thickness or full-thickness tear. Subscapularis tendinosis of the upper fibers with a full-thickness partial width tear of the inferior fibers. Medial subluxation of the long head of the biceps tendon proximally. Moderate to marked arthrosis of the glenohumeral joint. AC joint effusion with extravasation of AC joint fluid superiorly and laterally. AC joint hypertrophy resulting in narrowing of the subacromial space. Minimal deltoid muscle atrophy. Moderate-sized glenohumeral joint effusion with fluid in the subacromial-subdeltoid bursa. Electronically Signed: Sixto Rios MD at 11:23 EDT ,
== END | disposition home or self-care (01) ==
LOC: MRI 12:44
PROVIDERS: PCP Internal Medicine; Referring Provider Internal Medicine; Visit Provider Internal Medicine
DX: M25.511 Pain in right shoulder (principal); M54.2 Cervicalgia
CPT/HCPCS: 72141; 73221

== ENCOUNTER → 2023-03-27 | Outpatient (REF) | payer MEDICAID, SELFPAY ==
[2023-03-27 08:43] LABS: Absolute Lymphocyte Count 1.58 X10^3/uL (0.83-4.51); Absolute Neutrophil Count 3.8 X10^3/uL (2.0-7.7); Basophil# 0.03 X10^3/uL; Basophil% 0.5 % (0-1); Eosinophil# 0.22 X10^3/uL; Eosinophils% 3.6 % (0-5); Hematocrit 30.1 % (37-47); Hemoglobin 8.2 g/dL (12.0-15.0); Lymphocyte # 1.58 X10^3/ul (0.83-4.51); Lymphocyte % 25.6 % (19-41); Mean Corp Hgb Conc 27.2 g/dL (32-36); Mean Corpuscular Hgb 22.1 pg (27.0-32.0); Mean Corpuscular Volume 81.1 fL (81-99); Mean Platelet Vol. 9.2 fl (6.2-12.0); Monocyte# 0.48 X10^3/uL; Monocyte% 7.8 % (0-10); NRBC Flagged by Analyzer 0 % (0-5); Neutrophil # 3.83 X10^3/uL (2.7-7.7); Platelet Count 337 K/mm3 (150-450); RBC Distribution Width SD 53.1 fl (35.1-43.9); Red Blood Count 3.71 M/mm3 (4.2-5.4); White Blood Count 6.2 K/mm3 (4.4-11.0)
== END | disposition home or self-care (01) ==
LOC: OLS.SW 06:58
PROVIDERS: PCP Internal Medicine; Visit Provider Internal Medicine
DX: E11.9 Type 2 diabetes mellitus without complications (principal); I10 Essential (primary) hypertension
CPT/HCPCS: 36415; 85025

== ENCOUNTER → 2023-03-30 | Outpatient (REF) | payer MEDICAID, SELFPAY ==
[2023-03-30 09:36] LABS: Absolute Lymphocyte Count 1.64 X10^3/uL (0.83-4.51); Basophil# 0.02 X10^3/uL; Basophil% 0.4 % (0-1); Eosinophil# 0.22 X10^3/uL; Eosinophils% 4.1 % (0-5); Hemoglobin 8.3 g/dL (12.0-15.0); Lymphocyte # 1.64 X10^3/ul (0.83-4.51); Lymphocyte % 30.6 % (19-41); Mean Corp Hgb Conc 27.7 g/dL (32-36); Mean Corpuscular Hgb 21.5 pg (27.0-32.0); Mean Corpuscular Volume 77.7 fL (81-99); Monocyte# 0.46 X10^3/uL; Monocyte% 8.6 % (0-10); NRBC Flagged by Analyzer 0 % (0-5); Neutrophil # 3.01 X10^3/uL (2.7-7.7); Neutrophil % 56.1 % (47-70); Platelet Count 348 K/mm3 (150-450); RBC Distribution Width CV 17.9 % (11.6-14.6); RBC Distribution Width SD 50.3 fl (35.1-43.9); Red Blood Count 3.86 M/mm3 (4.2-5.4); White Blood Count 5.4 K/mm3 (4.4-11.0)
== END | disposition home or self-care (01) ==
LOC: OLS.SW 07:20
PROVIDERS: PCP Internal Medicine; Visit Provider Internal Medicine
DX: J96.22 Acute and chronic respiratory failure with hypercapnia (principal)
CPT/HCPCS: 36415; 85025

== ENCOUNTER 2023-04-03 09:39 | Emergency (ER) | payer MEDICAID, SELFPAY ==
[2023-04-03 09:40] VITALS: BP 150/81; PULSE 88; RESP 20; TEMP 36.3; O2SAT 93; BMI 53.7
--- NOTE | 2023-04-03 10:02 | RAD_ITS ---
EXAM: XR LUMBOSACRAL SPINE, 2 OR 3 VIEWS CLINICAL INDICATION: pain TECHNIQUE: Frontal and lateral views of the lumbar spine and sacrum. COMPARISON: No relevant prior studies available. FINDINGS: VERTEBRAE: Normal. Preserved vertebral body height. No fracture. No spondylolisthesis. Preservation of the normal lumbar lordosis. DISC SPACES: No acute findings. Disc spaces are maintained. RAD/Lumbar Spine 2 or 3 Views IMPRESSION: No evidence of lumbar spinal fracture or spondylolisthesis. Electronically Signed: Matthew Rahman MD at 11:57 EDT ,
--- NOTE | 2023-04-03 10:02 | RAD_ITS ---
EXAM: XR RIGHT KNEE COMPLETE, 4 OR MORE VIEWS CLINICAL INDICATION: pain TECHNIQUE: Four or more views of the right knee. COMPARISON: No relevant prior studies available. FINDINGS: BONES/JOINTS: Mild patellar spurring. No acute fracture or subluxation. No significant joint space narrowing. No joint effusion. SOFT TISSUES: Normal. No soft tissue swelling or gas. No radiopaque foreign body. RAD/Knee 4 or More Views IMPRESSION: No acute abnormality. Mild DJD. Electronically Signed: Matthew Rahman MD at 11:53 EDT ,
--- NOTE | 2023-04-03 10:02 | RAD_ITS ---
EXAM: XR RIGHT SHOULDER COMPLETE, 2 OR MORE VIEWS CLINICAL INDICATION: pain TECHNIQUE: Two or more views of the right shoulder. COMPARISON: No relevant prior studies available. FINDINGS: BONES/JOINTS: No acute abnormality. SOFT TISSUES: Normal. No soft tissue swelling or gas. No radiopaque foreign body. LUNGS AND PLEURAL SPACES: Right lung opacity which may represent pneumonia, edema, hemorrhage or contusion. RAD/Shoulder min 2 Views IMPRESSION: No acute bone or joint abnormality. Right lung opacity as described above. Electronically Signed: Matthew Rahman MD at 11:56 EDT ,
--- NOTE | 2023-04-03 10:02 | RAD_ITS ---
EXAM: XR CERVICAL SPINE, 2 OR 3 VIEWS CLINICAL INDICATION: pain TECHNIQUE: Frontal and lateral views of the cervical spine. COMPARISON: No relevant prior studies available. FINDINGS: VERTEBRAE: Loss of the normal cervical lordosis which may be due to muscle spasm or head positioning. No acute fracture or subluxation. DISC SPACES: Multilevel disc space narrowing and vertebral body hypertrophy most prominent at C5-6. SOFT TISSUES: Normal. No prevertebral soft tissue widening. LUNG APICES: Clear. RAD/Cerv Spine 4 or 5 Views IMPRESSION: Moderate spondylosis. Electronically Signed: Matthew Rahman MD at 11:52 EDT ,
--- NOTE | 2023-04-03 10:02 | RAD_ITS ---
EXAM: XR THORACIC SPINE, 3 VIEWS CLINICAL INDICATION: pain TECHNIQUE: Frontal, lateral and swimmer''s views of the thoracic spine. COMPARISON: No relevant prior studies available. FINDINGS: VERTEBRAE: Normal. No acute fracture or subluxation. DISC SPACES: Multilevel disc space narrowing and moderate vertebral body hypertrophy. LUNGS AND PLEURAL SPACES: Blunting of the left costophrenic angle may be due to a small amount of fluid or pleural thickening. HEART: Heart is enlarged. VASCULATURE: Prominent central vessels which may represent changes of pulmonary arterial hypertension. RAD/Thoracic Spine 3 Views IMPRESSION: 1. No acute thoracic spine abnormality. 2. Moderate diffuse spondylosis. 3. Cardiomegaly. 4. Question pulmonary arterial hypertension. Electronically Signed: Matthew Rahman MD at 11:59 EDT ,
--- NOTE | 2023-04-03 10:03 | RAD_ITS ---
EXAM: XR LEFT KNEE COMPLETE, 4 OR MORE VIEWS CLINICAL INDICATION: pain TECHNIQUE: Four or more views of the left knee. COMPARISON: No relevant prior studies available. FINDINGS: BONES/JOINTS: No acute fracture, subluxation or joint effusion. Narrowing of the medial knee joint compartment associated with mild osteophytosis. SOFT TISSUES: Normal. No soft tissue swelling or gas. No radiopaque foreign body. RAD/Knee 4 or More Views IMPRESSION: No acute bone or joint abnormality. Moderate DJD. Electronically Signed: Matthew Rahman MD at 11:54 EDT ,
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
[2023-04-03] MEDS: oxyCODONE 5 MG Tablet PO (10:18)
[2023-04-03 12:57] VITALS: BP 134/78; PULSE 64; RESP 14; TEMP 36.4; O2SAT 99
== END 2023-04-03 13:40 | disposition home or self-care (01) ==
PROVIDERS: Emergency Provider Student in an Organized Health Care Education/Training Program; PCP Internal Medicine; Visit Provider Student in an Organized Health Care Education/Training Program
DX: S16.1XXA Strain of muscle, fascia and tendon at neck level, initial encounter (principal); I50.32 Chronic diastolic (congestive) heart failure; N18.32 Chronic kidney disease, stage 3b; S29.019A Strain of muscle and tendon of unspecified wall of thorax, initial encounter; S39.012A Strain of muscle, fascia and tendon of lower back, initial encounter; S80.02XA Contusion of left knee, initial encounter; S80.01XA Contusion of right knee, initial encounter; K76.0 Fatty (change of) liver, not elsewhere classified; E66.9 Obesity, unspecified; W07.XXXA Fall from chair, initial encounter
CPT/HCPCS: 72050; 72072; 72100; 73030; 73564; 99284

== ENCOUNTER → 2023-04-04 | Outpatient (REF) | payer MEDICAID, SELFPAY ==
[2023-04-04 09:38] LABS: Absolute Lymphocyte Count 2.13 X10^3/uL (0.83-4.51); Absolute Neutrophil Count 5.2 X10^3/uL (2.0-7.7); Basophil# 0.02 X10^3/uL; Basophil% 0.2 % (0-1); Eosinophil# 0.22 X10^3/uL; Eosinophils% 2.7 % (0-5); Hemoglobin 9.8 g/dL (12.0-15.0); Lymphocyte # 2.13 X10^3/ul (0.83-4.51); Lymphocyte % 26.3 % (19-41); Mean Corpuscular Hgb 21.7 pg (27.0-32.0); Mean Corpuscular Volume 77.6 fL (81-99); Mean Platelet Vol. 9.7 fl (6.2-12.0); Monocyte# 0.49 X10^3/uL; Monocyte% 6.1 % (0-10); NRBC Flagged by Analyzer 0 % (0-5); Neutrophil # 5.21 X10^3/uL (2.7-7.7); Neutrophil % 64.5 % (47-70); Platelet Count 359 K/mm3 (150-450); RBC Distribution Width CV 17.8 % (11.6-14.6); Red Blood Count 4.51 M/mm3 (4.2-5.4); White Blood Count 8.1 K/mm3 (4.4-11.0)
== END | disposition home or self-care (01) ==
LOC: OLS.SW 04:00
PROVIDERS: PCP Internal Medicine; Referring Provider Internal Medicine; Visit Provider Internal Medicine
DX: D64.9 Anemia, unspecified (principal)
CPT/HCPCS: 36415; 85025

== ENCOUNTER → 2023-04-06 | Outpatient (REF) | payer MEDICAID, SELFPAY ==
[2023-04-06 09:26] LABS: Absolute Lymphocyte Count 2.16 X10^3/uL (0.83-4.51); Absolute Neutrophil Count 6.1 X10^3/uL (2.0-7.7); Basophil# 0.03 X10^3/uL; Basophil% 0.3 % (0-1); Eosinophil# 0.13 X10^3/uL; Eosinophils% 1.4 % (0-5); Hematocrit 35.7 % (37-47); Hemoglobin 9.8 g/dL (12.0-15.0); Lymphocyte # 2.16 X10^3/ul (0.83-4.51); Lymphocyte % 23.9 % (19-41); Mean Corp Hgb Conc 27.5 g/dL (32-36); Mean Corpuscular Hgb 21.5 pg (27.0-32.0); Mean Corpuscular Volume 78.3 fL (81-99); Mean Platelet Vol. 9.8 fl (6.2-12.0); Monocyte# 0.59 X10^3/uL; Monocyte% 6.5 % (0-10); NRBC Flagged by Analyzer 0 % (0-5); Neutrophil % 67.8 % (47-70); Platelet Count 342 K/mm3 (150-450); RBC Distribution Width SD 50.8 fl (35.1-43.9); Red Blood Count 4.56 M/mm3 (4.2-5.4)
[2023-04-08 10:23] LABS: Hemoglobin A1c 6.7 % (3.8-5.6)
== END | disposition home or self-care (01) ==
LOC: OLS.SW 05:00
PROVIDERS: PCP Internal Medicine; Visit Provider Internal Medicine
DX: D64.9 Anemia, unspecified (principal); E11.9 Type 2 diabetes mellitus without complications
CPT/HCPCS: 36415; 83036; 85025